=== PATIENT | male | born 1945 | race Caucasian/White ===

== ENCOUNTER 2020-05-30 10:15 | Outpatient (REF) | payer MEDICARE, OTHER, SELFPAY ==
[2020-05-30 11:27] LABS: MANUAL DIFF FLAG NO
[2020-05-30 11:30] LABS: Basophils Percent Auto 0.3 % (0-2); Eosinophils Absolute Auto 0.1 X10*3/uL (0.0-0.4); Eosinophils Percent Auto 1.7 % (0-4); Hematocrit 36.7 % (42-52); Hemoglobin 11.7 g/dl (14.0-18.0); Imm Gran Abs Auto 0.06 X10*3/uL (0.00-0.03); Imm Gran Pct Auto 0.9 % (0.0-0.4); Lymphocytes Absolute Auto 1.1 X10*3/uL (1.2-4.9); Lymphocytes Percent Auto 15.7 % (20-40); Mean Corpuscular HGB Conc 31.9 g/dl (31.0-36.0); Mean Corpuscular Hemoglobin 26.5 pg (27.0-33.0); Monocytes Absolute Auto 0.7 X10*3/uL (0.1-1.2); Monocytes Percent Auto 9.7 % (2-11); Neutrophils Absolute Auto 4.9 X10*3/uL (2.0-8.3); Neutrophils Percent Auto 71.7 % (45-73); Platelet Count 182 X10*3/uL (160-400); Red Blood Count 4.42 X10*6/uL (4.60-5.80); Red Cell Distribution Width 14.8 % (11.0-16.0); White Blood Count 6.9 X10*3/uL (4.8-10.8)
[2020-05-30 11:48] LABS: Anion Gap 13 (12-20); Blood Urea Nitrogen 28 mg/dL (9-16); Carbon Dioxide 26 mmol/L (22-29); Chloride 104 mmol/L (96-108); Estimated Glomerular Filt Rate 46; Potassium 4.1 mmol/l (3.3-5.1); Sodium 139 mmol/L (135-145)
== END 2020-05-30 10:16 | disposition home or self-care (01) ==
LOC: HO.LAB 10:15
PROVIDERS: Visit Provider Internal Medicine Hypertension Specialist
DX: I12.9 Hypertensive chronic kidney disease with stage 1 through stage 4 chronic kidney disease, or unspecified chronic kidney disease (principal); N18.2 Chronic kidney disease, stage 2 (mild)
CPT/HCPCS: 36415; 80051; 82565; 84520; 85025

== ENCOUNTER → 2020-07-05 08:19 | Outpatient (BNVA) | payer MEDICARE, SELFPAY | PROVIDERS: PCP Family Medicine; Referring Provider Family Medicine; Visit Provider Dietitian, Registered | DX: Z76.89 Persons encountering health services in other specified circumstances (principal) ==

== ENCOUNTER → 2020-07-05 08:19 | Outpatient (BNVA) | payer MEDICARE, SELFPAY | PROVIDERS: PCP Family Medicine; Referring Provider Family Medicine; Visit Provider Dietitian, Registered | DX: E66.9 Obesity, unspecified (principal) ==

== ENCOUNTER → 2020-08-23 11:09 | Outpatient (BNVA) | payer MEDICARE, SELFPAY | PROVIDERS: PCP Family Medicine; Visit Provider Dietitian, Registered | DX: Z76.89 Persons encountering health services in other specified circumstances (principal) ==

== ENCOUNTER 2022-04-29 14:42 | Emergency (ER) | payer MEDICARE, OTHER, SELFPAY ==
--- NOTE | ~2022-04-29 | CT_ITS ---
EXAM: CT scan of the head and cervical spine. INDICATION: Reason for Exam injury, pain TECHNIQUE: A noncontrast CT scan was performed from the skull base to the vertex. A noncontrast CT scan of the cervical spine was performed from the base of the skull through T1 at 2.5 mm and 1.25 mm collimation. Coronal and sagittal reformats were obtained at the acquisition workstation. This CT examination was performed using dose optimization techniques as appropriate, variously including the following: *Automated exposure control *Adjustment of mA and/or kV according to patient size (this includes techniques or standardized protocols for targeted exams where dose is matched to indication/reason for exam; i.e. extremities or head) *Use of iterative reconstruction technique DLP: 411 and 747 mGy-cm COMPARISON: None FINDINGS: Head: There is no evidence of acute intracranial hemorrhage or territorial infarction. Grimes-white matter differentiation is preserved. No abnormal mass effect or midline shift. No extra-axial fluid collections. The ventricles and sulcal spaces are proportional without hydrocephalus. Proportional prominence of the ventricles and sulcal spaces. No acute osseous or soft tissue abnormalities. The mastoid air cells and visualized portions of the paranasal sinuses are well aerated. Cervical Spine: The atlantooccipital and atlantoaxial articulations intact. Straightening of the normal cervical lordosis. Otherwise, there is anatomic alignment of the vertebral bodies and posterior elements. No evidence of acute fracture or subluxation. The moderately severe diffuse spondylosis.. There is no prevertebral soft tissue swelling. The thyroid gland and remaining cervical soft tissues are normal in appearance. The lung apices demonstrate no abnormalities. CT/CT cervical spine wo IV con IMPRESSION: No acute intracranial pathology. No acute fracture subluxation cervical spine. Moderate spondylosis.
[2022-04-29 15:43] VITALS: BP 166/78; PULSE 77; RESP 16; TEMP 35.9; O2SAT 95; BMI 27.9
--- NOTE | 2022-04-29 16:21 | ED.GENADULT ---
HPI - General Adult General Chief complaint: General Medical Stated complaint: Golf cart inj on Saturday, Headache, neck pain Time Seen by Provider: 04/29/22 15:50 Source: patient Mode of arrival: ambulatory Limitations: no limitations History of Present Illness HPI narrative: This is a 76-year-old male with a history of hypertension, hyperlipidemia, BPH, [id number]-qberrvqlj diabetes, GERD, diabetic neuropathy, pulmonary hypertension who is on 81 mg of aspirin who presents with headache and neck pain after an injury which occurred on Saturday. Patient tells me he was golfing about to take a swing when his partner knocked him over with the golf car. Patient believes he fell on the right side of his body but his head was looking to the left and he did strike his head. There was no loss of consciousness. He reports neck pain and headache since the injury. Also some abrasions over the right lower leg and right upper back. No chest pain, abdominal pain, back pain, vomiting, vision changes, dizziness, weakness/numbness/tingling of the upper or lower extremity Related Data Previous Rx's Medication Instructions Recorded cyclobenzaprine 10 mg tablet 10 mg PO TID PRN muscle spasm #15 04/29/22 tabs Allergies Allergy/AdvReac Type Severity Reaction Status Date / Time demerol Allergy Unknown itching Uncoded 04/20/20 00:00 From DEMEROL AdvReac Mild ITCHINESS Uncoded 05/05/20 15:39 Review of Systems Review of Systems: Yes all other systems are reviewed and are negative Constitutional: Constitutional: Reports no additional constitutional complaints, Denies body ache(s), Denies chills, Denies fever(s), Reports headache(s) and Denies weakness Eyes: Eyes: Reports no additional eye complaints and Denies change in vision ENT: Reports system reviewed and no additional complaints, except as documented, Denies dizziness, Reports headache(s), Denies nasal congestion, Denies nasal discharge and Reports neck pain Cardiovascular: Cardiovascular: Reports no additional cardiovascular complaints, Denies chest pain, Denies leg edema and Denies dyspnea Respiratory: Respiratory: Reports no additional respiratory complaints, Denies cough and Denies dyspnea Gastrointestinal: Gastrointestinal: Reports no additional gastrointestinal complaints, Denies abdominal pain, Denies diarrhea, Denies nausea and Denies vomiting Genitourinary: Genitourinary: Denies urinary incontinence Musculoskeletal: Musculoskeletal: Reports no additional musculoskeletal complaints, Denies back pain, Denies arthralgias, Denies joint swelling, Reports neck pain, Denies numbness and Denies tingling Integumentary/Breasts: Skin/Breast: Reports system reviewed and no additional complaints, except as docu and Denies rash Neurologic: Reports system reviewed and no additional complaints, except as documented, Denies dizziness, Reports headache(s), Denies numbness, Denies tingling and Denies weakness [facility] Past Medical History Attestation statement: The following information was validated with the patient. Source: old records reviewed and nursing notes reviewed Social History Social History Advance Directives: No Advance Directives Information Provided: Yes Physical Exam ED Vital Signs: Vital Signs - 24 hr 04/29/22 15:43 Temperature 96.7 F L Pulse Rate 77 Respiratory Rate 16 Blood Pressure 166/78 H Pulse Oximetry 95 Oxygen Delivery Method Room Air BMI result Body Mass Index 27.9 Const General: cooperative, healthy appearing and comfortable Orientation/consciousness: patient oriented x3 Limitations: no limitations HENMT Head: Yes normal to inspection, No Bruner's sign and No raccoon eyes Ears: hearing grossly normal bilaterally and TM's normal bilaterally General nose exam: Normal external nose present Face and sinus: Yes normal facial exam Mouth: Normal oral and palatal mucosa present Throat: Yes posterior oropharynx normal, Yes tonsils normal and Yes uvula midline Eyes General: appearance normal, both eyes and all related structures Pupils: Equal, round and reactive pupils present Neck Other: Patient has midline cervical tenderness with no step-offs deformities-range of motion not assessed as cervical collar is in place Neck: Yes normal visual inspection Chest Chest palpation & inspection: normal inspection of the chest Resp Effort & Inspection: normal respiratory effort Auscultation: clear to auscultation bilaterally Cardio Rate: regular rate Rhythm: regular rhythm Peripheral pulses: Peripheral pulses 2+ throughout GI Inspection: Yes normal to inspection Palpation (GI): Soft to palpation and nontender General: Yes no CVA tenderness Back/Spine/Pelvis Back: no CVA tenderness Thoracic/Lumbar Spine: thoracic and lumbar spine normal to inspection Skin General skin exam: no rashes or lesions noted Neuro General: patient oriented x3 and moves all extremities Cranial nerves: Yes CN's II-XII intact bilaterally, Yes Equal, round and reactive pupils present, Yes Bilaterally intact EOM present, Yes Nystagmus not present, Yes Normal facial strength present and Yes Midline tongue present Cognition (Neuro): normal cognition Gait exam (Neuro): Normal gait present Motor exam (neuro): 5/5 motor strength present throughout Sensory Exam: Normal double simultaneous stimulation for sensation Extrem General: Yes normal to inspection, Yes no pedal edema and Yes no calf tenderness Course Course Course Narrative: CT head and cervical spine IMPRESSION: No acute intracranial pathology. No acute fracture subluxation cervical spine. Moderate spondylosis. ? -patient informed of results. Cervical collar was removed. Plan for discharge home with recommendations for low-dose muscle relaxants as well as Tylenol as needed. Reviewed worrisome signs and symptoms of when to return to the emergency room. Comfortable discharge home. Medical Decision Making MDM Narrative Medical decision making narrative: 76-year-old male here with headache and neck pain after a fall which occurred on Saturday afternoon. Patient is on aspirin 81 mg only. He does have midline tenderness over the cervical spine and so a cervical collar was placed. No overt neurological deficits. Does report mild headache. Due to age will check CT head and cervical spine Medical Records Medical records reviewed: Yes I reviewed the patient's medical records. Lab Data Lab results reviewed: Yes I reviewed the patient's lab results. Imaging Data CT scan - head: Attestation: I personally reviewed and interpreted this imaging study as follows: Radiologist's impression: [place] [id number] CT Scan Report Signed Patient: Chris Madrigal MR#: [id number] : 1945 Acct:[id number] Age/Sex: 76 / M ADM Date: 04/29/22 Loc: HO.ED Attending Dr: Ordering Physician: Angela Malik NP Date of Service: 04/29/22 Procedure(s): CT cervical spine wo IV con Accession Number(s): [id number] cc: Angela Malik NP~ EXAM: CT scan of the head and cervical spine. INDICATION: Reason for Exam injury, pain TECHNIQUE: A noncontrast CT scan was performed from the skull base to the vertex. A noncontrast CT scan of the cervical spine was performed from the base of the skull through T1 at 2.5 mm and 1.25 mm collimation. Coronal and sagittal reformats were obtained at the acquisition workstation. This CT examination was performed using dose optimization techniques as appropriate, variously including the following: *Automated exposure control *Adjustment of mA and/or kV according to patient size (this includes techniques or standardized protocols for targeted exams where dose is matched to indication/reason for exam; i.e. extremities or head) *Use of iterative reconstruction technique DLP: 411 and 747 ? mGy-cm COMPARISON: None FINDINGS: Head: There is no evidence of acute intracranial hemorrhage or territorial infarction. Grimes-white matter differentiation is preserved. No abnormal mass effect or midline shift. No extra-axial fluid collections.? The ventricles and sulcal spaces are proportional without hydrocephalus. ?Proportional prominence of the ventricles and sulcal spaces. No acute osseous or soft tissue abnormalities. The mastoid air cells and visualized portions of the paranasal sinuses are well aerated. Cervical Spine: The atlantooccipital and atlantoaxial articulations intact. Straightening of the normal cervical lordosis. Otherwise, there is anatomic alignment of the vertebral bodies and posterior elements. No evidence of acute fracture or subluxation. The moderately severe diffuse spondylosis.. There is no prevertebral soft tissue swelling. The thyroid gland and remaining cervical soft tissues are normal in appearance. The lung apices demonstrate no abnormalities. CT/CT cervical spine wo IV con IMPRESSION: No acute intracranial pathology. No acute fracture subluxation cervical spine. Moderate spondylosis. ? ? ? Discharge Plan Discharge Clinical Impression: Cervical strain Patient Disposition: Home, Self-Care Instructions: Cervical Strain (ED) Additional Instructions: Heat to the area Gentle stretching Continue Tylenol as needed for pain Take the 1st dose of Flexeril tonight before going to bed Prescriptions: New cyclobenzaprine 10 mg tablet 10 mg PO TID PRN (Reason: muscle spasm) Qty: 15 0RF
[2022-04-29] MEDS: Cyclobenzaprine HCl 10 MG TABLET PO (17:30)
== END 2022-04-29 17:33 | disposition home or self-care (01) ==
PROVIDERS: Emergency Provider Emergency Medicine; PCP Family Medicine
DX: S13.4XXA Sprain of ligaments of cervical spine, initial encounter (principal); R51.9 Headache, unspecified; M54.2 Cervicalgia; Y29.XXXA Contact with blunt object, undetermined intent, initial encounter; Y93.53 Activity, golf; Y92.39 Other specified sports and athletic area as the place of occurrence of the external cause; Y99.9 Unspecified external cause status
CPT/HCPCS: 70450; 72125; 99283

== ENCOUNTER 2022-11-27 14:44 | Outpatient (REF) | payer MEDICARE, OTHER, SELFPAY ==
[2022-11-27 16:25] LABS: Leukocytes Stool Qualitative NEGATIVE (NEGATIVE)
[2022-11-28 09:48] LABS: Adenovirus F 40/41 Not Detected (Not Detect.); Astrovirus Not Detected (Not Detect.); Campylobacter Not Detected (Not Detect.); Cryptosporidium Not Detected (Not Detect.); Cyclospora cayetanensis Not Detected (Not Detect.); E. coli EAEC Not Detected (Not Detect.); E. coli EPEC Not Detected (Not Detect.); E. coli ETEC Not Detected (Not Detect.); E. coli STEC Not Detected (Not Detect.); Entamoeba histolytica Not Detected (Not Detect.); Giardia lamblia Not Detected (Not Detect.); Norovirus GI/GII Not Detected (Not Detect.); Plesiomonas shigelloides Not Detected (Not Detect.); Rotavirus A Not Detected (Not Detect.); Salmonella Not Detected (Not Detect.); Sapovirus Not Detected (Not Detect.); Shigella sp./EIEC Not Detected (Not Detect.); Vibrio Not Detected (Not Detect.); Vibrio Cholerae Not Detected (Not Detect.); Yersinia enterocolitica Not Detected (Not Detect.)
== END 2022-11-27 14:45 | disposition home or self-care (01) ==
LOC: HO.LNP 14:44
PROVIDERS: Visit Provider Internal Medicine Gastroenterology
DX: R19.7 Diarrhea, unspecified (principal)
CPT/HCPCS: 87177; 87209; 87507; 89055

== ENCOUNTER → 2023-06-19 10:34 | Outpatient (BNVA) | payer MEDICARE, OTHER, SELFPAY | PROVIDERS: PCP Family Medicine; Visit Provider Internal Medicine Hypertension Specialist | DX: I12.9 Hypertensive chronic kidney disease with stage 1 through stage 4 chronic kidney disease, or unspecified chronic kidney disease (principal); E11.22 Type 2 diabetes mellitus with diabetic chronic kidney disease; N18.30 Chronic kidney disease, stage 3 unspecified; E23.2 Diabetes insipidus; J84.10 Pulmonary fibrosis, unspecified; E66.9 Obesity, unspecified; Z68.28 Body mass index [BMI] 28.0-28.9, adult; R19.7 Diarrhea, unspecified | CPT/HCPCS: 99212 ==

== ENCOUNTER 2023-06-19 10:37 | Outpatient (AMB) | payer MEDICARE, OTHER, SELFPAY ==
--- NOTE | 2023-06-19 10:38 | A.OFFVIS_ITS ---
Intake Vital Signs 06/19/23 10:41 Height 5 ft 8 in Weight 190 lb BMI 28.9 Blood Pressure Location Rt brachial Position Sitting Intake Visit Reasons: CKD, HTN (hypertension) Tape Folding Machine Operator Required: No Senior Agricultural Assistant: Senior Agricultural Assistant Present (spouse) Accompanied by: Spouse Allergies demerol Allergy (Unknown, Uncoded 04/20/20 00:00) itching From DEMEROL Adverse Reaction (Mild, Uncoded 05/05/20 15:39) ITCHINESS HPI Hypertension (Cardio) Most Recent Cardiac Tests: No Data to Display Physical Exam Vital Signs: BMI result Body Mass Index 28.9 Assessment & Plan Assessment & Plan (1) Hypertension: Code(s): I10 - Essential (primary) hypertension Coding Diagnoses Hypertension I10
[2023-06-19 10:41] VITALS: O2SAT 96; BMI 28.9
--- NOTE | 2023-06-19 10:48 | HO.NEPHOV_ITS ---
Intake Vital Signs 06/19/23 10:41 Height 5 ft 8 in Weight 190 lb BMI 28.9 Blood Pressure Location Rt brachial Position Sitting Pulse Oximetry (%) 96 Intake Visit Reasons: CKD Director Of Rotc Required: No Source Water Protection Specialist: Source Water Protection Specialist Present (spouse) Allergies demerol Allergy (Unknown, Uncoded 04/20/20 00:00) itching From DEMEROL Adverse Reaction (Mild, Uncoded 05/05/20 15:39) ITCHINESS Assessment & Plan Assessment & Plan (1) CKD (chronic kidney disease) stage 2, GFR 60-89 ml/min: Code(s): N18.2 - Chronic kidney disease, stage 2 (mild) (2) HTN (hypertension): Code(s): I10 - Essential (primary) hypertension (3) Diabetes insipidus, neurohypophyseal: Code(s): E23.2 - Diabetes insipidus (4) Pulmonary fibrosis: Code(s): J84.10 - Pulmonary fibrosis, unspecified (5) Obesity: Code(s): E66.9 - Obesity, unspecified Plan 1. Hypertension. Blood pressure is well controlled. No changes to antihypertensive regimen He needs to stay on low-sodium diet. 2. Nonischemic cardiomyopathy. Follow-up with [facility]. 3. Chronic kidney disease stage 3. Serum creatinine stable at 1.6. Fluid status is optimal. Next item no indication for a diuretic at this time. Will benefit from SGLT2 inhibitor. Continue to avoid nephrotoxic agents. 4. Mild decrease T SAT. Hemoglobin is 15.2. Total iron and ferritin are normal. No absolute indication for iron replacement at this time. 5. Diabetes mellitus. Currently he has switched from Trulicity to Ozempic and the dose is being titrated. Can use metformin until Ozempic has been titrated. 6. Diarrhea has improved after discontinuing metformin. He is going on a cruise in the next few days. I have encouraged him to watch his diet. No changes are made to his medications today. All his questions were answered. Orders: Orders Calcium 3 Months N18.2 - Chronic kidney disease, stage 2 (mild) Electrolytes 3 Months N18.2 - Chronic kidney disease, stage 2 (mild) Blood Urea Nitrogen 3 Months N18.2 - Chronic kidney disease, stage 2 (mild) Creatinine 3 Months N18.2 - Chronic kidney disease, stage 2 (mild) Coding Level of Care Code Est Pt Level 4 (57576) Diagnoses CKD (chronic kidney disease) stage 2, GFR 60-89 ml/min N18.2 HTN (hypertension) I10 Diabetes insipidus, neurohypophyseal E23.2 Pulmonary fibrosis J84.10 Obesity E66.9 Results Reviewed Results Reviewed: Cr 1.6 as of 06/14 at [facility]
== END 2023-06-19 11:15 | disposition home or self-care (01) ==
PROVIDERS: PCP Family Medicine; Visit Provider Internal Medicine Hypertension Specialist
DX: I12.9 Hypertensive chronic kidney disease with stage 1 through stage 4 chronic kidney disease, or unspecified chronic kidney disease (principal); E23.2 Diabetes insipidus; J84.10 Pulmonary fibrosis, unspecified; E66.9 Obesity, unspecified
CPT/HCPCS: 99214

== ENCOUNTER 2023-10-31 10:37 | Outpatient (AMB) | payer MEDICARE, OTHER, SELFPAY ==
[2023-10-31 10:39] VITALS: BP 98/68; PULSE 74; O2SAT 96; BMI 26.6
--- NOTE | 2023-10-31 10:39 | HO.NEPHOV ---
HPI HPI Comments History of Present Illness Details Mariajose is a 78-year-old man with history of longstanding hypertension and diabetes mellitus complicated by coronary disease and mild CKD. He has pulmonary hypertension as well. He developed diarrhea with metformin which has improved. From a renal standpoint he is doing reasonably well. Continues have shortness of breath on exertion. He is being evaluated by Cardiology and Pulmonary. He is waiting for a 6 minutes stress test. 10/30: Now on Ozempic- self prescribed Also on Jardiance Diarrhea is better A1C is 5.8% [facility] Family History (Updated 10/31/23 @ 10:42 by Kandice Timmons) Father Heart attack Diabetes Mother Heart attack Lung cancer Vital Signs 10/31/23 10:39 Height 5 ft 8 in Weight 175 lb BMI 26.6 BP 98/68 Blood Pressure Location Lt brachial Position Sitting Pulse 74 Pulse Source Pulse Oximeter Pulse Oximetry (%) 96 Oxygen Delivery Method Room Air Physical Exam Vital Signs: Last Vital Signs Pulse 74 10/31/23 10:39 BP 98/68 10/31/23 10:39 Pulse Ox 96 10/31/23 10:39 Oxygen Delivery Method Room Air 10/31/23 10:39 BMI result Body Mass Index 26.6 Blood pressure remains low. Sitting blood pressure was 102/60. Standing blood pressure was 80/50. Asymptomatic. 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 1. Hypertension. Blood pressure is rather low DEcrease AMLODIPINE to 2.5 mg QD 2. Nonischemic cardiomyopathy. Follow-up with [facility]. 3. Chronic kidney disease stage 3. Serum creatinine stable at 1.5 Fluid status is optimal. Next item no indication for a diuretic at this time. Will benefit from SGLT2 inhibitor. Continue to avoid nephrotoxic agents. 4. Mild decrease T SAT. Hemoglobin is 15.2. Total iron and ferritin are normal. No absolute indication for iron replacement at this time. 5. Diabetes mellitus. Currently he has switched from Trulicity to Ozempic and the dose is being titrated. Recent A1C is 5.8%. 6. Diarrhea has improved All his questions were answered. Orders: Orders Comprehensive Met. Panel 4 Months N18.9 - Chronic kidney disease, unspecified Complete Blood Count Auto Diff 4 Months N18.30 - Chronic kidney disease, stage 3 unspecified Coding Level of Care Code Est Pt Level 4 (28254) Diagnoses CKD (chronic kidney disease) stage 2, GFR 60-89 ml/min N18.2 HTN (hypertension) I10 Diabetes insipidus, neurohypophyseal E23.2 Pulmonary fibrosis J84.10 Obesity E66.9 Results Reviewed Results Reviewed: 10/24/23: Cr 1.5 Nephrology Results: Hgb 11.7 g/dl (14.0-18.0) L 05/30/20 WBC 6.9 X10*3/uL (4.8-10.8) 05/30/20 Plt Count 182 X10*3/uL (160-400) 05/30/20 Sodium 139 mmol/L (135-145) 05/30/20 Potassium 4.1 mmol/l (3.3-5.1) 05/30/20 Chloride 104 mmol/L (96-108) 05/30/20 Carbon Dioxide 26 mmol/L (22-29) 05/30/20 BUN 28 mg/dL (9-16) H 05/30/20 Creatinine 1.49 mg/dL (0.5-1.4) H 05/30/20 Calcium 9.0 MG/DL (8.4-10.2) 02/02/20
== END 2023-10-31 11:17 | disposition home or self-care (01) ==
PROVIDERS: PCP Family Medicine; Visit Provider Internal Medicine Hypertension Specialist
DX: I12.9 Hypertensive chronic kidney disease with stage 1 through stage 4 chronic kidney disease, or unspecified chronic kidney disease (principal); N18.2 Chronic kidney disease, stage 2 (mild); E23.2 Diabetes insipidus; J84.10 Pulmonary fibrosis, unspecified; E66.9 Obesity, unspecified
CPT/HCPCS: 99214

== ENCOUNTER → 2023-10-31 10:37 | Outpatient (BNVA) | payer MEDICARE, OTHER, SELFPAY | PROVIDERS: PCP Family Medicine; Visit Provider Internal Medicine Hypertension Specialist | DX: I12.9 Hypertensive chronic kidney disease with stage 1 through stage 4 chronic kidney disease, or unspecified chronic kidney disease (principal); N18.2 Chronic kidney disease, stage 2 (mild); E23.2 Diabetes insipidus | CPT/HCPCS: 99212 ==

== ENCOUNTER 2024-04-07 11:21 | Outpatient (AMB) | payer MEDICARE, OTHER, SELFPAY ==
[2024-04-07 11:22] VITALS: BP 100/64; PULSE 80; O2SAT 94; BMI 28.3
--- NOTE | 2024-04-07 11:22 | HO.NEPHOV ---
Vital Signs 04/07/24 11:22 04/07/24 11:38 Height 5 ft 8 in Weight 186 lb BMI 28.3 BP 100/64 120/60 Blood Pressure Location Lt brachial Rt radial Position Sitting Right Lateral Pulse 80 Pulse Source Pulse Oximeter Pulse Oximetry (%) 94 Oxygen Delivery Method Room Air Intake Visit Reasons: / March FU/ Conf Nut Processing Supervisor Required: No Accompanied by: Spouse Allergies demerol Allergy (Unknown, Uncoded 04/20/20 00:00) itching From DEMEROL Adverse Reaction (Mild, Uncoded 05/05/20 15:39) ITCHINESS Medication List - Last Reconciled 04/07/24 by Jovani Oneill MD amitriptyline 25 mg PO BEDTIME amlodipine (Norvasc) 5 mg PO DAILY aspirin 81 mg PO DAILY atorvastatin 80 mg PO DAILY citalopram 10 mg PO DAILY coenzyme Q10 (H2Q CoQ10) 100 mg PO cyclobenzaprine 10 mg PO TID PRN empagliflozin (Jardiance) 10 mg PO DAILY ferrous sulfate 325 mg PO DAILY finasteride 5 mg PO DAILY furosemide 40 mg PO DAILY isosorbide mononitrate ER 120 mg PO DAILY metoprolol tartrate 100 mg PO BID xsxblqhgyzjg-ujdzynqg-dgqzzb 1 tab PO DAILY nitroglycerin mg sublingual pantoprazole 40 mg PO DAILY pregabalin 75 mg PO TID semaglutide (Ozempic) 1 mg subcut QWEEK HPI Comments Details: Mariajose is a 78-year-old man with history of longstanding hypertension and diabetes mellitus complicated by coronary disease and mild CKD. He has pulmonary hypertension as well. He developed diarrhea with metformin which has improved. From a renal standpoint he is doing reasonably well. Continues have shortness of breath on exertion. He is being evaluated by Cardiology and Pulmonary. He is waiting for a 6 minutes stress test. 10/30: Now on Ozempic- self prescribed Also on Jardiance Diarrhea is better A1C is 5.8% 04/07/24 Off Benicar; HOme BP is OK No further diarrhea No change in resp status c/o leg pain / ache when he walks [facility] Family History Father Heart attack Diabetes Mother Heart attack Lung cancer Physical Exam Vital Signs: Last Vital Signs Pulse 80 04/07/24 11:22 BP 120/60 04/07/24 11:38 Pulse Ox 94 04/07/24 11:22 Oxygen Delivery Method Room Air 04/07/24 11:22 BMI result Body Mass Index 28.3 Results Reviewed Nephrology Results: Hgb 11.7 g/dl (14.0-18.0) L 05/30/20 WBC 6.9 X10*3/uL (4.8-10.8) 05/30/20 Plt Count 182 X10*3/uL (160-400) 05/30/20 Sodium 139 mmol/L (135-145) 05/30/20 Potassium 4.1 mmol/l (3.3-5.1) 05/30/20 Chloride 104 mmol/L (96-108) 05/30/20 Carbon Dioxide 26 mmol/L (22-29) 05/30/20 BUN 28 mg/dL (9-16) H 05/30/20 Creatinine 1.49 mg/dL (0.5-1.4) H 05/30/20 Assessment & Plan Assessment & Plan (1) CKD (chronic kidney disease) stage 2, GFR 60-89 ml/min: Code(s): N18.2 - Chronic kidney disease, stage 2 (mild) Category: Medical (2) HTN (hypertension): Code(s): I10 - Essential (primary) hypertension Category: Medical (3) Diabetes insipidus, neurohypophyseal: Code(s): 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 1. Hypertension. Blood pressure is acceptable 2. Nonischemic cardiomyopathy. Follow-up with [facility]. 3. Chronic kidney disease stage 3. Serum creatinine stable at 1.6 Fluid status is optimal. Next item no indication for a diuretic at this time. Will benefit from SGLT2 inhibitor. Continue to avoid nephrotoxic agents. 4. Polycythemia Hemoglobin is 17.2. Has follow-up appointment with Hematology tomorrow 5. Diabetes mellitus. Currently he has switched from Trulicity to Ozempic and the dose is being titrated. 6. Diarrhea has improved All his questions were answered. Orders: Orders Basic Metabolic Panel 4 Months N18.2 - Chronic kidney disease, stage 2 (mild) Complete Blood Count Auto Diff 4 Months N18.2 - Chronic kidney disease, stage 2 (mild) Coding Level of Care Code Est Pt Level 4 (72832) Diagnoses CKD (chronic kidney disease) stage 2, GFR 60-89 ml/min N18.2 HTN (hypertension) I10 Diabetes insipidus, neurohypophyseal E23.2 Pulmonary fibrosis J84.10 Obesity E66.9
[2024-04-07 11:38] VITALS: BP 120/60
== END 2024-04-07 11:50 | disposition home or self-care (01) ==
PROVIDERS: PCP Family Medicine; Visit Provider Internal Medicine Hypertension Specialist
DX: I12.9 Hypertensive chronic kidney disease with stage 1 through stage 4 chronic kidney disease, or unspecified chronic kidney disease (principal); E11.22 Type 2 diabetes mellitus with diabetic chronic kidney disease; N18.30 Chronic kidney disease, stage 3 unspecified; J84.10 Pulmonary fibrosis, unspecified; E66.9 Obesity, unspecified
CPT/HCPCS: 99214

== ENCOUNTER → 2024-04-07 11:21 | Outpatient (BNVA) | payer MEDICARE, OTHER, SELFPAY | PROVIDERS: PCP Family Medicine; Visit Provider Internal Medicine Hypertension Specialist | DX: I12.9 Hypertensive chronic kidney disease with stage 1 through stage 4 chronic kidney disease, or unspecified chronic kidney disease (principal); N18.2 Chronic kidney disease, stage 2 (mild); E23.2 Diabetes insipidus; J84.10 Pulmonary fibrosis, unspecified; E66.9 Obesity, unspecified; Z68.28 Body mass index [BMI] 28.0-28.9, adult | CPT/HCPCS: 99212 ==

== ENCOUNTER 2024-08-03 10:13 | Outpatient (AMB) | payer MEDICARE, OTHER, SELFPAY ==
--- OUTSIDE RECORDS SUMMARY | 2024-08-03 10:16 | XMS_ITS ---
Author Organization [facility] Address [address] [place] [address] Care Team Providers Care Trimmer Sawyer Name Role Phone Jalil Ryan MD Primary Care Provider Unavailab Alpa Johnson Unavailable [phone] REASON FOR VISIT wounds on left foot way worse Medications Medication SIG (Take, Route, Fr equency, Duration) Notes Start Date End Date Status Cephalexin 500 MG 1 capsule Orally lamonte ry 12 hrs for 7 days Active Encounters Encounter Location Date Provider Diagnosis [facility] [address] [place] [address] 07/31/2024 Alpa Avelar Cellulitis of toe of left foot L03.032 Assessments Encounter Date Diagnosis (ICD Code) Assessment Notes Treatment Notes Treatment Clinical Notes Section Notes 07/31/2024 Cellulitis of toe of left foot (ICD-10 - L03.032) Plan Of Treatment Medication Medication Name Sig Start Date Stop Date Notes Cephalexin 500 MG 1 capsule Orally every 12 hrs for 7 days Next Appt Details Provider Name:Alpa phan, 08/07/2024 10:15:00 AM, [address] [place], [address], Progress Notes * Chris MADRIGAL MDOB:[birth year] (78 yo M)Acc No.[id number]:07/31/2024 Patient:?Chris MADRIGAL :1945???Age:78 Y???Sex:Male Address:[address] [place] [address] Rd, [place] [address] * Refills? Refill Cephalexin Capsule, 500 MG, Orally, 14 Capsule, 1 capsule, every 12 hrs, 7 days, Refills=0 * true * Date:? Generated for Candace prieto/Naveed/Harmeteitting on:?08/03/2024 10:15 AM EST
--- OUTSIDE RECORDS SUMMARY | 2024-08-03 10:16 | XMS_ITS ---
Author Organization [facility] Address [address] [place] [phone] Care Team Providers Care Fancy Needleworker Name Role Phone Connor CARDENAS, Jalil Primary Care Provider Unavailab Zurdo Luz Jr REASON FOR VISIT Patient presents today for diarrhea Encounters Encounter Location Date Provider Diagnosis [facility] [address] [place] [address] [place] [phone] 07/29/2024 Zurdo Frausto Jr PLAN OF TREATMENT Next Appt Details Provider Name:Zurdo milian Jr, 11/23/2024 09:00:00 AM, [address] [place] [address], [address], [place], [address],
--- OUTSIDE RECORDS SUMMARY | 2024-08-03 10:16 | XMS_ITS ---
[facility] Organization [facility] Address [address] [address] Care Team Providers Care Academic Affairs Dean Name Role Phone Connor CARDENAS, Jalil Primary Care Provider UnavailAlpa Carreon Unavailable [phone] Allergies Allergen (clinical drug ingredient) Drug/Non Drug Allergy documented on EMR Reaction Allergy Type Onset Date Status meperidine Demerol itch Drug Allergy Active REASON FOR VISIT Open sore Medications Medication SIG (Take, Route, Frequency, Duration) Notes Start Date End Date Status Prilosec Not-Taking Gabapentin Not-Takin g Simvastatin 40 MG Orally No t-Taking Omeprazole Not-Takin g Voltaren 1 % as directed Transdermal Apply to affected area(s) four times a day for 30 days 01/07/2019 Not-Taking Physical Therapy . . . 2-3x/week for 3-4 weeks 07/17/2022 Not-Taking Glucophage 500 MG 1 tab Orally once a day x2 500 Not-Taking Benicar 20 MG Orally Not-Ta laura hydroCHLOROthiazide 12.5 MG 1 capsule in the morning Orally Once a day for 30 day(s) Not-Taking Ambrisentan 5 MG 1 tablet Orally Once a day for 30 day(s) Not-Taking traMADol HCl 50 MG 1 tablet as needed Orally Every 6 hours as need for pain for 7 days 06/26/2022 Not-Taking Ibuprofen 800 MG 1 tablet Orally Three times a day for 7 days 06/26/2022 Not-Taking Ferrous Gluconate No t-Taking Extra Depth Orthopedic Shoes (1 Pair) with Customized Heat Molded Multidensity Innersoles (3 Pair) as directed Dx: NIDDM/Polyneuropath y (E11.42), Hammertoe Foot Deformity (M20.41,M20.42), Preulcerative Skin Lesion(s) (L85.1 10/27/2019 Not-Taking Lasix 40 MG Orally Not-Taki ng Cephalexin 500 MG 1 capsule Orally every 12 hrs for 7 days Not-Taking Cephalexin 500 MG 1 capsule Orally every 12 hrs for 7 days Not-Taking Santyl 250 UNIT/GM 1 application to affected area Externally to Foot Ulcer Once a day to wound 0.5 cm x 0.5 cm x 0.3 cm left 5th toe for 30 days 11/07/2023 Not-Taking Keflex 500 MG 1 capsule Orally every 12 hrs for 5 days 07/16/2023 Not-Taking Trulicity 3 MG/0.5ML as directed Subcutaneous Not-Taking Questran 2 Scoops a day Not-Taking Amitriptyline HCl 25 MG 1 tablet at bedt dayana Orally Once a day for 30 day(s) Not-Taking Doxycycline Monohydrate 100 MG 1 tablet Orally Twice a day for 7 days 12/02/2023 Not-Taking Extra Depth Orthopedic Shoes (1 Pair) with Customized Heat Molded Multidensity Innersoles (3 Pair) as directed Dx: NIDDM/Polyneuropath y (E11.42), Hammertoe Foot Deformity (M20.41,M20.42), Preulcerative Skin Lesion(s) (L85.1 11/07/2023 Active Pantoprazole Sodium 40 MG 1 tablet Orall y Once a day Active Atorvastatin Calcium 80 MG 1 tablet Orally Once a day for 30 day(s) Active Norvasc 5 MG Orally Once a day Active Metoprolol Succinate 50 MG 1 capsule Orally Once a day for 30 day(s) Active Jardiance 25 MG 1 tablet Orally Once a day for 30 days Active Extra Depth Orthopedic Shoes (1 Pair) with Customized Heat Molded Multidensity Innersoles (3 Pair) as directed Dx: NIDDM/Polyneuropath y (E11.42), Hammertoe Foot Deformity (M20.41,M20.42), Preulcerative Skin Lesion(s) (L85.1 10/12/2022 Active Finasteride 5 MG 1 tablet Orally Once a day Active Citalopram Hydrobromide 10 MG Orally Active Lopressor 100 MG Orally Twice a day Active Isosorbide Mononitrate 120 1 tablet once a day Active Flomax Active PriLOSEC Not-Taking CoQ-10 Active Ozempic Active Lyrica x3 a day Active aspirin baby Active Centrum Silver Activ e Probiotic Active Dicyclomine HCl Acti ve Benefiber Active amLODIPine Besylate 2.5 MG 1 tablet Orally Once a day Active Lipitor Active Ferrous Gluconate Ac tive Social History Tobacco Use: Social History Observation Description Date Details (start date - stop date) Never Smoker NA - NA Tobacco Use/Smoking Question Answer Notes Are you a: nonsmoker Additional Findings: Tobacco Non-User Current no n-smoker Alcohol Screen Question Answer Notes Did you have a drink containing alcohol in the p ast year? No Points 0 Interpretation Negative Tobacco use other than smoking: Question Answer Notes Are you an other tobacco user? 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 pdf (WOUND CARE INSTRUCTIONS. pdf) 07/24/2024 Type 2 diabetes mellitus with diabetic polyneuropathy (ICD-10 - E11.42) Plan Of Treatment Treatment Notes Assessment Notes Neurotrophic ulcer of left f oot limited to breakdown of skin Patient Educated with: WOUND CARE INSTRUCTIONS.pdf (WOUND CARE INSTRUCTIONS.pdf) Next Appt Details Follow Up: as scheduled, Courtney son: Provider Name:Alpa phan, 08/07/2024 10:15:00 AM, [address] [place] [address], [id number], Progress Notes * Chris BRIGHT MDOB:[birth year] (78 yo M)Acc No.[id number]:07/24/2024 Progress Notes Patient:?Chris BRIGHT Provider:?Alpa Avelar DPM :1945???Age:78 Y???Sex:Male Virgil e:07/24/2024 Address:[address] [place] [address], [facility] Pcp:Jalil Ryan MD Subjective: * Chief Complaints: * ???Open sore * HPI: ???Skin problems:?Location:?Top, Forefoot, Left.?Duration:?several days.?Onset/Cause:?unknown.? * ROS:?General/Constitutional:?Nausea?denies.?Vomiting?denies.?Hunger Thirst?denies.?Loss appetite?denies.?Chills?denies.?Fatigue?denies.?Fever?denies.?Night Sweats?denies.?Unexplained weight loss?denies.?Unexplained weight gain?denies.?HEENTM:?Dentures?denies.?Dizziness?denies.?Glasses/contacts?denies.?Retinopathy?den ies.?Blurred/double vision?denies.?TMJ?denies.?Discharge/drainage?denies.?Implants?denies.?Sore throat?denies.?Dental implants?denies.?Hard of hearing ?denies.?Difficulty chewing/swallowing/speaking?denies.?Nose bleeds?denies.?Sore mouth?denies.?Respiratory:?On O xygen?denies.?Pneumonia/pleurisy?denies.?Bronchitis?denies.?Emphysema?denies.?Co ughing?denies.?Cough blood?denies.?Shortness of breath?denies.?Wheezing?denies.?Cardiovascular:?Pacemaker?denies.?MVP?denies.?WPW?denies.?CHF?denies.?Heart attack?denies.?Septal defect?denies.?Rapid beat?denies.?Chest pain ?denies.?Atrial Fib.?denies.?Murmur/Palpitations?denies.?Gastrointestinal:?Hemorrhoids?denies.?Stomach/Abdominal pain?denies.?Dark blood stool?denies.?Irritable bowel ?denies.?Constipation?denies.?Diarrhea?denies.?Hematology:?Swelling?denies.?Clots?denies.?Varicose Veins?denies.?Bruising?admits.?Bleeding problem?admits.?Genitourinary:?Blood urine?denies.?Frequent/Painfu/urination/bladder control?denies.?Kidney stones?denies.?Infection (UTI)?denies.?Nephropathy?denies.?sex trans dis (STD)?denies.?Prostate?denies.?Musculoskeletal:?Hammertoes?admits.?Bunions?denies.?Back Pain?denies.?Muscle Cramps/ Resting?denies.?Muscle cramps / walking?denies.?Generalized aches and pains?denies.?Weakness?denies.?Integ.:?Ferrari?denies.?Scars?denies.?Corns/calluses?admits.?Ingrown nails?denies.?Painful nails?denies.?Open Sores?denies.?Rashes?denies.?Neurologic:?Difficulty sleeping?denies.?Brain disorder?denies.?Numbness?admits.?Balance t rouble?denies.?Confusion?denies.?Fainting/blackouts?denies.?Tingling?denies.?Zachary mors?denies.? * Medical History:? * Surgical History:?Stent gall bladder hernias cardiac catheterization 05/07/2019knee surgery- tore ACL and left Meniscus repair 02/08/20Cataract-Right 05/06/2020Cataract surgery left eye 05/20/20checked the pressure in the right side of heart il hammer toe etina surgery 05/09/2023 * Hospitalization/Major Diagno stic Procedure:?[facility]/ Dehydration 07/19/22[facility]- wound infection 02/27/24 * Family History:?Mother: dece ased, heart attack, diagnosed with Other malignant neoplasm of unspecified site, Unspecified essential hypertension, Unspecified heart disease.?Father: , heart attack, diagnosed with Diabetic - NIDDM, Unspecified essential hypertension, Unspecified heart disease.?Spouse: alive.? * Social History:?Tobacco Use:?Tobacco Use/Smoking?Are you a:?nonsmoker ?Additional Findings: Tobacco Non-User?Current non-smoker ?Tobacco use other than smoking?Are you an other tobacco user??No ???Drugs/Alcohol:?Drugs?Have you used drugs other than those for medical reasons in the past 12 months??No ?Alcohol Screen?Did you have a drink containing alcohol in the past year??No ?Points?0 ?Interpretation?Negative ???Miscellaneous:?Caffeine: yes, 1 cup occassionally. ?Children: yes. ?Exercise: yes, sports, ashley, walking. ?Marital status: . 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 * Medications:?TakingFerrous G luconate Lipitor Probiotic Centrum Silver Benefiber Dicyclomine HCl amLODIPine Besylate 2.5 MG Tablet 1 tablet Orally Once a day Ozempic CoQ-10 Lyrica , Notes to Pharmacist: x3 a dayaspirin , Notes to Pharmacist: babyFlomax Citalopram Hydrobromide 10 MG Tablet Orally Finasteride 5 MG Tablet 1 tablet Orally Once a day Isosorbide Mononitrate 120 MG 1 tablet once a day Lopressor 100 MG Tablet Orally Twice a day Norvasc 5 MG Tablet Orally Once a day Atorvastatin Calcium 80 MG Tablet 1 tablet Orally Once a day Metoprolol Succinate 50 MG Capsule ER 24 Hour Sprinkle 1 capsule Orally Once a day Extra Depth Orthopedic Shoes (1 Pair) with Customized Heat Molded Multidensity Innersoles (3 Pair) as directed Dx: NIDDM/Polyneuropathy (E11.42), Hammertoe Foot Deformity (M20.41,M20.42), Preulcerative Skin Lesion(s) (L85.1 Jardiance 25 MG Tablet 1 tablet Orally Once a day Pantoprazole Sodium 40 MG Tablet Delayed Release 1 tablet Orally Once a day Extra Depth Orthopedic Shoes (1 Pair) with Customized Heat Molded Multidensity Innersoles (3 Pair) as directed Dx: NIDDM/Polyneuropathy (E11.42), Hammertoe Foot Deformity (M20.41,M20.42), Preulcerative Skin Lesion(s) (L85.1 Taking Ferrous Gluconate Taking Lipitor Taking Probiotic Taking Centrum Silver Taking Benefiber Taking Dicyclomine HCl Taking amLODIPine Besylate 2.5 MG Tablet 1 tablet Orally Once a day Taking Ozempic Taking CoQ-10 Taking Lyrica , Notes to Pharmacist: x3 a dayTaking aspirin , Notes to Pharmacist: babyTaking Flomax Taking Citalopram Hydrobromide 10 MG Tablet Orally Taking Finasteride 5 MG Tablet 1 tablet Orally Once a day Taking Isosorbide Mononitrate 120 MG 1 tablet once a day Taking Lopressor 100 MG Tablet Orally Twice a day Taking Norvasc 5 MG Tablet Orally Once a day Taking Atorvastatin Calcium 80 MG Tablet 1 tablet Orally Once a day Taking Metoprolol Succinate 50 MG Capsule ER 24 Hour Sprinkle 1 capsule Orally Once a day Taking Extra Depth Orthopedic Shoes (1 Pair) with Customized Heat Molded Multidensity Innersoles (3 Pair) as directed Dx: NIDDM/Polyneuropathy (E11.42), Hammertoe Foot Deformity (M20.41,M20.42), Preulcerative Skin Lesion(s) (L85.1 Taking Jardiance 25 MG Tablet 1 tablet Orally Once a day Taking Pantoprazole Sodium 40 MG Tablet Delayed Release 1 tablet Orally Once a day Taking Extra Depth Orthopedic Shoes (1 Pair) with Customized Heat Molded Multidensity Innersoles (3 Pair) as directed Dx: NIDDM/Polyneuropathy (E11.42), Hammertoe Foot Deformity (M20.41,M20.42), Preulcerative Skin Lesion(s) (L85.1 Not-Taking/PRNPriLOSEC Amitriptyline HCl 25 MG Tablet 1 tablet at bedtime Orally Once a day Jose Luis , Notes to Pharmacist: 2 Scoops a dayDoxycycline Monohydrate 100 MG Tablet 1 tablet Orally Twice a day Cephalexin 500 MG Capsule 1 capsule Orally every 12 hrs Santyl 250 UNIT/GM Ointment 1 application to affected area Externally to Foot Ulcer Once a day to wound 0.5 cm x 0.5 cm x 0.3 cm left 5th toe Cephalexin 500 MG Capsule 1 capsule Orally every 12 hrs Keflex 500 MG Capsule 1 capsule Orally every 12 hrs Trulicity 3 MG/0.5ML Solution Pen-injector as directed Subcutaneous Ferrous Gluconate Lasix 40 MG Tablet Orally Extra Depth Orthopedic Shoes (1 Pair) with Customized Heat Molded Multidensity Innersoles (3 Pair) as directed Dx: NIDDM/Polyneuropathy (E11.42), Hammertoe Foot Deformity (M20.41,M20.42), Preulcerative Skin Lesion(s) (L85.1 Ibuprofen 800 MG Tablet 1 tablet Orally Three times a day traMADol HCl 50 MG Tablet 1 tablet as needed Orally Every 6 hours as need for pain Glucophage 500 MG Tablet 1 tab Orally once a day , Notes to Pharmacist: x2 500Physical Therapy . . . . 2-3x/week Benicar 20 MG Tablet Orally Ambrisentan 5 MG Tablet 1 tablet Orally Once a day hydroCHLOROthiazide 12.5 MG Capsule 1 capsule in the morning Orally Once a day Simvastatin 40 MG Tablet Orally Gabapentin Voltaren 1 % Gel as directed Transdermal Apply to affected area(s) four times a day Omeprazole Prilosec Medication List reviewed and reconciled with the patientNot-Taking/PRN PriLOSEC Not-Taking/PRN Amitriptyline HCl 25 MG Tablet 1 tablet at bedtime Orally Once a day Not-Taking/PRN Jose Luis , Notes to Pharmacist: 2 Scoops a dayNot-Taking/PRN Doxycycline Monohydrate 100 MG Tablet 1 tablet Orally Twice a day Not-Taking/PRN Cephalexin 500 MG Capsule 1 capsule Orally every 12 hrs Not- Taking/PRN Santyl 250 UNIT/GM Ointment 1 application to affected area Externally to Foot Ulcer Once a day to wound 0.5 cm x 0.5 cm x 0.3 cm left 5th toe Not-Taking/PRN Cephalexin 500 MG Capsule 1 capsule Orally every 12 hrs Not-Taking/PRN Keflex 500 MG Capsule 1 capsule Orally every 12 hrs Not-Taking/PRN Trulicity 3 MG/0.5ML Solution Pen- injector as directed Subcutaneous Not-Taking/PRN Ferrous Gluconate Not-Taking/PRN Lasix 40 MG Tablet Orally Not-Taking/PRN Extra Depth Orthopedic Shoes (1 Pair) with Customized Heat Molded Multidensity Innersoles (3 Pair) as directed Dx: NIDDM/Polyneuropathy (E11.42), Hammertoe Foot Deformity (M20.41,M20.42), Preulcerative Skin Lesion(s) (L85.1 Not-Taking/PRN Ibuprofen 800 MG Tablet 1 tablet Orally Three times a day Not-Taking/PRN traMADol HCl 50 MG Tablet 1 tablet as needed Orally Every 6 hours as need for pain Not-Taking/PRN Glucophage 500 MG Tablet 1 tab Orally once a day , Notes to Pharmacist: x2 500Not-Taking/PRN Physical Therapy . . . . 2-3x/week Not- Taking/PRN Benicar 20 MG Tablet Orally Not-Taking/PRN Ambrisentan 5 MG Tablet 1 tablet Orally Once a day Not-Taking/PRN hydroCHLOROthiazide 12.5 MG Capsule 1 capsule in the morning Orally Once a day Not-Taking/PRN Simvastatin 40 MG Tablet Orally Not-Taking/PRN Gabapentin Not-Taking/PRN Voltaren 1 % Gel as directed Transdermal Apply to affected area(s) four times a day Not-Taking/PRN Omeprazole Not- Taking/PRN Prilosec Medication List reviewed and reconciled with the patient * Allergies:?Demerol: itchyes[ Allergies Verified] Objective: * Vitals:?Ht: 5ft 8in, Wt: 173 , BMI: 26.3, Shoe size: 9.5, BS: 137, Ht-cm: 172.72 cm, Wt-k.47 kg. * ???Past Orders: ???Lab:HEMOGLOBIN A1C (GLYCO HEMOGLOBIN) (Order Date - 04/20/2024) (Collection Date & Time - 04/20/2024 10:35 AM) ? Value Reference Range ?TOTAL HEMOGLOBIN (HGBA1C) 6.0 * Examination: ???Ophthalmology Referral: ?DIABETES EYE EXAM?Dermatologic: ?ULCER:?LOCATION,dorsal 1st MPJ ?LEFT, SIZE, 20 10 X xx mm X 2mm, BASE, granular, RIM, hyperkeratotic, UNDERMINING, absent, TRACKING, Full thickness breakdown of skin, DRAINAGE, serosanguineous, mild, NECROTIC TISSUE, loosely-adherent, yellow slough, MALODOR, absent, CALOR, absent, ERYTHEMA, absent.?Neurological: ?SENSORY:? Neurological exam demonstrates, reduced light touch sensation, reduced sharp/dull pin prick discrimination , B/L, 5.07 monofilament test performed at plantar aspects of 5 varied sites per foot shows sensation, reduced , B/L.?Vascular: ?DP PULSES(B):?3/4, B/L.?PT PULSES(B):?3/4, B/L.?CAPILLARY FILL TIME:?immediate, all digits, B/L.?TROPHIC CONDITION-TEXTURE/ELASTICITY/TURGOR/HAIR GROWTH(B):?normal, B/L.?TEMPERTURE GRADIENT(C):?normal, warm to cool, proximal to distal, B/L, B/L.? 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 Plan: * Treatment: * Procedure Codes:? * Preventive Medicine:? ??Counseling:?Discussion:?-12: Office or other outpatient visit for the evaluation and management of an established patient, which required a medically appropriate history and/or examination and STRAIGHTFORWARD level of MEDICAL DECISION MAKING, 1 SELF-LIMITED OR MINOR PROBLEM, MINIMAL- NO AMOUNT/COMPLEXITY OF DATA TO BE REVIEWED/ANALYZED, AND MINIMAL RISK OF COMPLICATION/MORBIDITY. The visit on the day of the encounter encompassed interpreting the data and educating the patient as to the nature of their condition, treatment options available according to their individual PMH, meds, allergies, and overall health/living conditions, as well as any potential risks or complications that may occur from a failure to adhere to, and participate in, the recommended course of therapy. The discussion included a complete verbal, and/or written explanation of the examination results, any x-rays taken, the proposed diagnosis, and outline of the treatment plan. A schedule for future care needs was also explained. The patient verbalized an understanding of the instructions at this time and agreed to be an active participant in their treatment. If the patient should think of any questions or concerns after the visit, I have encouraged the patient to call the office.?Ulcer:?A detailed plan of care was reviewed with the patient. We emphasized the fact that the patient takes on an active participating role in the treatment process and emphasized to them that they are an included, valued, and important member of the wound healing team in order to reach an expedient successful outcome. The patient agreed to follow their medically recommended diet while increasing their protein intake if safely able to do so, maintain proper bodily hydaration, abide by weight-bearing restrictions at all times, quit all current smoking habits if any, and diligently follow any/all dressing change instructions. It was clearly made known to the patient that if they fail to do their part, they will likely extend their course of treatment as well as possibly increase their risk of adverse events including amputation. The patient was instructed on importance of proper wound care consisting of pressure reduction, and proper maintainance of a moist wound environment. The patient is to cleanse the wound with warm soapy water/peroxide/saline, or betadine BID based on product availability. The patient is to apply ( Neosporin, Polysporin, or Triple, ) Antibiotic to the wound and cover with a DSD as directed. The patient was instructed to change dressings according to orders, or PRN saturation, leaks. The patient was instructed to monitor and report any signs or symptoms of infection or any untoward reactions. Precautions Taken: Offloading/Pressure reduction via rest/ limited activity to essential to daily life only, cane/ crutches/ walker/ knee scooter/ wheel chair, shoe modification, accommodative padding, sharp debridement, and take/apply medication as directed. THE GOALS of wound debridement to remove devitilized tissue, decrease risk for infection, promote wound healing and prevent further complication were discussed/reviewed. Debridement frequency as indicated, The patient is to cont the local wound care as directed till completely healed.? * Follow Up:?as scheduled * Images: * Sign off status: Completed true * Provider:?Alpa Avelar DPM Date:?01/2024 Generated for Candace prieto/Naveed/Topher on:?08/03/2024 10:16 AM EST History and Physical Notes * HPI (History of Present Illness) Category Sub-Category Detail Notes Category Not es Skin problems Location: Top, Forefoot, Left Duration: several days Onset/Cause: unknown Examination Category Sub-Category Detail Notes Category Not es Neurological SENSORY: Neurological exa m demonstrates, reduced light touch sensation, reduced sharp/dull pin prick discrimination , B/L, 5.07 monofilament test performed at plantar aspects of 5 varied sites per foot shows sensation, reduced , B/L Dermatologic ULCER: LOCATION,dorsal 1st MPJ LEFT, SIZE, 20 10 X xx mm X 2mm, BASE, granular, RIM, hyperkeratotic, UNDERMINING, absent, TRACKING, Full thickness breakdown of skin, DRAINAGE, serosanguineous, mild, NECROTIC TISSUE, loosely-adherent, yellow slough, MALODOR, absent, CALOR, absent, ERYTHEMA, absent Ophthalmology Referral DIABETES EYE EXAM Procedu re Performed:: Yes ?Date of Exam Performed: 08/19/2023 Findings of Diabetic Eye Exam:: no retin opathy Vascular DP PULSES(B): 3/4, B/L PT PULSES(B): 3/4, B/L CAPILLARY FILL TIME: immediate, all digi ts, B/L TEMPERTURE GRADIENT(C): normal, warm to cool, proximal to distal, B/L, B/L TROPHIC CONDITION-TEXTURE/ELASTICITY/TURGOR/HAIR GROWTH(B): normal, B/L
--- OUTSIDE RECORDS SUMMARY | 2024-08-03 10:16 | XMS_ITS ---
Author Organization [facility] Address [address] [place] [address] Care Team Providers Care General Accounting Manager Name Role Phone Jalil Ryan MD Primary Care Provider Unavailab Alpa Johnson Unavailable [phone] REASON FOR VISIT Cephalexin (500 MG Capsule) Medications Medication SIG (Take, Route, Fr equency, Duration) Notes Start Date End Date Status Cephalexin 500 MG 1 capsule Orally lamonte ry 12 hrs for 7 days Active Encounters Encounter Location Date Provider Diagnosis [facility] [address] [place] [address] 07/31/2024 Alpa Avelar Cellulitis of toe of [...] Provider Name:Alpa phan, 08/07/2024 10:15:00 AM, [address] [place], [address], Progress Notes * Chris BRIGHT MDOB:[birth year] (78 yo M)Acc No.[id number]:07/31/2024 Patient:?Chris BRIGHT :1945???Age:78 Y???Sex:Male Address:[address] [place] [address], [place] [address] * Refills? Refill Cephalexin Capsule, 500 MG, Orally, 14 Capsule, 1 capsule, every 12 hrs, 7 days, Refills=0 * true * Date:? Generated for Candace prieto/Naveed/Harmeetitting on:?08/03/2024 10:15 AM EST
--- OUTSIDE RECORDS SUMMARY | 2024-08-03 10:16 | XMS_ITS | Patient Health Record ---
[facility] Address [address] [place] [address] Care Team Providers Care Travel Journalist Name Role Phone Jalil Ryan MD Primary Care Provider Unavailab Alpa Johnson Unavailable [phone] Randy Louis Unavailable [phone] Allergies Allergen (clinical drug ingredient) Drug/Non Drug Allergy documented on EMR Reaction Allergy Type Onset Date Status meperidine Demerol itch Drug Allergy Active Results Component Value Reference Range Notes HEMOGLOBIN A1C (GLYCOHEMOGLO BIN) Reviewed date:11/07/2023 01:21:24 PM Interpretation: Performing Lab: Notes/Report: HEMOGLOBIN A1C % (HH) 5.4 HEMOGLOBIN A1C (GLYCOHEMOGLO BIN) Reviewed date:04/03/2024 09:13:10 AM Interpretation: Performing Lab: Notes/Report: HEMOGLOBIN A1C % (HH) 6.2 HEMOGLOBIN A1C (GLYCOHEMOGLO BIN) Reviewed date:06/02/2024 10:36:26 AM Interpretation: Performing Lab: Notes/Report: TOTAL HEMOGLOBIN (HGBA1C) 6.0 Reason For Referral No Information Medications Medication SIG (Take, Route, Frequency, Duration) Notes Start Date End Date Status hydroCHLOROthiazide 12.5 MG 1 capsule in the morning Orally Once a day for 30 day(s) Not-Taking Ambrisentan 5 MG 1 tablet Orally Once a day for 30 day(s) Not-Taking Jardiance 25 MG 1 tablet Orally Once a day for 30 days Active Gabapentin Not-Takin g Extra Depth Orthopedic Shoes (1 Pair) with Customized Heat Molded Multidensity Innersoles (3 Pair) as directed Dx: NIDDM/Polyneuropath y (E11.42), Hammertoe Foot Deformity (M20.41,M20.42), Preulcerative Skin Lesion(s) (L85.1 10/12/2022 Active Simvastatin 40 MG Orally No t-Taking Lipitor Active Extra Depth Orthopedic Shoes (1 Pair) with Customized Heat Molded Multidensity Innersoles (3 Pair) as directed Dx: NIDDM/Polyneuropath y (E11.42), Hammertoe Foot Deformity (M20.41,M20.42), Preulcerative Skin Lesion(s) (L85.1 11/07/2023 Active Omeprazole Not-Takin g Ferrous Gluconate Ac tive Pantoprazole Sodium 40 MG 1 tablet Orall y Once a day Active Voltaren 1 % as directed Transdermal Apply to affected area(s) four times a day for 30 days 01/07/2019 Not-Taking Finasteride 5 MG 1 tablet Orally Once a day Active traMADol HCl 50 MG 1 tablet as needed Orally Every 6 hours as need for pain for 7 days 06/26/2022 Not-Taking Citalopram Hydrobromide 10 MG Orally Active Ibuprofen 800 MG 1 tablet Orally Three times a day for 7 days 06/26/2022 Not-Taking Lopressor 100 MG Orally Twice a day Active Physical Therapy . . . 2-3x/week for 3-4 weeks 07/17/2022 Not-Taking Isosorbide Mononitrate 120 1 tablet once a day Active Glucophage 500 MG 1 tab Orally once a day x2 500 Not-Taking Atorvastatin Calcium 80 MG 1 tablet Orally Once a day for 30 day(s) Active Norvasc 5 MG Orally Once a day Active Benicar 20 MG Orally Not-Ta laura Metoprolol Succinate 50 MG 1 capsule Orally Once a day for 30 day(s) Active Keflex 500 MG 1 capsule Orally every 12 hrs for 5 days 07/16/2023 Not-Taking Lyrica x3 a day Active Ferrous Gluconate No t-Taking Trulicity 3 MG/0.5ML as directed Subcutaneous Not-Taking Flomax Active Extra Depth Orthopedic Shoes (1 Pair) with Customized Heat Molded Multidensity Innersoles (3 Pair) as directed Dx: NIDDM/Polyneuropath y (E11.42), Hammertoe Foot Deformity (M20.41,M20.42), Preulcerative Skin Lesion(s) (L85.1 10/27/2019 Not-Taking aspirin baby Active Lasix 40 MG Orally Not-Taki ng Centrum Silver Activ e Questran 2 Scoops a day Not-Taking Probiotic Active Amitriptyline HCl 25 MG 1 tablet at bedt dayana Orally Once a day for 30 day(s) Not-Taking Prilosec Not-Taking Dicyclomine HCl Acti ve Benefiber Active Doxycycline Monohydrate 100 MG 1 tablet Orally Twice a day for 7 days 12/02/2023 Not-Taking PriLOSEC Not-Taking Cephalexin 500 MG 1 capsule Orally every 12 hrs for 7 days Not-Taking amLODIPine Besylate 2.5 MG 1 tablet Orally Once a day Active Santyl 250 UNIT/GM 1 application to affected area Externally to Foot Ulcer Once a day to wound 0.5 cm x 0.5 cm x 0.3 cm left 5th toe for 30 days 11/07/2023 Not-Taking CoQ-10 Active Ozempic Active Cephalexin 500 MG 1 capsule Orally every 12 hrs for 7 days Active Immunizations Vaccine Route Administration Date Status Comme nts COVID-19 Moderna Vaccine Unknown 05/12/2022 Administere d 10/21/20,11/21/20 06/10/21,11/23/21 Influenza Unknown 05/10/2015 Administered Influenza Unknown 04/28/2018 Administered Influenza Unknown 05/01/2019 Administered Influenza Unknown 03/29/2020 Administered Influenza Unknown 06/06/2023 Administered Pneumococcal Unknown 05/10/2015 Administered Social History Tobacco Use: Social History Observation [...] Are you an other tobacco user? No Problems Problem Type SNOMED Code ICD Code Onset Dates Problem Status W/U Status Risk Notes Problem Acquired hammer toe of right foot (5559230701466168) Other hammer toe(s) (acquired), right foot (M20.41) Active confirmed Problem Acquired hammer toe of left foot (5745457785258343) Other hammer toe(s) (acquired), left foot (M20.42) Active confirmed Problem Polyneuropathy due to type 2 diabetes mellitus (579830222) Type 2 diabetes mellitus with diabetic polyneuropathy (E11.42) Active confirmed Problem Polyneuropathy due to type 2 diabetes mellitus (510138690) Type 2 diabetes mellitus with diabetic polyneuropathy (E11.42) Active confirmed Problem [id number] Hallux valgus (acquired), left foot (M20.12) Active confirmed Problem 452391494759855 Hallux valgus (acquired), right foot (M20.11) Active confirmed Problem Acquired hammer toe of right foot (7440070802626778) Hammer toe of right foot (M20.41) Active confirmed Problem Acquired hammer toe of left foot (8847675899630828) Hammer toe of left foot (M20.42) Active confirmed Problem 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 (L97.521) Active confirmed Response to treatment Problem 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) Active confirmed Response to treatment Problem [id number] Neuropathic fo ot ulcer, left, limited to breakdown of skin (L97.521) Active confirmed Vital Signs Blood pressure diastolic 66 mm Hg 06/02/2024 Height 5ft 8in in 07/24/2024 Blood pressure systolic 117 mm Hg 06/02/2024 Weight 173 lbs 07/24/2024 BMI 26.3 kg/m2 07/24/2024 Encounters Encounter Location Date Provider Diagnosis [facility] [address] [place] [address] 11/07/2023 Alpa Avelar Other hammer toe(s) (acquired), right foot M20.41 ; Cellulitis of toe of left foot L03.032 ; Neuropathic ulcer of left foot with fat layer exposed L97.522 ; Other hammer toe(s) (acquired), left foot M20.42 ; Type 2 diabetes mellitus with diabetic polyneuropathy E11.42 and Tinea unguium B35.1 [facility] [address] [place] [address] 11/20/2023 Alpa Avelar Type 2 diabetes mellitus with diabetic polyneuropathy E11.42 ; Neuritis M79.2 ; Other hammer toe(s) (acquired), left foot M20.42 ; Cellulitis of left toe L03.032 and 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 L97.[address] [address] 11/29/2023 Alpa Perica Neuropathic ulcer of left foot with fat layer exposed L97.522 ; Cellulitis of toe of left foot L03.032 ; Other hammer toe(s) (acquired), left foot M20.42 and Type 2 diabetes mellitus with diabetic polyneuropathy E11.[address] [address] 12/05/2023 Alpa Perica Neuropathic ulcer of left foot with fat layer exposed L97.522 ; Cellulitis of toe of left foot L03.032 ; Other hammer toe(s) (acquired), left foot M20.42 and Type 2 diabetes mellitus with diabetic polyneuropathy E11.[address] [address] 12/11/2023 Alpa Perica Neuropathic ulcer of left foot with fat layer exposed L97.522 ; Cellulitis of toe of left foot L03.032 ; Other hammer toe(s) (acquired), left foot M20.42 and Type 2 diabetes mellitus with diabetic polyneuropathy E11.[address] [address] 12/24/2023 Alpa Perica Neuropathic ulcer of left foot with fat layer exposed L97.522 ; Cellulitis of toe of left foot L03.032 ; Other hammer toe(s) (acquired), left foot M20.42 and Type 2 diabetes mellitus with diabetic polyneuropathy E11.[address] [address] 01/14/2024 Alpa Perica Type 2 diabetes mellitus with diabetic polyneuropathy E11.42 and Tinea unguium B35.[address] [address] 04/03/2024 Alpa Perica Type 2 diabetes mellitus with diabetic polyneuropathy E11.42 ; Other hammer toe(s) (acquired), left foot M20.42 ; Tinea unguium B35.1 ; Other hammer toe(s) (acquired), right foot M20.41 ; 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 L97.521 ; Hallux valgus (acquired), left foot M20.12 and Hallux valgus (acquired), right foot M20.[address] [facility] [address] 06/02/2024 Alpa Avelar Other hammer toe(s) (acquired), left foot M20.42 ; Hallux valgus (acquired), left foot M20.12 ; Type 2 diabetes mellitus with diabetic polyneuropathy E11.42 ; Tinea unguium B35.1 ; Other hammer toe(s) (acquired), right foot M20.41 and Hallux valgus (acquired), right foot M20.[address] [address] 07/24/2024 Alpa Avelar Neurotrophic ulcer o f left foot limited to breakdown of skin L97.521 and Type 2 diabetes mellitus with diabetic polyneuropathy E11.[address] [address] 11/29/2023 Alpa Avelar [facility] [address] 01/15/2024 Alpa Avelar [facility] [address] 04/03/2024 Alpa Avelar [facility] [address] 07/02/2024 Alpa Avelar [facility] [address] 07/31/2024 Alpa Avelar Cellulitis of toe of left foot L03.[address] [address] 07/31/2024 Alpa Avelar Cellulitis of toe of left foot L03.032 Assessments Encounter Date Diagnosis (ICD Code) Assessment Notes Treatment Notes Treatment Clinical Notes Section Notes 11/07/2023 Other hammer toe(s) (acquired), right foot (ICD-10 - M20.41) Patient Educated with: DIABETIC FOOT CARE INSTRUCTIONS. pdf (DIABETIC FOOT CARE INSTRUCTIONS. pdf) 11/07/2023 Cellulitis of toe of left foot (ICD-10 - L03.032) 11/20/2023 Type 2 diabetes mellitus with diabetic polyneuropathy (ICD-10 - E11.42) 11/20/2023 Neuritis (ICD-10 - M79.2) 11/29/2023 Neuropathic ulcer of left foot with fat layer exposed (ICD-10 - L97.522) Patient Educated with: WOUND CARE INSTRUCTIONS. pdf (WOUND CARE INSTRUCTIONS. pdf) 12/11/2023 Cellulitis of toe of left foot (ICD-10 - L03.032) 12/11/2023 Neuropathic ulcer of left foot with fat layer exposed (ICD-10 - L97.522) Patient Educated with: WOUND CARE INSTRUCTIONS. pdf (WOUND CARE INSTRUCTIONS. pdf) 12/24/2023 Cellulitis of toe of left foot (ICD-10 - L03.032) 12/24/2023 Neuropathic ulcer of left foot with fat layer exposed (ICD-10 - L97.522) Patient Educated with: WOUND CARE INSTRUCTIONS. pdf (WOUND CARE INSTRUCTIONS. pdf) 01/14/2024 Type 2 diabetes mellitus with diabetic polyneuropathy (ICD-10 - E11.42) 01/14/2024 Tinea unguium (ICD-10 - B35.1) 04/03/2024 Other hammer toe(s) (acquired), left foot (ICD-10 - M20.42) 04/03/2024 Type 2 diabetes mellitus with diabetic polyneuropathy (ICD-10 - E11.42) 12/05/2023 Neuropathic ulcer of left foot with fat layer exposed (ICD-10 - L97.522) Patient Educated with: WOUND CARE INSTRUCTIONS. pdf (WOUND CARE INSTRUCTIONS. pdf) 06/02/2024 Other hammer toe(s) (acquired), left foot (ICD-10 - M20.42) 06/02/2024 Hallux valgus (acquired), left foot (ICD-10 - M20.12) 07/24/2024 Type 2 diabetes mellitus with diabetic polyneuropathy (ICD-10 - E11.42) 07/24/2024 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 pdf (WOUND CARE INSTRUCTIONS. pdf) 07/31/2024 Cellulitis of toe of left foot (ICD-10 - L03.032) 07/31/2024 Cellulitis of toe of left foot (ICD-10 - L03.032) 06/02/2024 Type 2 diabetes mellitus with diabetic polyneuropathy (ICD-10 - E11.42) 12/11/2023 Other hammer toe(s) (acquired), left foot (ICD-10 - M20.42) 04/03/2024 Tinea unguium (ICD-10 - B35.1) 12/24/2023 Other hammer toe(s) (acquired), left foot (ICD-10 - M20.42) 12/05/2023 Other hammer toe(s) (acquired), left foot (ICD-10 - M20.42) 11/29/2023 Cellulitis of toe of left foot (ICD-10 - L03.032) 12/05/2023 Cellulitis of toe of left foot (ICD-10 - L03.032) 11/29/2023 Other hammer toe(s) (acquired), left foot (ICD-10 - M20.42) 11/07/2023 Neuropathic ulcer of left foot with fat layer exposed (ICD-10 - L97.522) Patient Educated with: WOUND CARE INSTRUCTIONS. pdf (WOUND CARE INSTRUCTIONS. pdf) 11/20/2023 Other hammer toe(s) (acquired), left foot (ICD-10 - M20.42) 11/20/2023 Cellulitis of left toe (ICD-10 - L03.032) 11/07/2023 Other hammer toe(s) (acquired), left foot (ICD-10 - M20.42) 11/29/2023 Type 2 diabetes mellitus with diabetic polyneuropathy (ICD-10 - E11.42) 12/05/2023 Type 2 diabetes mellitus with diabetic polyneuropathy (ICD-10 - E11.42) 12/24/2023 Type 2 diabetes mellitus with diabetic polyneuropathy (ICD-10 - E11.42) 04/03/2024 Other hammer toe(s) (acquired), right foot (ICD-10 - M20.41) Patient Educated with: DIABETIC FOOT CARE INSTRUCTIONS. pdf (DIABETIC FOOT CARE INSTRUCTIONS. pdf) 12/11/2023 Type 2 diabetes mellitus with diabetic polyneuropathy (ICD-10 - E11.42) 06/02/2024 Tinea unguium (ICD-10 - B35.1) 04/03/2024 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 (ICD-10 - L97.521) Response to treatment Patient Educated with: WOUND CARE INSTRUCTIONS. pdf (WOUND CARE INSTRUCTIONS. pdf) 06/02/2024 Other hammer toe(s) (acquired), right foot (ICD-10 - M20.41) 11/20/2023 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 (ICD-10 - L97.521) 11/07/2023 Type 2 diabetes mellitus with diabetic polyneuropathy (ICD-10 - E11.42) 11/07/2023 Tinea unguium (ICD-10 - B35.1) 04/03/2024 Hallux valgus (acquired), left foot (ICD-10 - M20.12) 06/02/2024 Hallux valgus (acquired), right foot (ICD-10 - M20.11) 04/03/2024 Hallux valgus (acquired), right foot (ICD-10 - M20.11) 06/02/2024 Other Plan Of Treatment Pending Test Test Name Order Date X ray : Foot, left 3V 11/29/2023 [id number] NAIL, 6 OR MORE 10/12/2022 67651-PYEHRIL NAIL, 6 OR MORE 06/11/2018 [id number] NAIL, 6 OR MORE 09/17/2018 [id number] NAIL, 6 OR MORE 12/15/2018 [id number] NAIL, 1-5 02/06/2016 91174-Igkf Destruction, 1-14 05/19/2018 76115-Tcfz Destruction, 1-14 06/11/2018 51716-GQIP SKIN LESIONS, OVER 4 10/12/19 23 26706-LJUE SKIN LESIONS, 2 TO 4 12/16/19 19 66767-PKEG SKIN LESIONS, 2 TO 4 06/11/20 18 02373-VQAN SKIN LESIONS, 2 TO 4 02/06/20 16 98997-SZML SKIN LESIONS, 2 TO 4 09/17/19 19 [id number]-UJQCXGRR DYSTROPHIC NAILS ANY # 72356-EBCNONOD OF HEMATOMA/FLUID 023 62376,D0128-EBH TENDON SHEATH/LIGAMENT 0 09/17/2018 83084,N3269-XQQ TENDON SHEATH/LIGAMENT 0 12/15/2018 Next Appt Details Provider Name:Alpa phan, 08/07/2024 10:15:00 AM, [address] [place], [address], Insurance Providers Payer Name Payer Address Payer Phone Subscriber Number Group Number Insured Name Patient Relationship to Insured Coverage Start Date Coverage End Date Medicare National Govt [employer] [address] [place] [address] [phone] [id number] Chris Dawson Self - patient is the insured [employer] [address] [place] [id number] [phone] [id number] Chris Dawson Self - patient is the insured Medical (General) History Medical History History ICD Code Arthritis Back,Hip,and Knee pain Cancer - bladder DIABETIC Heart disease High blood pressure Neuropathy Measles Mumps Chicken pox Cholesterol Reflux Surgical History Surgery Date(Month/Year) Stent gall bladder hernias cardiac catheterization 05/07/2019 knee surgery- tore ACL and left Meniscus repair 02/08/20 Cataract-Right 05/06/2020 Cataract surgery left eye 05/20/20 checked the pressure in the right side o f heart 11/2020 Rhys hammer toe 07/2022 Retina surgery 05/09/2023 Hospitalization History Reason Date(Month/Year) [facility]- wound infection 0 02/27/24 [facility]/ Dehydration 07/19/22
--- OUTSIDE RECORDS SUMMARY | 2024-08-03 10:17 | XMS_ITS ---
Author Organization [facility] Address [address] [facility] [address] [place] [address] Care Team Providers Care Engineering Assistant Name Role Phone Connor CARDENAS, Jalil Primary Care Provider Unavailab see Frausto Jr, Zurdo Martinez [phone] REASON FOR VISIT diarrhea Encounters Encounter Location Date Provider Diagnosis [facility] [address] [place] [address] [place] [address] 08/07/2023 Zurdo Frausto Jr PLAN OF TREATMENT Next Appt Details Provider Name:Zurdo milian Jr, 11/23/2024 09:00:00 AM, [address] [place] [address], [address], [place], [address],
--- OUTSIDE RECORDS SUMMARY | 2024-08-03 10:17 | XMS_ITS | Patient Health Record ---
Author Organization [facility] Address [address] [place] [address] Care Team Providers Care Weight Yardage Checker Name Role Phone Connor CARDENAS, Jalil Primary Care Provider Zurdo Damon Jr Unavailable ALLERGIES Allergen (clinical drug ingredient) Drug/Non Drug Allergy documented on EMR Reaction Allergy Type Onset Date Status meperidine Demerol Unknown Drug Allergy Active REASON FOR REFERRAL No Information MEDICATIONS Medication SIG (Take, Route, Frequency, Duration) Notes Start Date End Date Status CoQ-10 100 MG as directed Orally Active Probiotic - as directed Orally Active Centrum Silver 50+Men - as directed Orally Active Finasteride 5 MG 1 tablet Orally Once a day for 30 day(s) Active Ferrous Gluconate 324 (38 Fe) MG 1 tablet with water or juice between meals Orally Once a day for 30 day(s) Active Lyrica 75 MG 1 capsule Orally Twi ce a day Active Isosorbide Mononitrate ER 120 MG 1 tablet in the morning Orally Once a day for 30 day(s) Active Benefiber Drink Mix - as directed Orally Active Lipitor 80 MG 1 tablet Orally Once a day for 30 day(s) Active Ozempic (1 MG/DOSE) 4 MG/3ML as directed Subcutaneous Act noel Citalopram Hydrobromide 10 MG/5ML 5 mL Orally Once a day for 30 day(s) Active Norvasc 5 MG 1 tablet Orally Once a day for 30 day(s) Active Jardiance 10 MG 1 tablet Orally Once a day for 30 day(s) Active Questran 4 GM 1 packet mixed with water or non-carbonated drink Orally Once a day for 30 day(s) Active Benicar 20 MG 1 tablet Orally Once a day for 30 day(s) Active Lopressor 100 MG 1 tablet with food O rally Twice a day for 30 day(s) Active Aspirin 81 81 MG 1 tablet Orally Once a day for 30 day(s) Active IMMUNIZATIONS Vaccine Route Administration Date Status Comme nts Influenza Unknown 07/19/2022 Administered Influenza Unknown 05/07/2023 Administered SOCIAL HISTORY Tobacco Use: Social History Observation Description Date Details (start date - stop date) Never Smoker NA - NA Sex Assigned At : Social History Observation Description Sex Assigned At Unknown Tobacco Use/Smoking Question Answer Notes Patient is a nonsmoker Alcohol Screen Question Answer Notes Did you have a drink containing alcohol in the p ast year? No Points 0 Interpretation Negative PROBLEMS Problem Type ICD Code Onset Dates Problem Status W/U Status Risk SNOMED Code Notes Problem Diarrhea, unspecified type (R19.7) Active confirmed 15354306 Problem Incontinence of feces, unspecified fecal incontinence type (R15.9) Active confirmed Incontinence of feces (37893168) Problem Gastroesophageal reflux disease without esophagitis (K21.9) Active confirmed 500254818 VITAL SIGNS Temperature 97.1 degrees Fahrenheit 10/30/2023 Blood pressure diastolic 00 mm Hg 10/30/2023 Height 68 in 10/30/2023 Blood pressure systolic 000 mm Hg 10/30/2023 Weight 175 lbs 10/30/2023 BMI 26.61 kg/m2 10/30/2023 Encounters Encounter Location Date Provider Diagnosis [facility] [address] [place] [address] 08/07/2023 Zurdo Frausto Jr [facility] [address] [place] [address] 10/30/2023 Zurdo Frausto Jr Gastroesophageal reflux disease without esophagitis K21.9 ; Incontinence of feces, unspecified fecal incontinence type R15.9 and Diarrhea, unspecified type R19.7 [facility] [address] [place] [address] 07/29/2024 Zurdo Frausto Jr ASSESSMENTS Encounter Date Diagnosis Assessment Notes Treatment Notes Treatment Clinical Notes 10/30/2023 Gastroesophageal ref lux disease without esophagitis (ICD-10 - K21.9) COVID-19 vaccines - what to expect material was printed 10/30/2023 Incontinence of fece s, unspecified fecal incontinence type (ICD-10 - R15.9) 10/30/2023 Diarrhea, unspecifie d type (ICD-10 - R19.7) PLAN OF TREATMENT Pending Test Test Name Order Date STOOL WBC 11/20/2022 OVA & PARASITES (O&P) 11/20/2022 Next Appt Details Provider Name:Zurdo Sonali milian Jr, 11/23/2024 09:00:00 AM, [address] [facility], [address], [place], [address], Insurance Providers Payer Name Payer Address Payer Phone Subscriber Number Group Number Insured Name Patient Relationship to Insured Coverage Start Date Coverage End Date MEDICARE OF [place] [address] [place], [place] [id number] [phone] [id number] MARIA LUZ CONNOR Self - patient is the insured [employer] [address] [place] [id number] MARIA LZU CONNOR Self - patient is the insured MEDICAL (GENERAL) HISTORY Medical History History ICD Code Diabetes mellitus type 2 Chronic kidney disease stage II pulmonary hypertension Systemic hypertension bladder cancer Coronary artery disease with stent place ment JACQUELIN/CPAP MGUS Hyperlipidemia EGD/colonoscopy 11/06, gastri c nodules, normal duodenal biopsies, gastric biopsy showed fundic gland polyp colonoscopy 2 tubular adenomas and normal random biopsies Surgical History Surgery Date(Month/Year) prostatectomy 10 years ago Multiple hernia repairs cholecystectomy Cataract repairs
--- OUTSIDE RECORDS SUMMARY | 2024-08-03 10:17 | XMS_ITS ---
Author Organization [facility] Address [address] [place] [id number] Care Team Providers Care Pattern Fitter Name Role Phone Connor CARDENAS, Jalil Primary Care Provider UnavailZurdo Deras Jr Unavailable ALLERGIES Allergen (clinical drug ingredient) Drug/Non Drug Allergy documented on EMR Reaction Allergy Type Onset Date Status meperidine Demerol Unknown Drug Allergy Active REASON FOR VISIT Patient presents today for DIARRHEA MEDICATIONS Medication SIG (Take, Route, Frequency, Duration) Notes Start Date End Date Status Aspirin 81 81 MG 1 tablet Orally [...] Twice a day for 30 day(s) Active Finasteride 5 MG 1 tablet Orally Once a day for 30 day(s) Active Lyrica 75 MG 1 capsule Orally Twi ce a day Active Isosorbide Mononitrate ER 120 MG 1 tablet in the morning Orally Once a day for 30 day(s) Active Lipitor 80 MG 1 tablet Orally Once a day for 30 day(s) Active Citalopram Hydrobromide 10 MG/5ML 5 mL Orally Once a day for 30 day(s) Active CoQ-10 100 MG as directed Orally Active Probiotic - as directed Orally Active Centrum Silver 50+Men - as directed Orally Active Ferrous Gluconate 324 (38 Fe) MG 1 tablet with water or juice between meals Orally Once a day for 30 day(s) Active Benefiber Drink Mix - as directed Orally Active Ozempic (1 MG/DOSE) 4 MG/3ML as directed Subcutaneous Act noel Jardiance 10 MG 1 tablet Orally Once a day for 30 day(s) Active SOCIAL HISTORY Tobacco Use: Social History Observation Description Date Details (start date - stop date) Never Smoker NA - NA Sex Assigned At : Social History Observation Description Sex Assigned At Unknown Tobacco Use/Smoking Question Answer Notes Patient is a nonsmoker Alcohol Screen Question Answer Notes Did you have a drink containing alcohol in the p ast year? No Points 0 Interpretation Negative VITAL SIGNS BMI 26.61 kg/m2 10/30/2023 Blood pressure systolic 000 mm Hg 10/30/19 24 Blood pressure diastolic 00 mm Hg 024 Height 68 in 10/30/2023 Temperature 97.1 degrees Fahrenheit 10/30/19 24 Weight 175 lbs 10/30/2023 Encounters Encounter Location Date Provider Diagnosis [facility] [address] [place] [address] 10/30/2023 Zurdo Frausto Jr Gastroesophageal reflux disease without esophagitis K21.9 ; Incontinence of feces, unspecified fecal incontinence type R15.9 and Diarrhea, unspecified type R19.7 ASSESSMENTS Encounter Date Diagnosis Assessment Notes Treatment Notes Treatment Clinical Notes 10/30/2023 Gastroesophageal ref lux disease without esophagitis (ICD-10 - K21.9) COVID-19 vaccines - what to expect material was printed 10/30/2023 Incontinence of fece s, unspecified fecal incontinence type (ICD-10 - R15.9) 10/30/2023 Diarrhea, unspecifie d type (ICD-10 - R19.7) PLAN OF TREATMENT Treatment Notes Assessment Notes Gastroesophageal reflux dise ase without esophagitis COVID-19 vaccines - what to expect material was printed Next Appt Details Follow Up: 1 Year, Reason: Provider Name:Zurdo milian Jr, 11/23/2024 09:00:00 AM, [address] [place] [address] Drive, [address], [place], [address],
--- NOTE | 2024-08-03 10:25 | HO.NEPHOV ---
Vital Signs 08/03/24 10:26 Height 5 ft 8 in Weight 180 lb BMI 27.4 BP 118/54 L Blood Pressure Location Lt brachial Position Sitting Pulse 80 Pulse Source Pulse Oximeter Pulse Oximetry (%) 96 Oxygen Delivery Method Room Air Intake Visit Reasons: CKD/ Conf [employer] Advisor Required: No Accompanied by: Spouse Allergies demerol Allergy (Unknown, Uncoded 04/20/20 00:00) itching From DEMEROL Adverse Reaction (Mild, Uncoded 05/05/20 15:39) ITCHINESS Medication List - Last Reconciled 08/03/24 by Jovani Oneill MD amitriptyline 25 mg PO BEDTIME amlodipine (Norvasc) 5 mg PO DAILY aspirin 81 mg PO DAILY atorvastatin 80 mg PO DAILY citalopram 10 mg PO DAILY coenzyme Q10 (H2Q CoQ10) 100 mg PO cyclobenzaprine 10 mg PO TID PRN dicyclomine 10 mg PO DAILY empagliflozin (Jardiance) 10 mg PO DAILY ferrous sulfate 325 mg PO DAILY finasteride 5 mg PO DAILY furosemide 40 mg PO DAILY isosorbide mononitrate ER 120 mg PO DAILY metoprolol tartrate 100 mg PO BID lxkqyxkudegx-wowzlwpr-shecwc 1 tab PO DAILY nitroglycerin mg sublingual pantoprazole 40 mg PO DAILY pregabalin 75 mg PO TID semaglutide (Ozempic) 2 mg subcut QWEEK tamsulosin (Flomax) 0.4 mg PO DAILY HPI Comments Details: Mariajose is a 78-year-old man with history of longstanding hypertension and diabetes mellitus complicated by coronary disease and mild CKD. He has pulmonary hypertension as well. He developed diarrhea with metformin which has improved. From a renal standpoint he is doing reasonably well. Continues have shortness of breath on exertion. He is being evaluated by Cardiology and Pulmonary. He is waiting for a 6 minutes stress test. 10/30: Now on Ozempic- self prescribed Also on Jardiance ;Diarrhea is better ;A1C is 5.8% 04/07/24; Off Benicar; Home BP is OK ; No further diarrhea ;No change in resp status ;c/o leg pain / ache when he walks 08/03/24 On ozempic ; No weight loss yet PFSH Family History Father Heart attack Diabetes Mother Heart attack Lung cancer Physical Exam Vital Signs: Last Vital Signs Pulse 80 08/03/24 10:26 BP 118/54 L 08/03/24 10:26 Pulse Ox 96 08/03/24 10:26 Oxygen Delivery Method Room Air 08/03/24 10:26 BMI result Body Mass Index 27.4 Comfortable Neck supple no JVD. Lungs entry equal no rales. Heart S1-S2 heard no gallop or rub. Abdomen soft nontender. Neuro alert awake oriented. No asterixis. Extremities no edema. Results Reviewed Nephrology Results: No Data to Display Assessment & Plan Assessment & Plan (1) CKD (chronic kidney disease) stage 2, GFR 60-89 ml/min: Code(s): N18.2 - Chronic kidney disease, stage 2 (mild) Category: Medical (2) HTN (hypertension): Code(s): I10 - Essential (primary) hypertension Category: Medical (3) Diabetes insipidus, neurohypophyseal: Code(s): 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 1. Hypertension. Blood pressure is acceptable 2. Nonischemic cardiomyopathy. Follow-up with [facility]. 3. Chronic kidney disease stage 3. Serum creatinine stable at 1.54 Fluid status is optimal. Next item no indication for a diuretic at this time. Will benefit from SGLT2 inhibitor. Continue to avoid nephrotoxic agents. 4. Polycythemia Hemoglobin is 17.2. ; Has follow-up appointment with Hematology 5. Diabetes mellitus. Recent A1C 6.7% ;Ozempic and the dose is being titrated. 6. Diarrhea has improved All his questions were answered. Coding Level of Care Code Est Pt Level 4 (80917) Diagnoses CKD (chronic kidney disease) stage 2, GFR 60-89 ml/min N18.2 HTN (hypertension) I10 Diabetes insipidus, neurohypophyseal E23.2 Pulmonary fibrosis J84.10 Obesity E66.9
[2024-08-03 10:26] VITALS: BP 118/54; PULSE 80; O2SAT 96; BMI 27.4
== END 2024-08-03 10:46 | disposition home or self-care (01) ==
PROVIDERS: PCP Family Medicine; Visit Provider Internal Medicine Hypertension Specialist
DX: I12.9 Hypertensive chronic kidney disease with stage 1 through stage 4 chronic kidney disease, or unspecified chronic kidney disease (principal); N18.2 Chronic kidney disease, stage 2 (mild); E23.2 Diabetes insipidus; J84.10 Pulmonary fibrosis, unspecified; E66.9 Obesity, unspecified
CPT/HCPCS: 99214

== ENCOUNTER → 2024-08-03 10:13 | Outpatient (BNVA) | payer MEDICARE, OTHER, SELFPAY | PROVIDERS: PCP Family Medicine; Visit Provider Internal Medicine Hypertension Specialist | DX: I12.9 Hypertensive chronic kidney disease with stage 1 through stage 4 chronic kidney disease, or unspecified chronic kidney disease (principal); E11.22 Type 2 diabetes mellitus with diabetic chronic kidney disease; N18.30 Chronic kidney disease, stage 3 unspecified; E23.2 Diabetes insipidus; E66.9 Obesity, unspecified; J84.10 Pulmonary fibrosis, unspecified | CPT/HCPCS: 99212 ==

== ENCOUNTER 2024-08-11 13:34 | Outpatient (REF) | payer MEDICARE, OTHER, SELFPAY ==
--- NOTE | ~2024-08-11 | US_ITS ---
EXAMINATION: US EXTRACRANIAL CAROTID DUPLEX, BILATERAL CLINICAL INFORMATION: Dizziness COMPARISON: None available. TECHNIQUE: Real-time ultrasound and Doppler techniques (integrating B-mode 2-D vascular images, Doppler spectral analysis and color-flow Doppler imaging) were utilized to interrogate the extracranial carotid arteries, the vertebral arteries and proximal subclavian arteries bilaterally. The degree of stenosis is determined by criteria similar to NASCET. FINDINGS: Right Side: 1. There is no significant atherosclerotic plaque seen in the bifurcation/proximal ICA region. 2. The common carotid artery PSV proximally is 93 cm/s and distally 69 cm/s. 3. The proximal internal carotid artery velocities are 49.0 cm/s systolic and 13.7 cm/s diastolic. 4. The proximal external carotid artery PSV is 93 cm/s. 5. The vertebral artery shows antegrade flow. 6. The subclavian artery waveforms are normal. Left Side: 1. There is no significant atherosclerotic plaque seen in the bifurcation/proximal ICA region. 2. The common carotid artery PSV proximally is 92 cm/s and distally 88 cm/s. 3. The proximal internal carotid artery velocities are 77.4 cm/s systolic and 17.6 cm/s diastolic. 4. The proximal external carotid artery PSV is 95 cm/s. 5. The vertebral artery shows antegrade flow. 6. The subclavian artery waveforms are normal. US/US carotid duplex BI IMPRESSION: 1. RIGHT: Normal right internal carotid artery without atherosclerotic plaque or hemodynamically significant stenosis. 2. LEFT: Normal left internal carotid artery without atherosclerotic plaque or hemodynamically significant stenosis. Electronically signed by: Doc Radford MD 08/11/2024 02:45 PM [facility]
--- OUTSIDE RECORDS SUMMARY | 2024-08-11 13:38 | XMS_ITS ---
Author Organization [facility] Address [address] [place] [address] Care Team Providers Care Dipper Operator Name Role Phone Connor CARDENAS, Jalil Primary Care Provider UnavailAlpa Carreon Unavailable [phone] Allergies Allergen (clinical drug ingredient) Drug/Non Drug Allergy documented on EMR Reaction Allergy Type Onset Date Status meperidine Demerol itch Drug Allergy Active REASON FOR VISIT Open sore, At Risk Footcare Medications Medication SIG (Take, Route, Frequency, Duration) Notes Start Date End Date Status Omeprazole Not-Takin g Prilosec Not-Taking Simvastatin 40 MG Orally No t-Taking Gabapentin Not-Takin g Voltaren 1 % as directed Transdermal Apply to affected area(s) four times a day for 30 days 01/07/2019 Not-Taking Glucophage 500 MG 1 tab Orally once a day x2 500 Not-Taking hydroCHLOROthiazide 12.5 MG 1 capsule in the morning Orally Once a day for 30 day(s) Not-Taking Physical Therapy . . . 2-3x/week for 3-4 weeks 07/17/2022 Not-Taking Benicar 20 MG Orally Not-Ta laura Ambrisentan 5 MG 1 tablet Orally Once a day for 30 day(s) Not-Taking Extra Depth Orthopedic Shoes (1 Pair) with Customized Heat Molded Multidensity Innersoles (3 Pair) as directed Dx: NIDDM/Polyneuropath y (E11.42), Hammertoe Foot Deformity (M20.41,M20.42), Preulcerative Skin Lesion(s) (L85.1 10/27/2019 Not-Taking Ibuprofen 800 MG 1 tablet Orally Three times a day for 7 days 06/26/2022 Not-Taking traMADol HCl 50 MG 1 tablet as needed Orally Every 6 hours as need for pain for 7 days 06/26/2022 Not-Taking Ferrous Gluconate No t-Taking Lasix 40 MG Orally Not-Taki ng Keflex 500 MG 1 capsule Orally every 12 hrs for 5 days 07/16/2023 Not-Taking Trulicity 3 MG/0.5ML as directed Subcutaneous Not-Taking Santyl 250 UNIT/GM 1 application to affected area Externally to Foot Ulcer Once a day to wound 0.5 cm x 0.5 cm x 0.3 cm left 5th toe for 30 days 11/07/2023 Not-Taking Cephalexin 500 MG 1 capsule Orally every 12 hrs for 7 days Not-Taking Doxycycline Monohydrate 100 MG 1 tablet Orally Twice a day for 7 days 12/02/2023 Not-Taking Cephalexin 500 MG 1 capsule Orally every 12 hrs for 7 days Active PriLOSEC Not-Taking Amitriptyline HCl 25 MG 1 tablet at bedt dayana Orally Once a day for 30 day(s) Not-Taking Questran 2 Scoops a day Not-Taking Extra Depth Orthopedic Shoes (1 Pair) with Customized Heat Molded Multidensity Innersoles (3 Pair) as directed Dx: NIDDM/Polyneuropath y (E11.42), Hammertoe Foot Deformity (M20.41,M20.42), Preulcerative Skin Lesion(s) (L85.1 11/07/2023 Active Extra Depth Orthopedic Shoes (1 Pair) with Customized Heat Molded Multidensity Innersoles (3 Pair) as directed Dx: NIDDM/Polyneuropath y (E11.42), Hammertoe Foot Deformity (M20.41,M20.42), Preulcerative Skin Lesion(s) (L85.1 10/12/2022 Active Jardiance 25 MG 1 tablet Orally Once a day for 30 days Active Pantoprazole Sodium 40 MG 1 tablet Orall y Once a day Active Metoprolol Succinate 50 MG 1 capsule Orally Once a day for 30 day(s) Active Atorvastatin Calcium 80 MG 1 tablet Orally Once a day for 30 day(s) Active Citalopram Hydrobromide 10 MG Orally Active Finasteride 5 MG 1 tablet Orally Once a day Active Isosorbide Mononitrate 120 1 tablet once a day Active Lopressor 100 MG Orally Twice a day Active Norvasc 5 MG Orally Once a day Active CoQ-10 Active Lyrica x3 a day Active aspirin baby Active Flomax Active Ozempic Active Probiotic Active Centrum Silver Activ e Benefiber Active Dicyclomine HCl Acti ve amLODIPine Besylate 2.5 MG 1 tablet Orally Once a day Active Lipitor Active Ferrous Gluconate Ac tive Social History Tobacco Use: Social History Observation Description Date Details (start date - stop date) Never Smoker NA - NA Tobacco Use/Smoking Question Answer Notes Are you a: nonsmoker Additional Findings: Tobacco Non-User Current no n-smoker Tobacco use other than smoking: Question Answer Notes Are you an other tobacco user? No Problems Problem Type SNOMED Code ICD Code Onset Dates Problem Status W/U Status Risk Notes Problem Essential hypertension (16422174) Essential hypertension (I10) Active confirmed Vital Signs Height 5ft 8in in 08/07/2024 Weight 175 lbs 08/07/2024 BMI 26.61 kg/m2 08/07/2024 Blood pressure systolic 117 mm Hg 08/07/20 24 Blood pressure diastolic 57 mm Hg 024 Encounters Encounter Location Date Provider Diagnosis [facility] [address] [address] 08/07/2024 Alpa Rosio Neurotrophic ulcer o f left foot limited to breakdown of skin L97.521 ; Type 2 diabetes mellitus with diabetic polyneuropathy E11.42 ; Tinea unguium B35.1 ; Other hammer toe(s) (acquired), left foot M20.42 and Hammer toe of right foot M20.41 Assessments Encounter Date Diagnosis (ICD Code) Assessment Notes Treatment Notes Treatment Clinical Notes Section Notes 08/07/2024 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 pdf (WOUND CARE INSTRUCTIONS. pdf) 08/07/2024 Type 2 diabetes mellitus with diabetic polyneuropathy (ICD-10 - E11.42) 08/07/2024 Tinea unguium (ICD-10 - B35.1) 08/07/2024 Other hammer toe(s) (acquired), left foot (ICD-10 - M20.42) 08/07/2024 Hammer toe of right foot (ICD-10 - M20.41) Plan Of Treatment Treatment Notes Assessment Notes Neurotrophic ulcer of left f oot limited to breakdown of skin Patient Educated with: WOUND CARE INSTRUCTIONS.pdf (WOUND CARE INSTRUCTIONS.pdf) Next Appt Details Follow Up: 3 Months, Reason: Provider Name:Alpa phan, 11/03/2024 11:15:00 AM, [address] [place] [address], [phone], Procedure Notes * Category Sub-Category Detail Notes Debride Nail 6-10 Nail debridement Due to the cl inical pathology outlined in the exam findings, performance of this nail treatment is medically necessary as its management by an unskilled/untrained nonprofessional would put this patients foot and overall health at risk. Therefore, debridement to affected nail(s), as described in exam ( TA, T1, T2, T3, T4, T5, T6, T7, T8, T9, ), was performed exclusively by the physician of record to reduce/remove overall nail length, girth, thickness, subungual debris, and necrotic tissue, by manual and/or electrical means through the use of a nail nipper and/or dremel-type meat grinder, to a more viable healthy nail plate or bed tissue 6-10 nails in total. Silver nitrate was used for any petechial bleeding as necessary. Definitive antifungal treatment options, both pharmaceutical and surgical, have been reviewed and discussed with the patient. The patient solely prefers the use of intermittent/as needed professional debridement services for their nail condition and understands the need for additional periodic treatments to maintain effectiveness in symptomatic relief - 34896 Keratoma Treatment Parring or Cutting o f Benign Hyperkeratotic Lesion(s) (-57) More than 4 Lesions - Due to the at risk nature of the patients medical condition as documented in the exam findings, performance of this keratoderma treatment is medically necessary as its management by an unskilled/untrained nonprofessional would put this patients foot and overall health at risk. Therefore, the benign hyperkeratotic lesions, ( 8) in total, locations as stated and described in the exam ( TA , T1 , T4 , T5 , SUB MTH (s) , 1 , B/L, Plantar Heel(s), B/L), were pared, and/or cut utilizing a sterile 15 blade, tissue nippers, and/or power dremel instrumentation by the physician of record - 09855 Progress Notes * Chris MADRIGAL MDOB:[birth year] (78 yo M)Acc No.[id number]:08/07/2024 Progress Note Patient:?Chris MADRIGAL Provider:?Alpa Avelar DPM :1945???Age:78 Y???Sex:Male Virgil e:08/07/2024 Address:[address] [place] [address], [facility] Pcp:Jalil Ryan MD Subjective: * Chief Complaints: * ???Open soreAt Risk Footcare * HPI: ???Skin problems:?Location:?Top, Forefoot, Left.?Duration:?a few weeks.?Onset/Cause:?unknown.?Treatments:?Keflex, abx oint.?At Risk footcare:?Pt States Last PCP Visit:?Date?08/04/2024 * ROS:?General/Constitutional:?Nausea?denies.?Vomiting?denies.?Hunger Thirst?denies.?Loss appetite?denies.?Chills?denies.?Fatigue?denies.?Fever?denies.?Night Sweats?denies.?Unexplained weight loss?denies.?Unexplained [...] 05/09/2023 * Hospitalization/Major Diagno stic Procedure:?[facility]/ Dehydration 07/19/22[facility]- wound infection 02/27/24 * Family History:?Mother: dece ased, heart attack, diagnosed with Other malignant neoplasm of unspecified site, Unspecified essential hypertension, Unspecified heart disease.?Father: , heart attack, diagnosed with Diabetic - NIDDM, Unspecified essential hypertension, Unspecified heart disease.?Spouse: alive.? * Social History:?Tobacco Use:?Tobacco Use/Smoking?Are you a:?nonsmoker ?Additional Findings: Tobacco Non-User?Current non-smoker ?Tobacco use other than smoking?Are you an other tobacco user??No * Medications:?TakingFerrous G luconate Lipitor Probiotic Centrum Silver Benefiber Dicyclomine HCl amLODIPine Besylate 2.5 MG Tablet 1 tablet Orally Once a day Ozempic CoQ-10 Lyrica , Notes to Pharmacist: x3 a j carlos , Notes to Pharmacist: babyFlomax Citalopram Hydrobromide [...] Foot Deformity (M20.41,M20.42), Preulcerative Skin Lesion(s) (L85.1 Cephalexin 500 MG Capsule 1 capsule Orally every 12 hrs Taking Ferrous Gluconate Taking Lipitor Taking Probiotic [...] Deformity (M20.41,M20.42), Preulcerative Skin Lesion(s) (L85.1 Taking Cephalexin 500 MG Capsule 1 capsule Orally every 12 hrs Not-Taking/PRNPriLOSEC Amitriptyline HCl 25 MG Tablet 1 tablet at bedtime Orally Once a day Jose Luis , Notes to Pharmacist: 2 Scoops a dayDoxycycline Monohydrate 100 MG Tablet 1 tablet Orally Twice a day Santyl 250 UNIT/GM Ointment 1 application to [...] 1 tablet Orally Twice a day Not-Taking/PRN Santyl 250 UNIT/GM Ointment 1 application to affected area Externally to Foot Ulcer Once a day to wound 0.5 cm x 0.5 cm x 0.3 cm left 5th toe Not-Taking/PRN Cephalexin 500 MG Capsule 1 capsule Orally every 12 hrs Not- Taking/PRN Keflex 500 MG Capsule 1 capsule Orally every 12 hrs Not-Taking/PRN Trulicity 3 MG/0.5ML Solution Pen-injector as directed Subcutaneous Not-Taking/PRN Ferrous Gluconate Not-Taking/PRN [...] Physical Therapy . . . . 2-3x/week Not-Taking/PRN Benicar 20 MG Tablet Orally Not-Taking/PRN Ambrisentan 5 MG Tablet 1 tablet Orally Once a day Not-Taking/PRN hydroCHLOROthiazide 12.5 MG Capsule 1 capsule in the morning Orally Once a day Not-Taking/PRN Simvastatin 40 MG Tablet Orally Not-Taking/PRN Gabapentin Not-Taking/PRN Voltaren 1 % Gel as directed Transdermal Apply to affected area(s) four times a day Not-Taking/PRN Omeprazole Not-Taking/PRN Prilosec Medication List reviewed and reconciled with the patient * Allergies:?Demerol: itchyes[ Allergies Verified] Objective: * Vitals:?Ht: 5ft 8in, Wt: 175 , BMI: 26.61, Shoe size: 9.5, BP: 117/57 mm Hg, BS: 120, Ht-cm: 172.72 cm, Wt-k.38 kg. * ???Past Orders: ???Lab:HEMOGLOBIN A1C (GLYCO HEMOGLOBIN) (Order Date - 08/04/2024) (Collection Date & Time - 08/04/2024 10:20 AM) ? Value Reference Range ?TOTAL HEMOGLOBIN (HGBA1C) 6.7 * Examination: ???Ophthalmology Referral: ?DIABETES EYE EXAM?Dermatologic: ?SKIN FINDINGS:?Skin exam reveals Keratotic lesion(s) located at , TA , T1 , T4 , T5 , SUB MTH (s) , 1 , B/L, Plantar Heel(s), B/L.?ULCER:?LOCATION,dorsal 1st MPJ ?LEFT, SIZE, 10 mm X 4mm X 2mm, BASE, granular, RIM, hyperkeratotic, UNDERMINING, absent, TRACKING, eschar, DRAINAGE, none, NECROTIC TISSUE, -adherent,? slough, MALODOR, absent, CALOR, absent, ERYTHEMA, absent.?Neurological: ?SENSORY:? Neurological exam demonstrates, reduced light touch sensation, reduced sharp/dull pin prick discrimination , B/L, 5.07 monofilament test performed at plantar aspects of 5 varied sites per foot shows sensation, reduced , B/L.?Vascular: ?DP PULSES (B):?3/4, B/L.?PT PULSES (B):?3/4, B/L.?CAPILLARY FILL TIME:?immediate, all digits, B/L.?TROPHIC CONDITION-TEXTURE/ELASTICITY/TURGOR/HAIR GROWTH (B):?normal, B/L.?TEMPERTURE GRADIENT (C):?normal, warm to cool, proximal to distal, B/L, B/L.?Nails: ?NAILS are:?Elongated, overgrown, dystrophic, lytic, greater than 3mm thick, discolored and friable with crumbly malodorous subungual debris , with dull to no pain on palpation due to neuropathy, TA, T1, T2, T3, T4, T5, T6, T7, T8, T9.? 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 Plan: * Treatment: * Procedures:?Debride Nail 6-10:?Nail debridement?Due to the clinical pathology outlined in the exam findings, performance of this nail treatment is medically necessary as its management by an unskilled/untrained nonprofessional would put this patients foot and overall health at risk. Therefore, debridement to affected nail(s), as described in exam ( TA, T1, T2, T3, T4, T5, T6, T7, T8, T9, ), was performed exclusively by the physician of record to reduce/remove overall nail length, girth, thickness, subungual debris, and necrotic tissue, by manual and/or electrical means through the use of a nail nipper and/or dremel-type meat grinder, to a more viable healthy nail plate or bed tissue 6- 10 nails in total. Silver nitrate was used for any petechial bleeding as necessary. Definitive antifungal treatment options, both pharmaceutical and surgical, have been reviewed and discussed with the patient. The patient solely prefers the use of intermittent/as needed professional debridement services for their nail condition and understands the need for additional periodic treatments to maintain effectiveness in symptomatic relief - 64865.?Keratoma Treatment:?Parring or Cutting of Benign Hyperkeratotic Lesion(s)?(-57) More than 4 Lesions - Due to the at risk nature of the patients medical condition as documented in the exam findings, performance of this keratoderma treatment is medically necessary as its management by an unskilled/untrained nonprofessional would put this patients foot and overall health at risk. Therefore, the benign hyperkeratotic lesions, ( 8) in total, locations as stated and described in the exam (?TA?,?T1?,?T4?,?T5?,?SUB MTH (s)?,?1?,?B/L,?Plantar Heel(s),?B/L), were pared, and/or cut utilizing a sterile 15 blade, tissue nippers, and/or power dremel instrumentation by the physician of record - 40900.? * Procedure Codes:?03293 TRIM SKIN LESIONS, OVER 4, Modifiers: XS 99903 DEBRIDE NAIL, 6 OR MORE, Modifiers: XS * Preventive Medicine:? ??Counseling:?Discussion:?-13: Office or other outpatient visit for the evaluation and management of an established patient, which required a medically appropriate history and/or examination and LOW level of DECISION MAKING for: 1 STABLE ACUTE UNCOMPLICATED PROBLEM, 2 OR MORE MINOR PROBLEMS, OR 1 STABLE CHRONIC PROBLEM, THAT POSE(S) A LOW RISK FOR MORBIDITY/MORTALITY. The visit on the day of the [...] have encouraged the patient to call the office.?Digital Treatment:?HT- I explained to the patient the possible etiologies of Hammertoes, including genetics/foot type/shoegear/activity level/exercise routine and the risks/benefits of all the different treatment options for their pain including: No treatment at all, Rest, Ice, New/supportive/wider/deeper Shoe gear, Digital Padding/Strapping/Taping/Bracing/Gel protective sleeves, Foot/Ankle AFO Bracing, Stretching exercises, Deep Tissue Massage, Arch support/shoe inserts with splay metatarsal padding, and Custom orthoses. I insisted that any digital devices be removed daily and not worn overnight for safety. The patient is to carefully examine the toes daily for any skin irritation while using any splinting or padding device. The advantages and disadvantages of each option were discussed and the patients questions re: shoe gear, padding, custom vs prefabricated inserts, activity level, and consistency in home treatment regimens for optimal success were answered to their verbally confirmed satisfaction.?Ulcer:?A detailed plan of care was reviewed with [...] availability. The patient is to apply ( mupiricin ) Antibiotic to the wound and cover [...] wound care as directed till completely healed.? ??Screening/Special Tests:?Fall Risk?Assessment:?Performed ?Screening:?One fall with injury in the past year ?FALLS: Screening for Future Fall Risk?Have you had two or more falls in the past year??No * Follow Up:?3 Months * Images: * Sign off status: Completed true * Provider:?Alpa Avelar, DPM Date:? Generated for Candace prieto/Naveed/eTransmitting on:?2024 01:37 PM EST History and Physical Notes * HPI (History of Present Illness) Category Sub-Category Detail Notes Category Not es Skin problems Location: Top, Forefoot, Left Duration: a few weeks Onset/Cause: unknown Treatments: Keflex, abx oint At Risk footcare Pt States Last PCP Visit: Date: Examination Category Sub-Category Detail Notes Category Not es Neurological SENSORY: Neurological exa m demonstrates, reduced light touch sensation, reduced sharp/dull pin prick discrimination , B/L, 5.07 monofilament test performed at plantar aspects of 5 varied sites per foot shows sensation, reduced , B/L Dermatologic SKIN FINDINGS: Skin exam reveal s Keratotic lesion(s) located at , TA , T1 , T4 , T5 , SUB MTH (s) , 1 , B/L, Plantar Heel(s), B/L ULCER: LOCATION,dorsal 1st MPJ LEFT, SIZE, 10 mm X 4mm X 2mm, BASE, granular, RIM, hyperkeratotic, UNDERMINING, absent, TRACKING, eschar, DRAINAGE, none, NECROTIC TISSUE, -adherent, slough, MALODOR, absent, CALOR, absent, ERYTHEMA, absent Ophthalmology Referral DIABETES EYE EXAM Procedure Perform ed:: Yes ?Date of Exam Performed: 02/17/2024 Findings of Diabetic Eye Exam:: no retin opathy Vascular DP PULSES (B): 3/4, B/L PT PULSES (B): 3/4, B/L CAPILLARY FILL TIME: immediate, all digi ts, B/L TEMPERTURE GRADIENT (C): normal, warm to cool, proximal to distal, B/L, B/L TROPHIC CONDITION-TEXTURE/ELASTICITY/TURGOR/HAIR GROWTH (B): normal, B/L Nails NAILS are: Elongated, overg rown, dystrophic, lytic, greater than 3mm thick, discolored and friable with crumbly malodorous subungual debris , with dull to no pain on palpation due to neuropathy, TA, T1, T2, T3, T4, T5, T6, T7, T8, T9
--- OUTSIDE RECORDS SUMMARY | 2024-08-11 13:38 | XMS_ITS ---
Author Organization [facility] Address [address] [facility] [address] [place] [phone] Care Team Providers Care Boxing Instructor Name Role Phone Connor CARDENAS, Jalil Primary Care Provider Unavailab see Frausto Jr, Zurdo Martinez [phone] REASON FOR VISIT diarrhea Encounters Encounter Location Date Provider Diagnosis [facility] [address] [place] [address] [place] [phone] 08/07/2023 Zurdo Frausto Jr PLAN OF TREATMENT Next Appt Details Provider Name:Zurdo milian Jr, 11/23/2024 09:00:00 AM, [address] [place] [address], [address], [place], [address],
--- OUTSIDE RECORDS SUMMARY | 2024-08-11 13:38 | XMS_ITS ---
Author Organization [facility] Address [address] [place] [phone] Care Team Providers Care Vending Machine Technician Name Role Phone Connor CARDENAS, Jalil Primary [...] 10/30/2023 Encounters Encounter Location Date Provider Diagnosis [facility] [address] [place] [address] 10/30/2023 Zurdo Frausto Jr Gastroesophageal reflux disease [...] Provider Name:Zurdo milian Jr, 11/23/2024 09:00:00 AM, [address] [place] [address] Drive, [address], [place], [phone],
--- OUTSIDE RECORDS SUMMARY | 2024-08-11 13:38 | XMS_ITS | Patient Health Record ---
[facility] Address [address] [place] [address] Care Team Providers Care Director Report Name Role Phone Jalil Ryan MD Primary Care Provider Unavailab Alpa Johnson Unavailable [phone] Randy Louis Unavailable [phone] Allergies Allergen (clinical drug ingredient) Drug/Non Drug [...] (HH) 6.2 HEMOGLOBIN A1C (GLYCOHEMOGLO BIN) Reviewed date:08/07/2024 10:21:31 AM Interpretation: Performing Lab: Notes/Report: TOTAL HEMOGLOBIN (HGBA1C) 6.7 HEMOGLOBIN A1C (GLYCOHEMOGLO BIN) Reviewed date:06/02/2024 10:36:26 AM Interpretation: Performing Lab: Notes/Report: TOTAL HEMOGLOBIN (HGBA1C) 6.0 Reason For Referral No Information Medications Medication SIG (Take, Route, Frequency, Duration) Notes Start Date End Date Status Santyl 250 UNIT/GM 1 application to affected area Externally to Foot Ulcer Once a day to wound 0.5 cm x 0.5 cm x 0.3 cm left 5th toe for 30 days 11/07/2023 Not-Taking Cephalexin 500 MG 1 capsule Orally every 12 hrs for 7 days Not-Taking Citalopram Hydrobromide 10 MG Orally Active Extra Depth Orthopedic Shoes (1 Pair) with Customized Heat Molded Multidensity Innersoles (3 Pair) as directed Dx: NIDDM/Polyneuropath y (E11.42), Hammertoe Foot Deformity (M20.41,M20.42), Preulcerative Skin Lesion(s) (L85.1 10/27/2019 Not-Taking Finasteride 5 MG 1 tablet Orally Once a day Active Ibuprofen 800 MG 1 tablet Orally Three times a day for 7 days 06/26/2022 Not-Taking Isosorbide Mononitrate 120 1 tablet once a day Active traMADol HCl 50 MG 1 tablet as needed Orally Every 6 hours as need for pain for 7 days 06/26/2022 Not-Taking Lopressor 100 MG Orally Twice a day Active Glucophage 500 MG 1 tab Orally once a day x2 500 Not-Taking CoQ-10 Active Keflex 500 MG 1 capsule Orally every 12 hrs for 5 days 07/16/2023 Not-Taking Lyrica x3 a day Active Trulicity 3 MG/0.5ML as directed Subcutaneous Not-Taking aspirin baby Active Ferrous Gluconate No t-Taking Flomax Active Lasix 40 MG Orally Not-Taki ng Norvasc 5 MG Orally Once a day Active Atorvastatin Calcium 80 MG 1 tablet Orally Once a day for 30 day(s) Active Physical Therapy . . . 2-3x/week for 3-4 weeks 07/17/2022 Not-Taking Benicar 20 MG Orally Not-Ta laura Metoprolol Succinate 50 MG 1 capsule Orally Once a day for 30 day(s) Active Ambrisentan 5 MG 1 tablet Orally Once a day for 30 day(s) Not-Taking Lipitor Active Cephalexin 500 MG 1 capsule Orally every 12 hrs for 7 days Active Omeprazole Not-Takin g Probiotic Active PriLOSEC Not-Taking Prilosec Not-Taking Centrum Silver Activ e Amitriptyline HCl 25 MG 1 tablet at bedt dayana Orally Once a day for 30 day(s) Not-Taking Benefiber Active Questran 2 Scoops a day Not-Taking Extra Depth Orthopedic Shoes (1 Pair) with Customized Heat Molded Multidensity Innersoles (3 Pair) as directed Dx: NIDDM/Polyneuropath y (E11.42), Hammertoe Foot Deformity (M20.41,M20.42), Preulcerative Skin Lesion(s) (L85.1 10/12/2022 Active hydroCHLOROthiazide 12.5 MG 1 capsule in the morning Orally Once a day for 30 day(s) Not-Taking Jardiance 25 MG 1 tablet Orally Once a day for 30 days Active Simvastatin 40 MG Orally No t-Taking Pantoprazole Sodium 40 MG 1 tablet Orall y Once a day Active Gabapentin Not-Takin g Ferrous Gluconate Ac tive Extra Depth Orthopedic Shoes (1 Pair) with Customized Heat Molded Multidensity Innersoles (3 Pair) as directed Dx: NIDDM/Polyneuropath y (E11.42), Hammertoe Foot Deformity (M20.41,M20.42), Preulcerative Skin Lesion(s) (L85.1 11/07/2023 Active Voltaren 1 % as directed Transdermal Apply to affected area(s) four times a day for 30 days 01/07/2019 Not-Taking Dicyclomine HCl Acti ve Doxycycline Monohydrate 100 MG 1 tablet Orally Twice a day for 7 days 12/02/2023 Not-Taking amLODIPine Besylate 2.5 MG 1 tablet Orally Once a day Active Ozempic Active Immunizations Vaccine Route Administration Date Status [...] Problem Acquired hammer toe of right foot (2091359614104558) Other hammer toe(s) (acquired), right foot (M20.41) Active confirmed Problem Acquired hammer toe of left foot (1757776939026794) Other hammer toe(s) (acquired), left foot (M20.42) Active confirmed Problem Polyneuropathy due to type 2 diabetes mellitus (383831589) Type 2 diabetes mellitus with diabetic polyneuropathy (E11.42) Active confirmed Problem Polyneuropathy due to type 2 diabetes mellitus (841565175) Type 2 diabetes mellitus with diabetic polyneuropathy (E11.42) Active confirmed Problem 376201636324395 Hallux valgus (acquired), left foot (M20.12) Active confirmed Problem 316648191008596 Hallux valgus (acquired), right foot (M20.11) Active confirmed Problem Acquired hammer toe of right foot (2360523044508412) Hammer toe of right foot (M20.41) Active confirmed Problem Acquired hammer toe of left foot (5846496019677374) Hammer toe of left foot (M20.42) Active confirmed Problem 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 (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) Active confirmed Response to treatment Problem 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) Active confirmed Response to treatment Problem 94132530512937789 Neuropathic fo ot ulcer, left, limited to breakdown of skin (L97.521) Active confirmed Problem Essential hypertension (59476162) Essential hypertension (I10) Active confirmed Vital Signs Blood pressure diastolic 57 mm Hg 08/07/2024 Height 5ft 8in in 08/07/2024 Blood pressure systolic 117 mm Hg 08/07/2024 Weight 175 lbs 08/07/2024 BMI 26.61 kg/m2 08/07/2024 Encounters Encounter Location Date Provider Diagnosis [facility] [address] [place] [address] 11/07/2023 Alpa Avelar Other hammer toe(s) (acquired), right foot M20.41 ; Cellulitis of toe of left foot L03.032 ; Neuropathic ulcer of left foot with fat layer exposed L97.522 ; Other hammer toe(s) (acquired), left foot M20.42 ; Type 2 diabetes mellitus with diabetic polyneuropathy E11.42 and Tinea unguium B35.[address] [address] 11/20/2023 Alpa Perica Type 2 diabetes mellitus with diabetic polyneuropathy E11.42 ; Neuritis M79.2 ; Other hammer toe(s) (acquired), left foot M20.42 ; Cellulitis of left toe L03.032 and 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 L97.[address] [address] 11/29/2023 Alpa Perica Neuropathic ulcer of left foot with fat layer exposed L97.522 ; Cellulitis of toe of left foot L03.032 ; Other hammer toe(s) (acquired), left foot M20.42 and Type 2 diabetes mellitus with diabetic polyneuropathy E11.[address] [address] 12/05/2023 Alpa Perica Neuropathic ulcer of left foot with fat layer exposed L97.522 ; Cellulitis of toe of left foot L03.032 ; Other hammer toe(s) (acquired), left foot M20.42 and Type 2 diabetes mellitus with diabetic polyneuropathy E11.[address] [address] 12/11/2023 Alpa Perica Neuropathic ulcer of left foot with fat layer exposed L97.522 ; Cellulitis of toe of left foot L03.032 ; Other hammer toe(s) (acquired), left foot M20.42 and Type 2 diabetes mellitus with diabetic polyneuropathy E11.[address] [address] 12/24/2023 Alpa Perica Neuropathic ulcer of left foot with fat layer exposed L97.522 ; Cellulitis of toe of left foot L03.032 ; Other hammer toe(s) (acquired), left foot M20.42 and Type 2 diabetes mellitus with diabetic polyneuropathy E11.[address] [address] 01/14/2024 Alpa Perica Type 2 diabetes mellitus with diabetic polyneuropathy E11.42 and Tinea unguium B35.[address] [address] 04/03/2024 Alpa Avelar Type 2 diabetes mellitus with diabetic polyneuropathy E11.42 ; Other hammer toe(s) (acquired), left foot M20.42 ; Tinea unguium B35.1 ; Other hammer toe(s) (acquired), right foot M20.41 ; 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 L97.521 ; Hallux valgus (acquired), left foot M20.12 and Hallux valgus (acquired), right foot M20.[address] [address] 06/02/2024 Alpa Avelar Other hammer toe(s) (acquired), left foot M20.42 ; Hallux valgus (acquired), left foot M20.12 ; Type 2 diabetes mellitus with diabetic polyneuropathy E11.42 ; Tinea unguium B35.1 ; Other hammer toe(s) (acquired), right foot M20.41 and Hallux valgus (acquired), right foot M20.[address] [address] 07/24/2024 Alpa Avelar Neurotrophic ulcer o f left foot limited to breakdown of skin L97.521 and Type 2 diabetes mellitus with diabetic polyneuropathy E11.[address] [address] 08/07/2024 Alpa Avelar Neurotrophic ulcer o f left foot limited to breakdown of skin L97.521 ; Type 2 diabetes mellitus with diabetic polyneuropathy E11.42 ; Tinea unguium B35.1 ; Other hammer toe(s) (acquired), left foot M20.42 and Hammer toe of right foot M20.[address] [address] 11/29/2023 Alpa Avelar [address] [address] 01/15/[address] [place] [address] 04/03/2024 Alpa Perica [facility] [address] [address] 07/02/2024 Alpa Perica [facility] [address] [address] 07/31/2024 Alpa Perica Cellulitis of toe of left foot L03.[address] [facility] [address] 07/31/2024 Alpa Perica Cellulitis of toe of left foot L03.032 [...] toe of left foot (ICD-10 - L03.032) 08/07/2024 Type 2 diabetes mellitus with diabetic polyneuropathy (ICD-10 - E11.42) 08/07/2024 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 pdf (WOUND CARE INSTRUCTIONS. pdf) 08/07/2024 Tinea unguium (ICD-10 - B35.1) 06/02/2024 Type 2 diabetes mellitus with diabetic [...] E11.42) 06/02/2024 Tinea unguium (ICD-10 - B35.1) 08/07/2024 Other hammer toe(s) (acquired), left foot (ICD-10 - M20.42) 04/03/2024 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 (ICD-10 - L97.521) Response to treatment Patient Educated with: WOUND CARE INSTRUCTIONS. pdf (WOUND CARE INSTRUCTIONS. pdf) 06/02/2024 Other hammer toe(s) (acquired), right foot (ICD-10 - M20.41) 08/07/2024 Hammer toe of right foot (ICD-10 - M20.41) 11/20/2023 Neurotrophic [...] X ray : Foot, left 3V 11/29/2023 96770-VHIMHSR NAIL, 6 OR MORE 10/12/2022 87050-WFNZXZI NAIL, 6 OR MORE 06/11/2018 35883-UCVCRHP NAIL, 6 OR MORE 09/17/2018 94766-CWWWZGH NAIL, 6 OR MORE 12/15/2018 86879-MCKMAOI NAIL, 1-5 02/06/2016 77050-Spbq Destruction, 1-14 05/19/2018 47187-Gwtm Destruction, 1-14 06/11/2018 64492-DYBD SKIN LESIONS, OVER 4 10/12/19 23 98608-CMYL SKIN LESIONS, 2 TO 4 12/16/19 19 56190-QIKF SKIN LESIONS, 2 TO 4 06/11/20 18 44996-NCLR SKIN LESIONS, 2 TO 4 02/06/20 16 29077-DKUG SKIN LESIONS, 2 TO 4 09/17/19 19 J5247-OUJNXQGG DYSTROPHIC NAILS ANY # 89880-XAVUDWUF OF HEMATOMA/FLUID 023 79289,D0278-SID TENDON SHEATH/LIGAMENT 0 09/17/2018 08189,D1929-XDC TENDON SHEATH/LIGAMENT 0 12/15/2018 Next Appt Details Provider Name:Alpa phan, 11/03/2024 11:15:00 AM, [address] [facility], [place], [address], Insurance Providers Payer Name Payer Address Payer Phone Subscriber Number Group Number Insured Name Patient Relationship to Insured Coverage Start Date Coverage End Date Medicare National [employer] [address] [place] [address] [id number] Chris Dawson Self - patient is the insured 2 [employer] [facility] [address] [place] [address] [phone] [id number] Chris Dawson Self - patient is the [...] Retina surgery 05/09/2023 Hospitalization History Reason Date(Month/Year) [facility]- wound infection 0 02/27/24 [facility]/ Dehydration 07/19/22
--- OUTSIDE RECORDS SUMMARY | 2024-08-11 13:38 | XMS_ITS ---
Author Organization [facility] Address [address] [place] [address] Care Team Providers Care Dry Pan Operator Name Role Phone Jalil Ryan MD Primary Care Provider Unavailab Alpa Johnson Unavailable [phone] REASON FOR VISIT Cephalexin (500 MG Capsule) Medications Medication SIG (Take, Route, Fr equency, Duration) Notes Start Date End Date Status Cephalexin 500 MG 1 capsule Orally lamonte ry 12 hrs for 7 days Active Encounters Encounter Location Date Provider Diagnosis [facility] [address] [place] [address] 07/31/2024 Alpa Avelar Cellulitis of toe of [...] days Next Appt Details Provider Name:Alpa phan, 11/03/2024 11:15:00 AM, [address] [place], [address], Progress Notes * Chris MADRIGAL MDOB:[birth year] (78 yo M)Acc No.[id number]:07/31/2024 Patient:?Chris MADRIGAL :1945???Age:78 Y???Sex:Male Address:[address] [place] [address], [place] [address] * Refills? Refill Cephalexin Capsule, 500 MG, Orally, 14 Capsule, 1 capsule, every 12 hrs, 7 days, Refills=0 * true * Date:? Generated for Candace prieto/Naveed/Harmeetitting on:?2024 01:38 PM EST
--- OUTSIDE RECORDS SUMMARY | 2024-08-11 13:38 | XMS_ITS ---
Author Organization [facility] Address [address] [place] [address] Care Team Providers Care Patron Attendant Name Role Phone Connor CARDENAS, Jalil Primary Care Provider Unavailab Zurdo Luz Jr REASON FOR VISIT Patient presents today for diarrhea Encounters Encounter Location Date Provider Diagnosis [facility] [address] [place] [address] [place] [address] 07/29/2024 Zurdo Frausto Jr PLAN OF TREATMENT Next Appt Details Provider Name:Zurdo milian Jr, 11/23/2024 09:00:00 AM, [address] [place] [address], [address], [place], [address],
--- OUTSIDE RECORDS SUMMARY | 2024-08-11 13:38 | XMS_ITS ---
Author Organization [facility] Address [address] [place] [address] Care Team Providers Care Information Coder Name Role Phone Jalil Ryan MD Primary Care Provider Unavailab Alpa Johnson Unavailable [phone] REASON FOR VISIT wounds on left foot way worse Medications Medication SIG (Take, Route, Fr equency, Duration) Notes Start Date End Date Status Cephalexin 500 MG 1 capsule Orally lamonte ry 12 hrs for 7 days Active Encounters Encounter Location Date Provider Diagnosis [facility] [address] [place] [address] 07/31/2024 Alpa Avelar Cellulitis of toe of [...] Provider Name:Alpa phan, 11/03/2024 11:15:00 AM, [address] [place], [address], Progress Notes * Chris MADRIGAL MDOB:[birth year] (78 yo M)Acc No.[id number]:07/31/2024 Patient:?Chris MADRIGAL :1945???Age:78 Y???Sex:Male Address:[address] [place] [address] Rd, [place] [address] * Refills? Refill Cephalexin Capsule, 500 MG, Orally, 14 Capsule, 1 capsule, every 12 hrs, 7 days, Refills=0 * true * Date:? Generated for Candace prieto/Naveed/Harmeetitting on:?2024 01:38 PM EST
--- OUTSIDE RECORDS SUMMARY | 2024-08-11 13:39 | XMS_ITS | Patient Health Record ---
Author Organization [facility] Address [address] [place] [address] Care Team Providers Care Automotive Artist Name Role Phone Connor CARDENAS, Jalil Primary [...] Problem Diarrhea, unspecified type (R19.7) Active confirmed 52392443 Problem Incontinence of feces, unspecified fecal incontinence type (R15.9) Active confirmed Incontinence of feces (90234267) Problem Gastroesophageal reflux disease without esophagitis (K21.9) Active confirmed 664244567 VITAL SIGNS Temperature 97.1 degrees Fahrenheit 10/30/2023 Blood pressure diastolic 00 mm Hg 10/30/2023 Height 68 in 10/30/2023 Blood pressure systolic 000 mm Hg 10/30/2023 Weight 175 lbs 10/30/2023 BMI 26.61 kg/m2 10/30/2023 Encounters Encounter Location Date Provider Diagnosis [facility] [address] [place] [address] 10/30/2023 Zurdo Frausto Jr Gastroesophageal reflux disease without esophagitis K21.9 ; Incontinence of feces, unspecified fecal incontinence type R15.9 and Diarrhea, unspecified type R19.7 [facility] [address] [place] [address] 07/29/2024 Zurdo Frausto Jr ASSESSMENTS Encounter Date [...] (O&P) 11/20/2022 Next Appt Details Provider Name:Zurdo fernandesdrea Subramanian, 11/23/2024 09:00:00 AM, [address] [facility], [address], [place], [address], Insurance Providers Payer Name Payer Address Payer Phone Subscriber Number Group Number Insured Name Patient Relationship to Insured Coverage Start Date Coverage End Date MEDICARE OF [facility] [address] [place] [address] [id number] MARIA LUZ CONNOR Self - patient is the insured [employer] [address] [place] [address] [id number] MARIA LUZ CONNOR Self - patient is [...]
== END 2024-08-11 13:35 | disposition home or self-care (01) ==
LOC: HO.US 13:34
PROVIDERS: PCP Family Medicine; Visit Provider Family Medicine
DX: R42 Dizziness and giddiness (principal); E11.42 Type 2 diabetes mellitus with diabetic polyneuropathy; I25.10 Atherosclerotic heart disease of native coronary artery without angina pectoris
CPT/HCPCS: 93880

== ENCOUNTER 2024-11-06 09:29 | Outpatient (REF) | payer MEDICARE, OTHER, SELFPAY ==
[2024-11-06 09:47] LABS: MANUAL DIFF FLAG NO
[2024-11-06 10:30] LABS: Basophils Absolute Auto 0.1 X10*3/uL (0.0-0.2); Basophils Percent Auto 0.6 % (0-2); Eosinophils Absolute Auto 0.2 X10*3/uL (0.0-0.4); Eosinophils Percent Auto 2.4 % (0-4); Hematocrit 52.8 % (42.0-52.0); Hemoglobin 17.9 g/dl (14.0-18.0); Imm Gran Pct Auto 1.2 % (0.0-0.4); Lymphocytes Absolute Auto 1.1 X10*3/uL (1.2-4.9); Lymphocytes Percent Auto 13.3 % (20-40); Mean Corpuscular HGB Conc 33.9 g/dl (31.0-36.0); Mean Corpuscular Hemoglobin 29.8 pg (27.0-33.0); Mean Platelet Volume 10.8 fL (9.4-12.4); Monocytes Absolute Auto 0.8 X10*3/uL (0.1-1.2); Monocytes Percent Auto 9.5 % (2-11); Neutrophils Absolute Auto 6.1 x10*3/uL (2.0-8.3); Platelet Count 128 X10*3/uL (160-400); Red Cell Distribution Width 14.4 % (11.0-16.0); White Blood Count 8.4 X10*3/uL (4.8-10.8)
[2024-11-06 11:23] LABS: Alanine Aminotransferase 92 U/L (0-40); Albumin Level 3.7 g/dL (3.5-5.0); Alkaline Phosphatase 144 U/L (39-117); Anion Gap 10 (12-20); Aspartate Amino Transferase 45 U/L (5-37); Bilirubin Total 1.6 mg/dL (0.0-1.0); Blood Urea Nitrogen 19 mg/dL (9-16); Calcium 8.6 mg/dL (8.4-10.2); Carbon Dioxide 28 mmol/L (22-29); Chloride 105 mmol/L (96-108); Estimated Glomerular Filt Rate 44; Glucose Random 164 mg/dL (60-115); Potassium 4.1 mmol/L (3.3-5.1); Sodium 139 mmol/L (135-145); Total Protein 6.2 g/dL (6.5-8.0)
== END 2024-11-06 09:30 | disposition home or self-care (01) ==
LOC: HO.LAB 09:29
PROVIDERS: PCP Family Medicine; Visit Provider Internal Medicine Hypertension Specialist
DX: N18.30 Chronic kidney disease, stage 3 unspecified (principal)
CPT/HCPCS: 36415; 80053; 85025

== ENCOUNTER 2024-11-10 11:12 | Outpatient (AMB) | payer MEDICARE, OTHER, SELFPAY ==
[2024-11-10 11:18] VITALS: BP 116/64; PULSE 77; O2SAT 96; BMI 27.7
--- NOTE | 2024-11-10 11:18 | HO.NEPHOV_ITS ---
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: No Accompanied by: Spouse Allergies demerol Allergy (Unknown, Uncoded 04/20/20 00:00) itching From DEMEROL Adverse Reaction (Mild, Uncoded 05/05/20 15:39) ITCHINESS Medication List - Last Reconciled 11/10/24 by Jovani Oneill MD amitriptyline 25 mg PO BEDTIME amlodipine 5 mg PO DAILY aspirin 81 mg PO DAILY atorvastatin 80 mg PO DAILY citalopram 10 mg PO DAILY coenzyme Q10 (H2Q CoQ10) 100 mg PO cyclobenzaprine 10 mg PO TID PRN dicyclomine 10 mg PO DAILY empagliflozin (Jardiance) 25 mg PO DAILY ferrous sulfate 325 mg PO DAILY finasteride 5 mg PO DAILY furosemide 40 mg PO DAILY isosorbide mononitrate ER 120 mg PO DAILY metoprolol tartrate 100 mg PO BID mmwcmauknvda-auwklbce-gcrqcw 1 tab PO DAILY nitroglycerin mg sublingual pantoprazole 40 mg PO DAILY pregabalin 75 mg PO TID semaglutide (Ozempic) 2 mg subcut QWEEK tamsulosin (Flomax) 0.4 mg PO DAILY HPI Comments Details: Mariajose is a 78-year-old man with history of longstanding hypertension and diabetes mellitus complicated by coronary disease and mild CKD. He has pulmonary hypertension as well. He developed diarrhea with metformin which has improved. From a renal standpoint he is doing reasonably well. Continues have shortness of breath on exertion. He is being evaluated by Cardiology and Pulmonary. He is waiting for a 6 minutes stress test. 10/30: Now on Ozempic- self prescribed Also on Jardiance ;Diarrhea is better ;A1C is 5.8% 04/07/24; Off Benicar; Home BP is OK ; No further diarrhea ;No change in resp status ;c/o leg pain / ache when he walks 08/03/24;On ozempic ; No weight loss yet 11/10/24: Foot problems- seen by vice president diversity Still on Ozempic and no further weight loss. No more diarrhea [facility] Family History Father Heart attack Diabetes Mother Heart attack Lung cancer Physical Exam Vital Signs: Last Vital Signs Pulse 77 11/10/24 11:18 BP 116/64 11/10/24 11:18 Pulse Ox 96 11/10/24 11:18 Oxygen Delivery Method Room Air 11/10/24 11:18 BMI result Body Mass Index 27.7 Results Reviewed Results Reviewed: Jul 2024 US/US carotid duplex BI IMPRESSION: 1. RIGHT: Normal right internal carotid artery without atherosclerotic plaque or hemodynamically significant stenosis. 2. LEFT: Normal left internal carotid artery without atherosclerotic plaque or hemodynamically significant stenosis. Nephrology Results: Hgb 17.9 g/dl (14.0-18.0) 11/06/24 WBC 8.4 X10*3/uL (4.8-10.8) 11/06/24 Plt Count 128 X10*3/uL (160-400) L 11/06/24 Sodium 139 mmol/L (135-145) 11/06/24 Potassium 4.1 mmol/L (3.3-5.1) 11/06/24 Chloride 105 mmol/L (96-108) 11/06/24 Carbon Dioxide 28 mmol/L (22-29) 11/06/24 BUN 19 mg/dL (9-16) H 11/06/24 Creatinine 1.55 mg/dL (0.5-1.4) H 11/06/24 Calcium 8.6 mg/dL (8.4-10.2) 11/06/24 Assessment & Plan Assessment & Plan (1) CKD (chronic kidney disease) stage 2, GFR 60-89 ml/min: Code(s): N18.2 - Chronic kidney disease, stage 2 (mild) Category: Medical (2) HTN (hypertension): Code(s): I10 - Essential (primary) hypertension Category: Medical (3) Diabetes insipidus, neurohypophyseal: Code(s): 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 1. Hypertension. Blood pressure is acceptable 2. Nonischemic cardiomyopathy. Follow-up with [facility]. 3. Chronic kidney disease stage 3. Serum creatinine stable at 1.54 in jul 2024 Now at 1.55 Fluid status is optimal. Next item no indication for a diuretic at this time. Will benefit from SGLT2 inhibitor. Continue to avoid nephrotoxic agents. 4. Polycythemia Hemoglobin is 17.2. ; Has follow-up appointment with Hematology 5. Diabetes mellitus. Recent A1C 6.7% ;Ozempic and the dose is being titrated. 6. Diarrhea has improved 7. Elevated LFTs- NEeds follow up with GI All his questions were answered. Orders: Orders Comprehensive Met. Panel 3 Months N18.2 - Chronic kidney disease, stage 2 (mild) Complete Blood Count no Diff 3 Months N18.2 - Chronic kidney disease, stage 2 (mild) Coding Level of Care Code Est Pt Level 4 (57547) Diagnoses CKD (chronic kidney disease) stage 2, GFR 60-89 ml/min N18.2 HTN (hypertension) I10 Diabetes insipidus, neurohypophyseal E23.2 Pulmonary fibrosis J84.10 Obesity E66.9
== END 2024-11-10 11:39 | disposition home or self-care (01) ==
LOC: HO.HKA 11:13
PROVIDERS: PCP Family Medicine; Visit Provider Internal Medicine Hypertension Specialist
DX: I12.9 Hypertensive chronic kidney disease with stage 1 through stage 4 chronic kidney disease, or unspecified chronic kidney disease (principal); N18.2 Chronic kidney disease, stage 2 (mild); E23.2 Diabetes insipidus; J84.10 Pulmonary fibrosis, unspecified; E66.9 Obesity, unspecified
CPT/HCPCS: 99214

== ENCOUNTER → 2024-11-10 11:12 | Outpatient (BNVA) | payer MEDICARE, OTHER, SELFPAY | PROVIDERS: PCP Family Medicine; Visit Provider Internal Medicine Hypertension Specialist | DX: I12.9 Hypertensive chronic kidney disease with stage 1 through stage 4 chronic kidney disease, or unspecified chronic kidney disease (principal); N18.2 Chronic kidney disease, stage 2 (mild); E23.2 Diabetes insipidus; E66.9 Obesity, unspecified; J84.10 Pulmonary fibrosis, unspecified; Z68.27 Body mass index [BMI] 27.0-27.9, adult | CPT/HCPCS: 99212 ==

== ENCOUNTER 2024-12-30 08:23 | Outpatient (REF) | payer MEDICARE, OTHER, SELFPAY ==
--- NOTE | ~2024-12-30 | US_ITS ---
EXAMINATION: US ABDOMEN HISTORY: ABNORMAL LFTS TECHNIQUE: Real-time grayscale ultrasound imaging of the abdomen was performed and images were reviewed. COMPARISON: Comparison is made with the prior examination dated 09/29/2018. FINDINGS: Liver: The right lobe of the liver measures 15.4 cm in size. The left lobe of the liver measures 10.9 cm in size. The liver demonstrates increased echotexture, consistent with steatosis. No focal mass or intrahepatic biliary ductal dilatation is identified. There is normal hepatopedal flow in the portal vein. Gallbladder and biliary tree: The gallbladder is surgically absent. The common bile duct is not identified. Kidneys: The right kidney measures 12.2 cm in length and demonstrates mild cortical thinning, but is otherwise unremarkable. The left kidney measures 12.8 cm in length and also demonstrates mild cortical thinning. There is a 2.9 x 2.0 x 2.1 cm septated cyst in the interpolar region laterally and a 1.5 x 1.1 x 1.6 cm septated cyst in the interpolar region medially. The left kidney is otherwise unremarkable. Pancreas: The pancreas is obscured by bowel gas. Spleen: The spleen is normal in size and contour, measuring 12.1 cm in length. Abdominal aorta and inferior vena cava: The visualized portions of the abdominal aorta and inferior vena cava are normal in caliber. There is no free fluid in the abdomen. US/US abdomen complete IMPRESSION: 1. Hepatomegaly and hepatic steatosis. 2. Mildly complicated left renal cysts as described. Follow-up is recommended. Electronically signed by: South Melgoza MD 12/30/2024 09:08 AM EDT
--- OUTSIDE RECORDS SUMMARY | 2024-12-30 08:35 | XMS_ITS ---
Author Organization [facility] Address [address] [place] [id number] Care Team Providers Care [employer] Name Role Phone Connor CARDENAS, Jalil Primary Care Provider UnavailZurdo Deras Jr Unavailable [phone] Allergies Allergen (clinical drug ingredient) Drug/Non Drug Allergy documented on EMR Reaction Allergy Type Onset Date Status meperidine Demerol Unknown Drug Allergy Active REASON FOR VISIT Patient presents today for diarrhea Medications Medication SIG (Take, Route, Frequency, Duration) Notes Start Date End Date Status Benicar 20 MG 1 tablet Orally Once [...] Once a day for 30 day(s) Active Isosorbide Mononitrate ER 120 MG 1 tablet in the morning Orally Once a day for 30 day(s) Active Finasteride 5 MG 1 tablet Orally Once a day for 30 day(s) Active Citalopram Hydrobromide 10 MG/5ML 5 mL Orally Once a day for 30 day(s) Active Lyrica 75 MG 1 capsule Orally Twi ce a day Active Lipitor 80 MG 1 tablet Orally Once a day for 30 day(s) Active Centrum Silver 50+Men - as directed Orally Active CoQ-10 100 MG as directed Orally Active Ferrous Gluconate 324 (38 Fe) MG 1 tablet with water or juice between meals Orally Once a day for 30 day(s) Active Probiotic - as directed Orally Active Jardiance 25 MG 1 tablet Orally Once a day for 30 days Active Dicyclomine HCl 10 MG 2 capsules Orally Three times a day Active Alpha Lipoic Acid 200 MG 1 capsule Orall y Once a day Active Amitriptyline HCl 25 MG 1 tablet at bedt dayana Orally Once a day Active Ozempic (1 MG/DOSE) 4 MG/3ML as directed Subcutaneous Act noel Benefiber Drink Mix - as directed Orally Active Lasix 40 MG 1 tablet Orally Once a day Active Pantoprazole Sodium 40 MG 1 tablet 1/2 t o 1 hour before morning meal Orally Once a day Active Flomax 0.4 MG 1 capsule Orally Onc e a day Active Social History Tobacco Use: Social History Observation Description Date Details (start date - stop date) Never Smoker NA - NA Tobacco Use/Smoking Question Answer Notes Patient is a nonsmoker Alcohol Screen Question Answer Notes Did you have a drink containing alcohol in the p ast year? No Points 0 Interpretation Negative Vital Signs Temperature 96.9 degrees Fahrenheit 11/24/19 25 Blood pressure systolic 001 mm Hg 11/24/19 25 Blood pressure diastolic 01 mm Hg 025 Height 68 in 11/23/2024 Weight 188.4 lbs 11/23/2024 BMI 28.64 kg/m2 11/23/2024 Encounters Encounter Location Date Provider Diagnosis [facility] [address] [place] [address] 11/23/2024 Zurdo Frausto Jr Abnormal LFTs R79.89 Assessments Encounter Date Diagnosis (ICD Code) Assessment Notes Treatment Notes Treatment Clinical Notes Section Notes 11/23/2024 Abnormal LFTs (ICD-10 - R79.89) Plan Of Treatment Pending Test Test Name Order Date US ABD 11/23/2024 Next Appt Details Provider Name:Zurdo milian Jr, 11/24/2025 09:00:00 AM, [address], [address], [place], [address], Progress Notes * MARIA LUZ BRIGHT MDOB:[birth year] (79 yo M)Acc No.[id number]:11/23/2024 Progress Notes Patient:?MARIA LUZ BRIGHT Provider:?Zurdo Frausto MD :[id number]???Age:79 Y???Sex:Male Virgil e:11/23/2024 Address:[address] [place], [place] [id number] Pcp:Jalil Ryan MD Subjective: * Chief Complaints: * ???1. Patient presents today for diarrhea. * Medical History:?Diabetes me llitus type 2, Chronic kidney disease stage II, Pulmonary hypertension, Systemic hypertension, Bladder cancer, Coronary artery disease with stent placement, JACQUELIN/CPAP, MGUS, Hyperlipidemia, EGD/colonoscopy 11/06, gastric nodules, normal duodenal biopsies, gastric biopsy showed fundic gland polyp colonoscopy 2 tubular adenomas and normal random biopsies. * Surgical History:?prostatect faustino 10 years ago, Multiple hernia repairs , cholecystectomy , Cataract repairs . * Family History:?Father: dece ased, diagnosed with HTN (hypertension), Diabetes.?Mother: , diagnosed with HTN (hypertension).? No family history of colon cancer or liver cancer. * Social History:?Tobacco Use:?Tobacco Use/Smoking?Patient is a?nonsmoker.?Drugs/Alcohol:?Alcohol Screen?Did you have a drink containing alcohol in the past year??No,?Points?0,?Interpretation?Negative.?Miscellaneous:?Marital status: . Occupation: retired. * Medications:?Taking Pantopra zole Sodium 40 MG Tablet Delayed Release 1 tablet 1/2 to 1 hour before morning meal Orally Once a day , Taking Lasix 40 MG Tablet 1 tablet Orally Once a day , Taking Flomax 0.4 MG Capsule 1 capsule Orally Once a day , Taking Dicyclomine HCl 10 MG Capsule 2 capsules Orally Three times a day , Taking Amitriptyline HCl 25 MG Tablet 1 tablet at bedtime Orally Once a day , Taking Alpha Lipoic Acid 200 MG Capsule 1 capsule Orally Once a day , Taking Ozempic (1 MG/DOSE) 4 MG/3ML Solution Pen-injector as directed Subcutaneous , Taking Benefiber Drink Mix - Packet as directed Orally , Taking Jardiance 25 MG Tablet 1 tablet Orally Once a day , Taking CoQ-10 100 MG Capsule as directed Orally , Taking Centrum Silver 50+Men - Tablet as directed Orally , Taking Probiotic - Tablet Chewable as directed Orally , Taking Ferrous Gluconate 324 (38 Fe) MG Tablet 1 tablet with water or juice between meals Orally Once a day , Taking Finasteride 5 MG Tablet 1 tablet Orally Once a day , Taking Isosorbide Mononitrate ER 120 MG Tablet Extended Release 24 Hour 1 tablet in the morning Orally Once a day , Taking Lyrica 75 MG Capsule 1 capsule Orally Twice a day , Taking Citalopram Hydrobromide 10 MG/5ML Solution 5 mL Orally Once a day , Taking Lipitor 80 MG Tablet 1 tablet Orally Once a day , Taking Questran 4 GM Packet 1 packet mixed with water or non-carbonated drink Orally Once a day , Taking Norvasc 5 MG Tablet 1 tablet Orally Once a day , Taking Lopressor 100 MG Tablet 1 tablet with food Orally Twice a day , Taking Benicar 20 MG Tablet 1 tablet Orally Once a day , Taking Aspirin 81 81 MG Tablet Chewable 1 tablet Orally Once a day , Medication List reviewed and reconciled with the patient * Allergies:?Demerol. Objective: * Vitals:?Wt:188.4lbs, Ht: 68 in, BMI:28.64Index, BP:001/01mm Hg, Temp:96.9, Wt- k.46. Assessment: * Assessment: 1.?Abnormal LFTs - R79.89 (P rimary)??? Plan: * Treatment: * * Preventive Medicine:? ??Counseling:?Care goal follow-up plan:?Above Normal BMI Follow-up?Dietary management education, guidance, and counseling,?BMI management provided?Yes.? ??Screenings:?Fall Risk Screening?Fall Risk Assessment:?One fall with injury in the past year,?Screening:?One fall with injury in the past year,?Assessment:?Not performed, no reason specified,?Plan of Care:?Documented,?Type of fall plan of care:?Balance, strength and gait training or instruction provided.? * * The named appointment provid er may or may not be the originator of this progress note, and it is not deemed complete until electronically signed by the appointment provider. Sign off status: Pending * Provider:?Zurdo Frausto MD Date:?0 11/23/2024 Generated for Candace prieto/Naveed/Topher on:?12/30/2024 08:35 AM EDT
--- OUTSIDE RECORDS SUMMARY | 2024-12-30 08:35 | XMS_ITS ---
Author Organization [facility] Address [address] [place] [address] Care Team Providers Care Audio Visual Technician Name Role Phone Connor CARDENAS, Jalil Primary Care Provider UnavailAlpa Carreon Unavailable [phone] Allergies Allergen (clinical drug ingredient) Drug/Non Drug Allergy documented on EMR Reaction Allergy Type Onset Date Status meperidine Demerol itch Drug Allergy Active REASON FOR VISIT Open sore Medications Medication SIG (Take, Route, Frequency, Duration) Notes Start Date End Date Status Omeprazole Not-Takin g Voltaren 1 % as directed Transdermal Apply to affected area(s) four times a day for 30 days 01/07/2019 Not-Taking Prilosec Not-Taking Gabapentin Not-Takin g Simvastatin 40 MG Orally No t-Taking Physical Therapy . . . 2-3x/week for 3-4 weeks 07/17/2022 Not-Taking Glucophage 500 MG 1 tab Orally once a day x2 500 Not-Taking Ambrisentan 5 MG 1 tablet Orally Once a day for 30 day(s) Not-Taking Benicar 20 MG Orally Not-Rober sanchez hydroCHLOROthiazide 12.5 MG 1 capsule in the morning Orally Once a day for 30 day(s) Not-Taking Extra Depth Orthopedic Shoes (1 Pair) with Customized Heat Molded Multidensity Innersoles (3 Pair) as directed Dx: NIDDM/Polyneuropath y (E11.42), Hammertoe Foot Deformity (M20.41,M20.42), Preulcerative Skin Lesion(s) (L85.1 10/27/2019 Not-Taking Ferrous Gluconate No t-Taking traMADol HCl 50 MG 1 tablet as needed Orally Every 6 hours as need for pain for 7 days 06/26/2022 Not-Taking Ibuprofen 800 MG 1 tablet Orally Three times a day for 7 days 06/26/2022 Not-Taking Trulicity 3 MG/0.5ML as directed Subcutaneous Not-Taking Cephalexin 500 MG 1 capsule Orally every 12 hrs for 7 days Not-Taking Questran 2 Scoops a day Not-Taking Santyl 250 UNIT/GM 1 application to affected area Externally to Foot Ulcer Once a day to wound 0.5 cm x 0.5 cm x 0.3 cm left 5th toe for 30 days 11/07/2023 Not-Taking Doxycycline Monohydrate 100 MG 1 tablet Orally Twice a day for 7 days 12/02/2023 Not-Taking Keflex 500 MG 1 capsule Orally every 12 hrs for 5 days 07/16/2023 Not-Taking Amitriptyline HCl 25 MG 1 tablet at bedt dayana Orally Once a day for 30 day(s) Not-Taking Extra Depth Orthopedic Shoes (1 Pair) with Customized Heat Molded Multidensity Innersoles (3 Pair) as directed Dx: NIDDM/Polyneuropath y (E11.42), Hammertoe Foot Deformity (M20.41,M20.42), Preulcerative Skin Lesion(s) (L85.1 10/12/2022 Not-Taking Amoxicillin last one taken today 10/23/24 Not-Taking PriLOSEC Not-Taking Cephalexin 500 MG 1 capsule Orally every 12 hrs for 7 days 1 more Not-Taking Extra Depth Orthopedic Shoes (1 Pair) with Customized Heat Molded Multidensity Innersoles (3 Pair) as directed Dx: NIDDM/Polyneuropath y (E11.42), Hammertoe Foot Deformity (M20.41,M20.42), Preulcerative Skin Lesion(s) (L85.1 11/07/2023 Active Pantoprazole Sodium 40 MG 1 tablet Orall y Once a day Active Jardiance 25 MG 1 tablet Orally Once a day for 30 days Active Metoprolol Succinate 50 MG 1 capsule Orally Once a day for 30 day(s) Active Lasix 40 MG Orally Active Atorvastatin Calcium 80 MG 1 tablet Orally Once a day for 30 day(s) Active Norvasc 5 MG Orally Once a day Active Finasteride 5 MG 1 tablet Orally Once a day Active Lopressor 100 MG Orally Twice a day Active Isosorbide Mononitrate 120 1 tablet once a day Active aspirin baby Active Lyrica 75 MG 1 capsule Orally Once a day x3 a day Active Flomax Active CoQ-10 Active Citalopram Hydrobromide 10 MG Orally Active amLODIPine Besylate 2.5 MG 1 tablet Orally Once a day Active Dicyclomine HCl 10 MG 1 Orally once a day Active Ozempic Active Benefiber Active Centrum Silver Activ e Probiotic Active Lipitor 80 MG 1 tablet Orally Once a day Active Ferrous Gluconate 324 (37.5 Fe) MG 1 tablet Orally Active Social History Tobacco Use: Social History Observation Description Date Details (start date - stop date) Never Smoker NA - NA Tobacco use other than smoking: Question Answer Notes Are you an other tobacco user? No Tobacco Control (Standard) Question Answer Notes Tobacco use: Nonsmoker Additional Findings: Tobacco non-user Current no nsmoker Vital Signs Height 5ft 8in in 11/13/2024 Weight 183 lbs 11/13/2024 BMI 27.82 kg/m2 11/13/2024 Blood pressure systolic 120 mm Hg 11/14/19 25 Blood pressure diastolic 72 mm Hg 025 Encounters Encounter Location Date Provider Diagnosis [facility] [address] [address] 11/13/2024 Alpa Avelar Neuropathic ulcer of right foot, limited to breakdown of skin L97.511 ; Hammer toe of right foot M20.41 ; Type 2 diabetes mellitus with diabetic polyneuropathy E11.42 and Other hammer toe(s) (acquired), left foot M20.42 Assessments Encounter Date Diagnosis (ICD Code) Assessment Notes Treatment Notes Treatment Clinical Notes Section Notes 11/13/2024 Neuropathic ulcer of right foot, limited to breakdown of skin (ICD-10 - L97.511) 11/13/2024 Hammer toe of right foot (ICD-10 - M20.41) 11/13/2024 Type 2 diabetes mellitus with diabetic polyneuropathy (ICD-10 - E11.42) 11/13/2024 Other hammer toe(s) (acquired), left foot (ICD-10 - M20.42) 11/13/2024 Other Plan Of Treatment Next Appt Details Follow Up: 4 Weeks, Reason: Provider Name:Alpa phan, 01/13/2025 11:30:00 AM, [address] [place], [address], Progress Notes * Chris MADRIGAL MDOB:[birth year] (79 yo M)Acc No.[id number]:11/13/2024 Progress Notes Patient:?Chris MADRIGAL Bobby Provider:?Alpa Avelar DPM :1945???Age:79 Y???Sex:Male Virgil e:11/13/2024 Address:[address] [place], [place] [id number] Pcp:Jalil Ryan MD Subjective: * Chief Complaints: * ???Open sore * HPI: ???Skin problems:?Location:?2nd, Toe(s), Right.?Duration:?a few weeks.?Course:?improved.?Treatments:?Keflex, mupiricin ,medihoney?Local care consisting of daily? wound cleanse, topical antibiotic as recommended, application of sterile dressing, offloading/pressure reduction via rest.? * ROS:?General/Constitutional:?Nausea?denies.?Vomiting?denies.?Hunger Thirst?denies.?Loss appetite?denies.?Chills?denies.?Fatigue?denies.?Fever?denies.?Night Sweats?denies.?Unexplained weight loss?denies.?Unexplained weight gain?denies.?HEENTM:?Dentures?denies.?Dizziness?denies.?Glasses/contacts?denies.?Retinopathy?den ies.?Blurred/double vision?denies.?TMJ?denies.?Discharge/drainage?denies.?Implants?denies.?Sore throat?denies.?Dental implants?denies.?Hard of hearing ?denies.?Difficulty chewing/swallowing/speaking?denies.?Nose bleeds?denies.?Sore mouth?denies.?Respiratory:?On O xygen?denies.?Pneumonia/pleurisy?denies.?Bronchitis?denies.?Emphysema?denies.?Co ughing?denies.?Cough blood?denies.?Shortness of breath?denies.?Wheezing?denies.?Cardiovascular:?Pacemaker?denies.?MVP?denies.?WPW?denies.?CHF?denies.?Heart attack?denies.?Septal defect?denies.?Rapid beat?denies.?Chest pain ?denies.?Atrial Fib.?denies.?Murmur/Palpitations?denies.?Gastrointestinal:?Hemorrhoids?denies.?Stomach/Abdominal pain?denies.?Dark blood stool?denies.?Irritable bowel ?denies.?Constipation?denies.?Diarrhea?denies.?Hematology:?Swelling?denies.?Clots?denies.?Varicose Veins?denies.?Bruising?admits.?Bleeding problem?admits.?Genitourinary:?Blood urine?denies.?Frequent/Painfu/urination/bladder control?denies.?Kidney stones?denies.?Infection (UTI)?denies.?Nephropathy?denies.?sex trans dis (STD)?denies.?Prostate?denies.?Musculoskeletal:?Hammertoes?admits.?Bunions?denies.?Back Pain?denies.?Muscle Cramps/ Resting?denies.?Muscle cramps / walking?denies.?Generalized aches and pains?denies.?Weakness?denies.?Integ.:?Ferrari?denies.?Scars?denies.?Corns/calluses?admits.?Ingrown nails?denies.?Painful nails?denies.?Open Sores?denies.?Rashes?denies.?Neurologic:?Difficulty sleeping?denies.?Brain disorder?denies.?Numbness?admits.?Balance t rouble?denies.?Confusion?denies.?Fainting/blackouts?denies.?Tingling?admits.?Zachary mors?denies.? * Medical History:? * Surgical History:?Stent gall bladder hernias cardiac catheterization 05/07/2019knee surgery- tore ACL and left Meniscus repair 02/08/20Cataract-Right 05/06/2020Cataract surgery left eye 05/20/20checked the pressure in the right side of heart il hammer toe etina surgery 05/09/2023 * Hospitalization/Major Diagno stic Procedure:?[facility]/ Dehydration 07/19/22[facility]- wound infection 02/27/24urgent care- toe 10/13/24 * Family History:?Mother: dece ased, heart attack, diagnosed with Other malignant neoplasm of unspecified site, Unspecified essential hypertension, Unspecified heart disease.?Father: , heart attack, diagnosed with Diabetic - NIDDM, Unspecified essential hypertension, Unspecified heart disease.?Spouse: alive.? * Social History:?Tobacco Use:?Tobacco use other than smoking?Are you an other tobacco user??No ?Tobacco Control (Standard)?Tobacco use:?Nonsmoker ?Additional Findings: Tobacco non-user?Current nonsmoker ???Miscellaneous:?Caffeine: yes, 1 cup occassionally. ?Children: yes. ?Exercise: yes, sports, ashley, walking. ?Marital status: . 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 * Medications:?TakingFerrous G luconate 324 (37.5 Fe) MG Tablet 1 tablet Orally Lipitor 80 MG Tablet 1 tablet Orally Once a day Probiotic Centrum Silver Benefiber Dicyclomine HCl 10 MG Capsule 1 Orally once a day amLODIPine Besylate 2.5 MG Tablet 1 tablet Orally Once a day Ozempic CoQ-10 Lyrica 75 MG Capsule 1 capsule Orally Once a day , Notes to Pharmacist: x3 a dayaspirin [...] Sprinkle 1 capsule Orally Once a day Jardiance 25 MG Tablet 1 tablet Orally Once a day Pantoprazole Sodium 40 MG Tablet Delayed Release 1 tablet Orally Once a day Extra Depth Orthopedic Shoes (1 Pair) with Customized Heat Molded Multidensity Innersoles (3 Pair) as directed Dx: NIDDM/Polyneuropathy (E11.42), Hammertoe Foot Deformity (M20.41,M20.42), Preulcerative Skin Lesion(s) (L85.1 Lasix 40 MG Tablet Orally Taking Ferrous Gluconate 324 (37.5 Fe) MG Tablet 1 tablet Orally Taking Lipitor 80 MG Tablet 1 tablet Orally Once a day Taking Probiotic Taking Centrum Silver Taking Benefiber Taking Dicyclomine HCl 10 MG Capsule 1 Orally once a day Taking amLODIPine Besylate 2.5 MG Tablet 1 tablet Orally Once a day Taking Ozempic Taking CoQ-10 Taking Lyrica 75 MG Capsule 1 capsule Orally Once a day , Notes to Pharmacist: x3 a dayTaking [...] 1 capsule Orally Once a day Taking Jardiance 25 MG Tablet 1 tablet Orally Once a day Taking Pantoprazole Sodium 40 MG Tablet Delayed Release 1 tablet Orally Once a day Taking Extra Depth Orthopedic Shoes (1 Pair) with Customized Heat Molded Multidensity Innersoles (3 Pair) as directed Dx: NIDDM/Polyneuropathy (E11.42), Hammertoe Foot Deformity (M20.41,M20.42), Preulcerative Skin Lesion(s) (L85.1 Taking Lasix 40 MG Tablet Orally Not-Taking/PRNAmoxicillin , Notes to Pharmacist: last one taken today 10/23/24Extra Depth Orthopedic Shoes (1 Pair) with Customized Heat Molded Multidensity Innersoles (3 Pair) as directed Dx: NIDDM/Polyneuropathy (E11.42), Hammertoe Foot Deformity (M20.41,M20.42), Preulcerative Skin Lesion(s) (L85.1 Cephalexin 500 MG Capsule 1 capsule Orally every 12 hrs , Notes to Pharmacist: 1 morePriLOSEC Amitriptyline HCl 25 MG Tablet 1 tablet [...] Solution Pen-injector as directed Subcutaneous Ferrous Gluconate Extra Depth Orthopedic Shoes (1 Pair) with [...] List reviewed and reconciled with the patientNot-Taking/PRN Amoxicillin , Notes to Pharmacist: last one taken today 10/23/24Not-Taking/PRN Extra Depth Orthopedic Shoes (1 Pair) with Customized Heat Molded Multidensity Innersoles (3 Pair) as directed Dx: NIDDM/Polyneuropathy (E11.42), Hammertoe Foot Deformity (M20.41,M20.42), Preulcerative Skin Lesion(s) (L85.1 Not-Taking/PRN Cephalexin 500 MG Capsule 1 capsule Orally every 12 hrs , Notes to Pharmacist: 1 moreNot-Taking/PRN PriLOSEC Not-Taking/PRN Amitriptyline HCl 25 MG Tablet 1 tablet at bedtime Orally Once a day Not-Taking/PRN Questran , Notes to Pharmacist: 2 Scoops a [...] capsule Orally every 12 hrs Not- Taking/PRN Trulicity 3 MG/0.5ML Solution Pen-injector as directed Subcutaneous Not- Taking/PRN Ferrous Gluconate Not-Taking/PRN Extra Depth Orthopedic Shoes (1 Pair) [...] Verified] Objective: * Vitals:?Ht: 5ft 8in, Wt: 183 , BMI: 27.82, Shoe size: 9.5, BP: 120/72 mm Hg, BS: 148, Ht-cm: 172.72 cm, Wt-k.01 kg. * ???Past Orders: ???Lab:HEMOGLOBIN A1C (GLYCO HEMOGLOBIN) (Order Date - 07/19/2024) (Collection Date & Time - 07/19/2024 09:10 AM) ? Value Reference Range ?HEMOGLOBIN A1C % (HH) 6.7 * Examination: ???Ophthalmology Referral: ?DIABETES EYE EXAM?Procedure Performed:?Yes ?Date of Exam Performed?04/19/2024 ?Findings of Diabetic Eye Exam:?no retinopathy?Dermatologic: ?SKIN FINDINGS:?Skin exam reveals Keratotic lesion(s) located at , Medial plantar, TA , T5 , SUB MTH (s) , 1 , B/L, Plantar Heel(s), B/L, , Dorsal, PIPJ, T4; small blister dorsal PIPJ T3 without infection.?ULCER:?LOCATION, medial PIPJ T6 -resolved.?Neurological: ?SENSORY:? Neurological exam demonstrates, reduced light touch sensation, reduced sharp/dull pin prick discrimination , B/L, 5.07 monofilament test performed at plantar aspects of 5 varied sites per foot shows sensation, reduced , B/L.?Vascular: ?DP PULSES (B):?3/4, B/L.?PT PULSES (B):?3/4, B/L.?CAPILLARY FILL TIME:?immediate, all digits, B/L.?TROPHIC CONDITION-TEXTURE/ELASTICITY/TURGOR/HAIR GROWTH (B):?normal, B/L.?TEMPERTURE GRADIENT (C):?normal, warm to cool, proximal to distal, B/L, B/L.?General Examination: ?GENERAL APPEARANCE:?Reveals a pleasant, alert, well nourished, well- developed, well hydrated individual, who demonstrates proper attention to hygiene/body habitus, and is in no acute distress, Pt serves as own historian for office visit today.?ORIENTED:?person, place, and time.?FOOT EXAM:?Lower Extremity Neurological Exam performed:?Yes ?Visual exam of foot performed:?Yes ?Date?11/13/2024 ?Footwear Evaluation?Footwear Evaluation performed:?Yes?Orthopedic: ?MUSCLE STRENGTH:?5/5 all groups in a symmetrical fashion, B/L.?BUNION:?Medially prominent 1st MPJ , B/L , Lateral tracking 1st MPJ nonreducible.?DIGITAL DEFORMITIES:?Digital contracture, PIPJ, 2-5 B/L, incompl-reducible to push-up test, no over, nor underlapping, with evidence of shoe producing skin irritation.? Assessment: * Assessment: 1.?Hammer toe of right foot - M20.41 (Primary)???2.?Neuropathic ulcer of right foot, limited to breakdown of skin - L97.511???3.?Type 2 diabetes mellitus with diabetic polyneuropathy - E11.42???4.?Other hammer toe(s) (acquired), left foot - M20.42??? Plan: * Treatment: * Procedure Codes:? * Preventive Medicine:? ??Counseling:?Discussion:?-13: Office or other [...] success were answered to their verbally confirmed satisfaction.?Shoe Gear Counseling:?The patient and I reviewed the types of shoes they should be wearing. My recommendation included obtaining a well-fitted shoe with a good supportive, non-foldable nor twistable sole, plenty of toe/room for the forefoot, and proper arch support. Based on todays examination, I recommended the patient look for new shoes, by having their feet professionally measured. We discussed that generally the best time of the day for a shoe fitting is the afternoon. Different shoes types and brands to best match the patients occupation and vocation were discussed. Specific brand selection will be up to the patient, their individual foot condition/deformities, and fit. The patient and I reviewed the standard new shoe break in period by wearing them for a few hours a day while checking for redness or sores as wear time is increased. The patient verbally confirmed to understanding the information discussed.? ??Screening/Special Tests:?Fall Risk?Assessment:?Performed ?Plan of Care:?Documented ?Type of fall plan of care:?Balance, strength and gait training or instruction provided ?Screening:?One fall with injury in the past year ?FALLS: Screening for Future Fall Risk?Have you had two or more falls in the past year??No ?Have you had any falls with injury in the past year??Yes * Follow Up:?4 Weeks * Images: * Sign off status: Completed true * Provider:?Alpa Avelar DPM Date:? Generated for Candace prieto/Naveed/Topher on:?12/30/2024 08:34 AM EDT History and Physical Notes * HPI (History of Present Illness) Category Sub-Category Detail Notes Category Not es Skin problems Location: 2nd, Toe(s), Right Duration: a few weeks Course: improved Treatments: Keflex, mupiricin ,m edihoney Local care consisting of daily wound cleanse, topical antibiotic as recommended, application of sterile dressing, offloading/pressure reduction via rest Examination Category Sub-Category Detail Notes Category Not es Neurological SENSORY: Neurological exa m demonstrates, reduced light touch sensation, reduced sharp/dull pin prick discrimination , B/L, 5.07 monofilament test performed at plantar aspects of 5 varied sites per foot shows sensation, reduced , B/L Dermatologic SKIN FINDINGS: Skin exam reveal s Keratotic lesion(s) located at , Medial plantar, TA , T5 , SUB MTH (s) , 1 , B/L, Plantar Heel(s), B/L, , Dorsal, PIPJ, T4; small blister dorsal PIPJ T3 without infection ULCER: LOCATION, medial PIP J T6 -resolved Orthopedic BUNION: Medially promine nt 1st MPJ , B/L , Lateral tracking 1st MPJ nonreducible DIGITAL DEFORMITIES: Digital contracture , PIPJ, 2-5 B/L, incompl-reducible to push-up test, no over, nor underlapping, with evidence of shoe producing skin irritation MUSCLE STRENGTH: 5/5 all groups in a symmetrical fashion, B/L General Examination GENERAL APPEARANCE: Reveals a pleasant, alert, well nourished, well-developed, well hydrated individual, who demonstrates proper attention to hygiene/body habitus, and is in no acute distress, Pt serves as own historian for office visit today FOOT EXAM: Lower Extremity Neurological Exa m performed:: Yes Visual exam of foot performed:: Yes Date: 11/13/2024 ORIENTED: person, place, and t dayana Footwear Evaluation Footwear Evaluation performe d:: Yes Ophthalmology Referral DIABETES EYE EXAM Procedure Perform ed:: Yes ?Date of Exam Performed: 04/19/2024 Findings of Diabetic Eye Exam:: no retin opathy Vascular DP PULSES (B): 3/4, B/L PT PULSES (B): 3/4, B/L CAPILLARY FILL TIME: immediate, all digi ts, B/L TEMPERTURE GRADIENT (C): normal, warm to cool, proximal to distal, B/L, B/L TROPHIC CONDITION-TEXTURE/ELASTICITY/TURGOR/HAIR GROWTH (B): normal, B/L
--- OUTSIDE RECORDS SUMMARY | 2024-12-30 08:35 | XMS_ITS | Encounter Summary ---
Author Organization [facility] Address [address] [facility] [address] [place] [address] Phone Care Team Providers Care Cable Rigger Name Role Phone Jalil Ryan MD Primary Care Provider [phone] Encounter Details Date Type Department Care Team (Late st Contact Info) Description 02/17/2021 Orders Only [facility] [address] [place] [address] Jovani Oneill MD Hypertensive chronic kidney disease, unspecified, with chronic kidney disease stage I through stage IV, or unspecified Social History Tobacco Use Types Packs/Day Years Used Date Smoking Tobacco: Never Alcohol Use Standard Drinks/Week Comments No 0 (1 standard drink = 0.6 oz pur e alcohol) Sex and Gender Information Value Date Recorded Sex Assigned at Not on file Legal Sex Male 5:02 PM EST Gender Identity Not on file Sexual Orientation Not on file documented as of this encounter Plan of Treatment Not on file documented as of this encounter Visit Diagnoses Diagnosis Hypertensive chronic kidney disease, unspecified, with chronic kidney disease stage I through stage IV, or unspecified documented in this encounter Care Teams Cable Rigger Relationship Specialty Start Date End Date Jalil Ryan MD [address] [place] [address] [address] [place] PCP - General Internal Medicine 01/25/21 documented as of this encounter
--- OUTSIDE RECORDS SUMMARY | 2024-12-30 08:35 | XMS_ITS ---
Author Organization [facility] Address [address] [place] [address] Care Team Providers Care Assembler Bicycle Name Role Phone Connor CARDENAS, Jalil Primary Care Provider UnavailAlpa Carreon Unavailable [phone] Allergies Allergen (clinical drug ingredient) Drug/Non Drug Allergy documented on EMR Reaction Allergy Type Onset Date Status meperidine Demerol itch Drug Allergy Active REASON FOR VISIT Open sore, At Risk Footcare Medications Medication SIG (Take, Route, Frequency, Duration) Notes Start Date End Date Status Simvastatin 40 MG Orally No t-Taking Gabapentin Not-Takin g Voltaren 1 % as directed Transdermal Apply to affected area(s) four times a day for 30 days 01/07/2019 Not-Taking Omeprazole Not-Takin g Prilosec Not-Taking Ambrisentan 5 MG 1 tablet Orally Once a day for 30 day(s) Not-Taking hydroCHLOROthiazide 12.5 MG 1 capsule in the morning Orally Once a day for 30 day(s) Not-Taking Glucophage 500 MG 1 tab Orally once a day x2 500 Not-Taking Physical Therapy . . . 2-3x/week for 3-4 weeks 07/17/2022 Not-Taking Benicar 20 MG Orally Not-Ta laura Trulicity 3 MG/0.5ML as directed Subcutaneous Not-Taking Ferrous Gluconate No t-Taking Extra Depth [...] for pain for 7 days 06/26/2022 Not-Taking Santyl 250 UNIT/GM 1 application to affected area Externally to Foot Ulcer Once a day to wound 0.5 cm x 0.5 cm x 0.3 cm left 5th toe for 30 days 11/07/2023 Not-Taking Cephalexin 500 MG 1 capsule Orally every 12 hrs for 7 days Not-Taking Keflex 500 MG 1 capsule Orally every 12 hrs for 5 days 07/16/2023 Not-Taking Questran 2 Scoops a day Not-Taking Doxycycline Monohydrate 100 MG 1 tablet Orally Twice a day for 7 days 12/02/2023 Not-Taking Extra Depth Orthopedic Shoes (1 Pair) with Customized Heat Molded Multidensity Innersoles (3 Pair) as directed Dx: NIDDM/Polyneuropath y (E11.42), Hammertoe Foot Deformity (M20.41,M20.42), Preulcerative Skin Lesion(s) (L85.1 11/07/2023 Active Lasix 40 MG Orally Active Cephalexin 500 MG 1 capsule Orally every 12 hrs for 7 days 1 more Not-Taking PriLOSEC Not-Taking Amitriptyline HCl 25 MG 1 tablet at bedt dayana Orally Once a day for 30 day(s) Not-Taking Extra Depth Orthopedic Shoes (1 Pair) with Customized Heat Molded Multidensity Innersoles (3 Pair) as directed Dx: NIDDM/Polyneuropath y (E11.42), Hammertoe Foot Deformity (M20.41,M20.42), Preulcerative Skin Lesion(s) (L85.1 10/12/2022 Not-Taking Jardiance 25 MG 1 tablet Orally Once a day for 30 days Active Pantoprazole Sodium 40 MG 1 tablet Orall y Once a day Active Atorvastatin Calcium 80 MG 1 tablet Orally Once a day for 30 day(s) Active Metoprolol Succinate 50 MG 1 capsule Orally Once a day for 30 day(s) Active Citalopram Hydrobromide 10 MG Orally Active Finasteride 5 MG 1 tablet Orally Once a day Active Isosorbide Mononitrate 120 1 tablet once a day Active Lopressor 100 MG Orally Twice a day Active Norvasc 5 MG Orally Once a day Active Lyrica 75 MG 1 capsule Orally Once a day x3 a day Active aspirin baby Active Flomax Active Ozempic Active CoQ-10 Active Probiotic Active Centrum Silver Activ e Benefiber Active Dicyclomine HCl 10 MG 1 Orally once a day Active amLODIPine Besylate 2.5 MG 1 tablet Orally Once a day Active Amoxicillin last one taken today 10/23/24 Not-Taking Ferrous Gluconate 324 (37.5 Fe) MG 1 tablet Orally Active Lipitor 80 MG 1 tablet Orally Once a day Active Social History Tobacco Use: Social History Observation Description Date Details (start date - stop date) Never Smoker NA - NA Tobacco use other than smoking: Question Answer Notes Are you an other tobacco user? No Tobacco Control (Standard) Question Answer Notes Tobacco use: Nonsmoker Additional Findings: Tobacco non-user Current no nsmoker Vital Signs Height 5ft 8in in 11/03/2024 Weight 183 lbs 11/03/2024 BMI 27.82 kg/m2 11/03/2024 Encounters Encounter Location Date Provider Diagnosis [facility] [address] [place] [address] 11/03/2024 Alpa Avelar Type 2 diabetes mellitus with diabetic polyneuropathy E11.42 ; Neuropathic ulcer of right foot, limited to breakdown of skin L97.511 ; Tinea unguium B35.1 and Hammer toe of right foot M20.41 Assessments Encounter Date Diagnosis (ICD Code) Assessment Notes Treatment Notes Treatment Clinical Notes Section Notes 11/03/2024 Type 2 diabetes mellitus with diabetic polyneuropathy (ICD-10 - E11.42) 11/03/2024 Neuropathic ulcer of right foot, limited to breakdown of skin (ICD-10 - L97.511) 11/03/2024 Tinea unguium (ICD-10 - B35.1) 11/03/2024 Hammer toe of right foot (ICD-10 - M20.41) 11/03/2024 Other Patient Educated with: WOUND CARE INSTRUCTIONS. pdf (WOUND CARE INSTRUCTIONS. pdf) Plan Of Treatment Treatment Notes Assessment Notes Other Patient Educated wit h: WOUND CARE INSTRUCTIONS.pdf (WOUND CARE INSTRUCTIONS.pdf) Next Appt Details Follow Up: 2 Weeks, Reason: Provider Name:Alpa Valdez Em emilie, 01/13/2025 11:30:00 AM, [address] [place] [address], [id number], Procedure Notes * Category Sub-Category Detail Notes [...] use of a nail nipper and/or dremel-type tool grinder operator external, to a more viable healthy nail plate [...] to maintain effectiveness in symptomatic relief - 40789 Debride skin< 25 sq cm Open wound NEUROPATH Y: Physician of record performed open wound selective debridement of first 25 sq cm or less, of devitilized necrotic/nonviable soft tissue, fibrin, and exudate extending from the epidermis through the dermis, utilizing sharp dissection with sterile 15 blade, and/or tissue nippers. Hemostasis was controlled through direct pressure. Sterile antibiotic dressing applied, ANESTHESIA was not required due to presence of NEUROPATHY. Post debridement measurements: 3 mm x 2 mm x 2 mm. Character of the wound post debridement is stable (03311), The patient was instructed on importance of proper wound care consisting of pressure reduction, maintainance of moist wound environment, and regular debridement of devitilized tissue, The patient is to cleanse the wound with warm soapy water/peroxide/saline or betadine BID based on product availability, The patient is to apply Medihoney to the wound and cover with a DSD, The patient was instructed to change dressings according to orders or PRN saturation, leaks, The patient was instructed to monitor and report any signs or symptoms of infection or any untoward reactions, The patient is to cont the local wound care as directed Keratoma Treatment Parring or Cutting o f [...] instrumentation by the physician of record - 77354 Progress Notes * Chris MADRIGAL MDOB:[birth year] (79 yo M)Acc No.[id number]:11/03/2024 Progress Note Patient:?KAITLINChris RUDD Provider:?Alpa Avelar DPM :1945???Age:79 Y???Sex:Male Virgil e:11/03/2024 Address:[address] [place], [place] [id number] Pcp:Jalil Ryan MD Subjective: * Chief Complaints: * ???Open soreAt Risk Footcare * HPI: ???Skin problems:?Location:?2nd, Toe(s), Right.?Duration:?a few weeks.?Course:?improved.?Treatments:?Keflex, mupiricin , Local care consisting of daily? wound cleanse, topical antibiotic as recommended, application of sterile dressing, offloading/pressure reduction via rest.?At Risk footcare:?Pt States Last PCP Visit:?Date?08/04/2024 * [...] right side of heart il hammer toe 2Retina surgery 05/09/2023 * Hospitalization/Major Diagno stic Procedure:?[facility]/ Dehydration [facility] 02/27/24urgent care- toe 10/13/24 * [...] (Standard)?Tobacco use:?Nonsmoker ?Additional Findings: Tobacco non-user?Current nonsmoker ???Drugs/Alcohol:?Drugs?Have you used drugs other than those for medical reasons in the past 12 months??No ???Miscellaneous:?Caffeine: yes, 1 cup occassionally. ?Children: yes. [...] day , Notes to Pharmacist: x3 a j [...] 183 , BMI: 27.82, Shoe size: 9.5, BS: 120, Ht-cm: 172.72 cm, Wt-k.01 kg. * ???Past Orders: ???Lab:HEMOGLOBIN A1C (GLYCO HEMOGLOBIN) (Order Date - 07/20/2024) (Collection Date & Time - 10/23/2024 11:13 AM) ? Value Reference Range ?HEMOGLOBIN A1C % (HH) 5.6 * Examination: ???Ophthalmology Referral: ?DIABETES EYE EXAM?Procedure Performed:?Yes ?Date of Exam Performed?04/30/2024 ?Diabetic Retinopathy Screening:?Yes ?Findings of Diabetic Eye Exam:?no retinopathy?Dermatologic: ?SKIN FINDINGS:?Skin exam reveals Keratotic lesion(s) located at , TA , T1 , T4 , T5 , SUB MTH (s) , 1 , B/L, Plantar Heel(s), B/L.?ULCER:?LOCATION, medial PIPJ T6?, SIZE, 3 mm X 2mm X 2mm, BASE, granular, RIM, hyperkeratotic, UNDERMINING, [...] T2, T3, T4, T5, T6, T7, T8, T9.?General Examination: ?GENERAL APPEARANCE:?Reveals a pleasant, alert, well nourished, well- developed, well hydrated individual, who demonstrates proper attention to hygiene/body habitus, and is in no acute distress, Pt serves as own historian for office visit today.?ORIENTED:?person, place, and time.?FOOT EXAM:?Lower Extremity Neurological Exam performed:?Yes ?Visual exam of foot performed:?Yes ?Date?11/03/2024 ?Footwear Evaluation?Footwear Evaluation performed:?Yes??? Assessment: * Assessment: 1.?Type 2 diabetes mellitus with diabetic polyneuropathy - E11.42???2.?Neuropathic ulcer of right foot, limited to breakdown of skin - L97.511 (Primary)???3.?Tinea unguium - B35.1???4.?Hammer toe of right foot - M20.41??? Plan: [...] use of a nail nipper and/or dremel-type tool grinder operator external, to a more viable healthy nail plate [...] to maintain effectiveness in symptomatic relief - 16633.?Debride skin< 25 sq cm:?Open wound?NEUROPATHY: Physician of record performed open wound selective debridement of first 25 sq cm or less, of devitilized necrotic/nonviable soft tissue, fibrin, and exudate extending from the epidermis through the dermis, utilizing sharp dissection with sterile 15 blade, and/or tissue nippers. Hemostasis was controlled through direct pressure. Sterile antibiotic dressing applied, ANESTHESIA was not required due to presence of NEUROPATHY. Post debridement measurements: 3 mm x 2 mm x 2 mm. Character of the wound post debridement is stable (61406), The patient was instructed on importance of proper wound care consisting of pressure reduction, maintainance of moist wound environment, and regular debridement of devitilized tissue, The patient is to cleanse the wound with warm soapy water/peroxide/saline or betadine BID based on product availability, The patient is to apply Medihoney to the wound and cover with a DSD, The patient was instructed to change dressings according to orders or PRN saturation, leaks, The patient was instructed to monitor and report any signs or symptoms of infection or any untoward reactions, The patient is to cont the local wound care as directed.?Keratoma Treatment:?Parring or Cutting of Benign Hyperkeratotic Lesion(s)?(-57) [...] sterile 15 blade, tissue nippers, and/or power Guides.comel instrumentation by the physician of record - 46911.? * Procedure Codes:?32119 TRIM SKIN LESIONS, OVER 4, Modifiers: XS 54216 DEBRIDE NAIL, 6 OR MORE, Modifiers: XS 78809 ACTIVE WOUND CARE/20 CM OR <, Modifiers: XS * Preventive Medicine:? ??Counseling:?Ulcer:?A detailed plan of care was reviewed with [...] availability. The patient is to apply ( Medihoney ) Antibiotic to the wound and cover [...] directed till completely healed.? ??Screening/Special Tests:?Fall Risk?Assessment:?Performed ?Plan of Care:?Documented ?Type of fall plan of care:?Balance, strength and gait training or instruction provided ?Screening:?One fall with injury in the past year ?FALLS: Screening for Future Fall Risk?Have you had two or more falls in the past year??No ?Have you had any falls with injury in the past year??Yes * Follow Up:?2 Weeks * Images: * Sign off status: Completed true * Provider:?Alpa Avelar DPM Date:? Generated for Candace prieto/Naveed/Topher on:?12/30/2024 08:35 AM EDT History and Physical Notes * HPI (History of Present Illness) Category Sub-Category Detail Notes Category Not es Skin problems Location: 2nd, Toe(s), Right Duration: a few weeks Course: improved Treatments: Keflex, mupiricin , Local care consisting of daily wound cleanse, topical antibiotic as recommended, application of sterile dressing, offloading/pressure reduction via rest At Risk footcare Pt States Last PCP Visit: Date: 4 Examination Category Sub-Category Detail Notes Category Not [...] 1 , B/L, Plantar Heel(s), B/L ULCER: LOCATION, medial PIP J T6 , SIZE, 3 mm X 2mm X 2mm, BASE, granular, RIM, hyperkeratotic, UNDERMINING, absent, TRACKING, eschar, DRAINAGE, none, NECROTIC TISSUE, -adherent, slough, MALODOR, absent, CALOR, absent, ERYTHEMA, absent General Examination GENERAL APPEARANCE: Reveals a pleasant, alert, well nourished, well-developed, well hydrated individual, who demonstrates proper attention to hygiene/body habitus, and is in no acute distress, Pt serves as own historian for office visit today FOOT EXAM: Lower Extremity Neurological Exa m performed:: Yes Visual exam of foot performed:: Yes Date: 11/03/2024 ORIENTED: person, place, and t dayana Footwear Evaluation Footwear Evaluation performe d:: Yes Ophthalmology Referral DIABETES EYE EXAM Procedure Perform ed:: Yes ?Date of Exam Performed: 04/30/2024 Diabetic Retinopathy Screening:: Yes Findings of Diabetic Eye Exam:: no retin [...]
--- OUTSIDE RECORDS SUMMARY | 2024-12-30 08:35 | XMS_ITS ---
Author Organization [facility] Address [address] [place] [address] Care Team Providers Care Tunnel Miner Name Role Phone Connor CARDENAS, Jalil Primary Care Provider Feliceab see Frausto Jr, Zurdo Martinez REASON FOR VISIT Patient presents today for diarrhea Encounters Encounter Location Date Provider Diagnosis [facility] [address] [address] 07/29/2024 Zurdo Frausto Jr Plan Of Treatment Next Appt Details Provider Name:Zurdo milian Jr, 11/24/2025 09:00:00 AM, [address] [place] [address], [place] [address], [place], [address], Progress Notes * MARIA LUZ BRIGHT MDOB:[birth year] (79 yo M)Acc No.[id number]:07/29/2024 Progress Notes Patient:?MARIA LUZ BRIGHT Provider:?Zurdo Frausto MD :1945???Age:78 Y???Sex:Male Virgil e:07/29/2024 Address:[address] [place], [place] [id number] Pcp:Jalil Ryan MD Subjective: * Chief Complaints: * ???1. Patient presents today for diarrhea. * Medical History:? Objective: * Vitals:? Assessment: Plan: * Treatment: * * The named appointment provid er may or may not be the originator of this progress note, and it is not deemed complete until electronically signed by the appointment provider. Sign off status: Pending * Provider:?Zurdo Frausto MD Date:?1 09/29/2023 Generated for Candace prieto/Naveed/Topher on:?12/30/2024 08:34 AM EDT
--- OUTSIDE RECORDS SUMMARY | 2024-12-30 08:36 | XMS_ITS | Clinical Summary ---
Author Organization [facility] Address [address] [place] [address] Phone Care Team Providers Care Aerospace Project Engineer Name Role Phone Jalil Ryan MD Primary Care Provider [phone] Allergies Active Allergy Reactions Criticality Noted Date Comments Meperidine Itching 05/13/2015 Meperidine Hcl Other (see comments) 10/31/2021 Medications aspirin (ST ROSIBEL) 81 MG EC tablet Take 1 tablet by mouth 1 (one) time each day Active cholestyramine (QUESTRAN) 4 g packet Active citalopram (CeleXA) 10 MG tablet Take 1 tablet by mouth 1 (one) time each day Active finasteride (PROSCAR) 5 MG tablet Take 1 tablet by mouth 1 (one) time each day Active furosemide (LASIX) 40 MG tablet Take 0.5 tablets by mouth 1 (one) time each day Active metFORMIN (GLUCOPHAGE) 500 MG tablet Take 500 mg by mouth 1 (one) time each day with breakfast Active metoprolol tartrate (LOPRESSOR) 100 MG tablet Take 1 tablet by mouth 2 (two) times a day Active pregabalin (LYRICA) 75 MG capsule Take 1 capsule by mouth in the morning and 1 capsule in the evening and 1 capsule before bedtime. Active isosorbide mononitrate (IMDUR) 120 MG 24 hr tablet 1 Active pantoprazole (PROTONIX) 40 MG EC tablet Take 40 mg by mouth 1 (one) time each day 1 Active Multiple Vitamin (MULTI-VITAMIN DAILY PO) Take by mouth Active co-enzyme Q-10 30 MG capsule Take 100 mg by mouth 1 (one) time each day Active Dulaglutide 3 MG/0.5ML solution pen-injector Inject 3 mL as directed 1 (one) time each day 2 Active atorvastatin (LIPITOR) 80 MG tablet TAKE 1 TABLET DAILY 90 tablet 3 2 Active amLODIPine (NORVASC) 5 MG tablet TAKE 1 TABLET DAILY 90 tablet 3 3 Active Active Problems Problem Noted Date Diagnosed Date Hypertensive renal disease 10/13/2020 Proteinuria 10/13/2020 Renal disorder due to type 2 diabetes mellitus 0 10/13/2020 Resolved Problems Problem Noted Date Diagnosed Date Resolved Date Chronic kidney disease stage 2 10/13/2020 05/08/2021 Immunizations Immunization Administration Dates Next Due Influenza Split High Dose Preservative Free IM 04/22/2019,05/05/2018,04/24/2017,2015 Family History Medical History Relation Comments Diabetes Father Heart disease Father Hypertension Father Heart disease Mother Hypertension Mother Relation Status Comments Father Mother Social History Tobacco Use Types Packs/Day Years Used Date Smoking Tobacco: Never Smokeless Tobacco: Never Tobacco Cessation:Counseling Given: Not Answered Alcohol Use Standard Drinks/Week Comments No 0 (1 standard drink = 0.6 oz pur e alcohol) Sex and Gender Information Value Date Recorded Sex Assigned at Not on file Legal Sex Male 5:02 PM EST Gender Identity Not on file Sexual Orientation Not on file Last Filed Vital Signs Vital Sign Reading Time Taken Comments Blood Pressure 122/68 02/11/2023 12:54 PM EDT Pulse 76 02/11/2023 12:54 PM EDT Temperature - - Respiratory Rate - - Oxygen Saturation 92% 02/11/2023 12:54 PM EDT Inhaled Oxygen Concentration - - Weight 82.8 kg (182 lb 9.6 oz) 02/11/2023 12:54 PM EDT Height 177.8 cm (5' 10 ) 02/11/2023 12:54 PM EDT Body Mass Index 26.2 02/11/2023 12:54 PM EDT Plan of Treatment Health Maintenance Due Date Last Done Comments Pneumococcal Vaccine: 50+ Years (1 of 2 - PCV) 1964 Diabetes: Hemoglobin A1C 09/19/2020 02/02/2020, 12/2 01/2019 Diabetes: Ophthalmology Exam 09/19/2020 Diabetes: Pedal Pulse Checked 09/19/2020 Diabetes: Sensory Foot Exam 09/19/2020 Diabetes: Visual Foot Exam 09/19/2020 Influenza Vaccine (Season Ended) 2025 05/23/2021, 03/29/2020, 05/01/2019, Additional history exists Hepatitis B Vaccine Aged Out No longe r eligible based on patient's age to complete this topic Procedures Procedure Name Priority Date/Time Associated Diagnosis Comments HEMOGLOBIN A1C Routine 02/02/2020 10:00 AM EDT from Last 3 Months or Most Recently Relevant to Health Maintenance Results * Hemoglobin A1c (02/02/2020 10:00 AM EDT) Hemoglobin A1C 6.4 % EVE Comment: ?Hemoglobin A1C Reference Range ? Adults: ??4.8 - 6.0 % ? Non diabetic: ??< 6.0 % ? Goal: ??< 7.0 % Additional Action Suggested: ??> 8.0 % Note: ??Hemoglobin A1c results are invalid for patients ? with abnormal amounts of HbF. ??Blood transfusions ? may impact the HbA1c concentration in the patient ? sample. Estimated Average Glucose 137 MG/DL EVE Comment: eAG = Estimated average glucose which is %A1C expressed as average glucose, using the formula of the W8M-Sifolmf Average Glucose study (ADAG), Diabetes Care, Vol.31,#8, Mar. 2007 02/02/2020 10:0 0 AM EDT us Hugo Reilly MD LAB BLOOD ORDERABLES Final Res ult EVE from Last 3 Months or Most Recently Relevant to Health Maintenance Insurance Medicare Medicare Care Teams Aerospace Project Engineer Relationship Specialty Start Date End Date Jalil Ryan MD [address] [place] [address] DR [address] LORI PRADO PCP - General Internal Medicine 01/25/21
--- OUTSIDE RECORDS SUMMARY | 2024-12-30 08:36 | XMS_ITS | Encounter Summary ---
Author Organization [facility] Address [address] [place] [address] Care Team Providers Care Client Services Director Name Role Phone Unavailable Primary Care Provider Unavailabl e Encounter Details Date Type Department Care Team (Late st Contact Info) Description 08/27/2024 Lab Requisition [facility] [address] [place] [address] Cash Cerna MD [address] [facility] [address] [place] [address] Malignant neoplasm of posterior wall of bladder (CMS/HCC V24, CMS/HCC V28); Personal history of malignant neoplasm of bladder Social History Tobacco Use Types Packs/Day Years Used Date Smoking Tobacco: Never Assessed Sex and Gender Information Value Date Recorded Sex Assigned at Not on file Legal Sex Male 4:05 PM EST Gender Identity Not on file Sexual Orientation Not on file documented as of this encounter Plan of Treatment Not on file documented as of this encounter Procedures Procedure Name Priority Date/Time Associated Diagnosis Comments AP OUTSIDE CONSULT Routine 08/18/2024 12 :00 AM EST Malignant neoplasm of posterior wall of bladder (CMS/HCC) Personal history of malignant neoplasm of bladder documented in this encounter Results * Anatomic pathology outside consult (08/18/2024 12:00 AM EST) Final Diagnosis A. Urine, Voided, ([id number]): Negative for high grade urothelial carcinoma. Scant urothelial cells. Results of [employer] fluorescence in situ hybridization (FISH) testing: CEP3: Normal CEP7: Normal CEP17: Normal LSI 9p21: Normal Interpretation: Normal profile Controls stained appropriately. Note: The results are intended as a screening device and should be interpreted in association with other clinical and pathological findings. 09/08/2024 9:02 AM EST [facility] Clinical Information History of bladder neoplasm (malignant) Z85.51 Malignant neoplasm of posterior C67.4 Cytology/FISH 09/08/2024 9:[address] [facility] Gross Description A. Urine, Voided, ([id number]): Received 1 TP (CYTO) 1 TP (FISH) 09/08/2024 9:[address] [facility] Disclaimer Unless otherwise specified, all tissue is 10% NB formalin fixed and paraffin embedded. Technical pathology services provided by [facility] at [address] [place] [address] [address], [place] [address] (CLIA #[id number]/Sari Looney MD, Clinical Asst) 09/08/2024 9:[address] [facility] Tissue Urine specimen from urethra / Unknown 08/18/2024 08/27/2024 4:10 PM EST us Cash Cerna MD LAB PATHOLOGY ORDERABLES Final Result [facility] [address] [place] [address], documented in this encounter Visit Diagnoses Diagnosis Malignant neoplasm of posterior wall of bladder (CMS/HCC V24, CMS/HCC V28) Malignant neoplasm of posterior wall of urinary bladder Personal history of malignant neoplasm of bladder documented in this encounter
--- OUTSIDE RECORDS SUMMARY | 2024-12-30 08:36 | XMS_ITS | Patient Health Record ---
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 Name Role Phone Connor CARDENAS, Jalil Primary Care Provider Alpa Murray Unavailable [phone] Allergies Allergen (clinical drug ingredient) Drug/Non Drug Allergy documented on EMR Reaction Allergy Type Onset Date Status meperidine Demerol itch Drug Allergy Active Results Component Value Reference Range Notes HEMOGLOBIN A1C (GLYCOHEMOGLO BIN) Reviewed date:04/03/2024 09:13:10 AM Interpretation: Performing Lab: Notes/Report: HEMOGLOBIN A1C % (HH) 6.2 HEMOGLOBIN A1C (GLYCOHEMOGLO BIN) Reviewed date:06/02/2024 10:36:26 AM Interpretation: Performing Lab: Notes/Report: TOTAL HEMOGLOBIN (HGBA1C) 6.0 HEMOGLOBIN A1C (GLYCOHEMOGLO BIN) Reviewed date:11/13/2024 09:11:16 AM Interpretation: Performing Lab: Notes/Report: HEMOGLOBIN A1C % (HH) 6.7 HEMOGLOBIN A1C (GLYCOHEMOGLO BIN) Reviewed date:10/23/2024 11:14:01 AM Interpretation: Performing Lab: Notes/Report: HEMOGLOBIN A1C % (HH) 5.6 HEMOGLOBIN A1C (GLYCOHEMOGLO BIN) Reviewed date:08/07/2024 10:21:31 AM Interpretation: Performing Lab: Notes/Report: TOTAL HEMOGLOBIN (HGBA1C) 6.7 HEMOGLOBIN A1C (GLYCOHEMOGLO BIN) Reviewed date:11/03/2024 10:59:20 AM Interpretation: Performing Lab: Notes/Report: HEMOGLOBIN A1C % (HH) 5.6 Reason For Referral No Information Medications Medication SIG (Take, Route, Frequency, Duration) Notes Start Date End Date Status aspirin baby Active Lyrica 75 MG 1 capsule Orally Once a day x3 a day Active Cephalexin 500 MG 1 capsule Orally every 12 hrs for 7 days Not-Taking Flomax Active amLODIPine Besylate 2.5 MG 1 tablet Orally Once a day Active Questran 2 Scoops a day Not-Taking Dicyclomine HCl 10 MG 1 Orally once a day Active Amitriptyline HCl 25 MG 1 tablet at bedt dayana Orally Once a day for 30 day(s) Not-Taking CoQ-10 Active Santyl 250 UNIT/GM 1 application to affected area Externally to Foot Ulcer Once a day to wound 0.5 cm x 0.5 cm x 0.3 cm left 5th toe for 30 days 11/07/2023 Not-Taking Ozempic Active Doxycycline Monohydrate 100 MG 1 tablet Orally Twice a day for 7 days 12/02/2023 Not-Taking Probiotic Active Extra Depth Orthopedic Shoes (1 Pair) with Customized Heat Molded Multidensity Innersoles (3 Pair) as directed Dx: NIDDM/Polyneuropath y (E11.42), Hammertoe Foot Deformity (M20.41,M20.42), Preulcerative Skin Lesion(s) (L85.1 10/12/2022 Not-Taking Omeprazole Not-Takin g Amoxicillin last one taken today 10/23/24 Not-Taking Voltaren 1 % as directed Transdermal Apply to affected area(s) four times a day for 30 days 01/07/2019 Not-Taking Benefiber Active PriLOSEC Not-Taking Centrum Silver Activ e Cephalexin 500 MG 1 capsule Orally every 12 hrs for 7 days 1 more Not-Taking Prilosec Not-Taking hydroCHLOROthiazide 12.5 MG 1 capsule in the morning Orally Once a day for 30 day(s) Not-Taking Lasix 40 MG Orally Active Gabapentin Not-Takin g Simvastatin 40 MG Orally No t-Taking Extra Depth Orthopedic Shoes (1 [...] . 2-3x/week for 3-4 weeks 07/17/2022 Not-Taking Norvasc 5 MG Orally Once a day Active Glucophage 500 MG 1 tab Orally once a day x2 500 Not-Taking Jardiance 25 MG 1 tablet Orally Once a day for 30 days Active Ambrisentan 5 MG 1 tablet Orally Once a day for 30 day(s) Not-Taking Metoprolol Succinate 50 MG 1 capsule Orally Once a day for 30 day(s) Active Benicar 20 MG Orally Not-Ta laura Finasteride 5 MG 1 tablet Orally Once a day Active Extra Depth Orthopedic Shoes (1 Pair) with Customized Heat Molded Multidensity Innersoles (3 Pair) as directed Dx: NIDDM/Polyneuropath y (E11.42), Hammertoe Foot Deformity (M20.41,M20.42), Preulcerative Skin Lesion(s) (L85.1 10/27/2019 Not-Taking Lipitor 80 MG 1 tablet Orally Once a day Active Citalopram Hydrobromide 10 MG Orally Active Ferrous Gluconate No t-Taking Lopressor 100 MG Orally Twice a day Active traMADol HCl 50 MG 1 tablet as needed Orally Every 6 hours as need for pain for 7 days 06/26/2022 Not-Taking Isosorbide Mononitrate 120 1 tablet once a day Active Ibuprofen 800 MG 1 tablet Orally Three times a day for 7 days 06/26/2022 Not-Taking Ferrous Gluconate 324 (37.5 Fe) MG 1 tablet Orally Active Trulicity 3 MG/0.5ML as directed Subcutaneous Not-Taking Keflex 500 MG 1 capsule Orally every 12 hrs for 5 days 07/16/2023 Not-Taking Immunizations Vaccine Route Administration Date Status Comme [...] Additional Findings: Tobacco non-user Current no nsmoker AUDIT-C (Standard) Question Answer Notes Did you have a drink containing alcohol in the p ast year? No Points 0 Interpretation Negative Problems Problem Type SNOMED Code ICD Code Onset Dates Problem Status W/U Status Risk Notes Problem Acquired hammer toe of right foot (0999683075334647) Other hammer toe(s) (acquired), right foot (M20.41) Active confirmed Problem Acquired hammer toe of left foot (0895743450521377) Other hammer toe(s) (acquired), left foot (M20.42) Active confirmed Problem Polyneuropathy due to type 2 diabetes mellitus (550547953) Type 2 diabetes mellitus with diabetic polyneuropathy (E11.42) Active confirmed Problem Polyneuropathy due to type 2 diabetes mellitus (949991092) Type 2 diabetes mellitus with diabetic polyneuropathy (E11.42) Active confirmed Problem [id number] Hallux valgus (acquired), left foot (M20.12) Active confirmed Problem 392759926702417 Hallux valgus (acquired), right foot (M20.11) Active confirmed Problem Acquired hammer toe of right foot (1374836363031597) Hammer toe of right foot (M20.41) Active confirmed Problem Acquired hammer toe of left foot (1570054763319119) Hammer toe of left foot (M20.42) Active confirmed Problem 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 (L97.521) Active confirmed Response to treatment Problem 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) Active confirmed Response to treatment Problem Neuropathic ulcer of right foot (disorder) (40310718248822182) Neuropathic ulcer of right foot, limited to breakdown of skin (L97.511) Active confirmed Response to treatment Problem 40429422988329416 Neuropathic fo ot ulcer, left, limited to breakdown of skin (L97.521) Active confirmed Problem Essential hypertension (02780628) Essential hypertension (I10) Active confirmed Vital Signs Blood pressure diastolic 72 mm Hg 11/13/2024 Height 5ft 8in in 11/13/2024 Blood pressure systolic 120 mm Hg 11/13/2024 Weight 183 lbs 11/13/2024 BMI 27.82 kg/m2 11/13/2024 Encounters Encounter Location Date Provider Diagnosis [address] [address] 01/14/2024 Alpa Avelar Type 2 diabetes mellitus with diabetic polyneuropathy E11.42 and Tinea unguium B35.[address] [address] 04/03/2024 Alpa Avelar Type 2 diabetes mellitus with diabetic polyneuropathy E11.42 ; Other hammer toe(s) (acquired), left foot M20.42 ; Tinea unguium B35.1 ; Other hammer toe(s) (acquired), right foot M20.41 ; 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 L97.521 ; Hallux valgus (acquired), left foot M20.12 and Hallux valgus (acquired), right foot M20.[address] [address] 06/02/2024 Alpa Perica Other hammer toe(s) (acquired), left foot M20.42 ; Hallux valgus (acquired), left foot M20.12 ; Type 2 diabetes mellitus with diabetic polyneuropathy E11.42 ; Tinea unguium B35.1 ; Other hammer toe(s) (acquired), right foot M20.41 and Hallux valgus (acquired), right foot M20.[address] [address] 07/24/2024 Alpa Perica Neurotrophic ulcer o f left foot limited to breakdown of skin L97.521 and Type 2 diabetes mellitus with diabetic polyneuropathy E11.[address] [address] 08/07/2024 Alpa Perica Neurotrophic ulcer o f left foot limited to breakdown of skin L97.521 ; Type 2 diabetes mellitus with diabetic polyneuropathy E11.42 ; Tinea unguium B35.1 ; Other hammer toe(s) (acquired), left foot M20.42 and Hammer toe of right foot M20.[address] [address] 10/23/2024 Alpa Avelar Neuropathic ulcer of right foot, limited to breakdown of skin L97.511 and Type 2 diabetes mellitus with diabetic polyneuropathy E11.[address] [address] 11/03/2024 Alpa Avelar Type 2 diabetes mellitus with diabetic polyneuropathy E11.42 ; Neuropathic ulcer of right foot, limited to breakdown of skin L97.511 ; Tinea unguium B35.1 and Hammer toe of right foot M20.[address] [facility] [address] 11/13/2024 Alpa Avelar Neuropathic ulcer of right foot, limited to breakdown of skin L97.511 ; Hammer toe of right foot M20.41 ; Type 2 diabetes mellitus with diabetic polyneuropathy E11.42 and Other hammer toe(s) (acquired), left foot M20.[address] [address] 01/15/2024 Alpa Avelar [facility] [address] 04/03/2024 Alpa Avelar [address] [address] 07/02/2024 Alpa Avelar [facility] [address] 07/31/2024 Alpa Avelar Cellulitis of toe of left foot L03.[address] [address] 07/31/2024 Alpa Avelar Cellulitis of toe of left foot L03.[address] [address] 10/13/2024 Alpa Avelar [facility] [address] 11/03/2024 Alpa Avelar Assessments Encounter Date Diagnosis (ICD Code) Assessment Notes Treatment Notes Treatment Clinical Notes Section Notes 01/14/2024 Type 2 diabetes mellitus with diabetic polyneuropathy (ICD-10 - E11.42) 01/14/2024 Tinea unguium (ICD-10 - B35.1) 04/03/2024 Other hammer toe(s) (acquired), left foot (ICD-10 - M20.42) 04/03/2024 Type 2 diabetes mellitus with diabetic polyneuropathy (ICD-10 - E11.42) 06/02/2024 Other hammer toe(s) (acquired), left foot [...] CARE INSTRUCTIONS. pdf (WOUND CARE INSTRUCTIONS. pdf) 10/23/2024 Neuropathic ulcer of right foot, limited to breakdown of skin (ICD-10 - L97.511) Response to treatment Patient Educated with: WOUND CARE INSTRUCTIONS. pdf (WOUND CARE INSTRUCTIONS. pdf) 11/03/2024 Type 2 diabetes mellitus with diabetic polyneuropathy (ICD-10 - E11.42) 11/03/2024 Neuropathic ulcer of right foot, limited to breakdown of skin (ICD-10 - L97.511) 11/13/2024 Hammer toe of right foot (ICD-10 - M20.41) 11/13/2024 Neuropathic ulcer of right foot, limited to breakdown of skin (ICD-10 - L97.511) 11/13/2024 Type 2 diabetes mellitus with diabetic polyneuropathy (ICD-10 - E11.42) 11/03/2024 Tinea unguium (ICD-10 - B35.1) 10/23/2024 Type 2 diabetes mellitus with diabetic polyneuropathy (ICD-10 - E11.42) 08/07/2024 Tinea unguium (ICD-10 - B35.1) 06/02/2024 Type 2 diabetes mellitus with diabetic polyneuropathy (ICD-10 - E11.42) 04/03/2024 Tinea unguium (ICD-10 - B35.1) 04/03/2024 Other hammer toe(s) (acquired), right foot (ICD-10 - M20.41) Patient Educated with: DIABETIC FOOT CARE INSTRUCTIONS. pdf (DIABETIC FOOT CARE INSTRUCTIONS. pdf) 06/02/2024 Tinea unguium (ICD-10 - B35.1) 08/07/2024 Other hammer toe(s) (acquired), left foot (ICD-10 - M20.42) 11/03/2024 Hammer toe of right foot (ICD-10 - M20.41) 11/13/2024 Other hammer toe(s) (acquired), left foot (ICD-10 - M20.42) 08/07/2024 Hammer toe of right foot (ICD-10 - M20.41) 04/03/2024 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 (ICD-10 - L97.521) Response to treatment Patient Educated with: WOUND CARE INSTRUCTIONS. pdf (WOUND CARE INSTRUCTIONS. pdf) 06/02/2024 Other hammer toe(s) (acquired), right foot (ICD-10 - M20.41) 04/03/2024 Hallux valgus (acquired), left foot (ICD-10 - M20.12) 06/02/2024 Hallux valgus (acquired), right foot (ICD-10 - M20.11) 04/03/2024 Hallux valgus (acquired), right foot (ICD-10 - M20.11) 06/02/2024 Other 11/03/2024 Other Patient Educated with: WOUND CARE INSTRUCTIONS. pdf (WOUND CARE INSTRUCTIONS. pdf) 11/13/2024 Other Plan Of Treatment Pending Test Test Name Order Date X ray : Foot, left 3V 11/29/2023 89974-ODYYPRI NAIL, 6 OR MORE 10/12/2022 34722-XOINZVG NAIL, 6 OR MORE 06/11/2018 54972-CQOWBZA NAIL, 6 OR MORE 09/17/2018 57175-SCJGMAS NAIL, 6 OR MORE 12/15/2018 47116-WQFVRQS NAIL, 1-5 02/06/2016 27419-Iwgd Destruction, 1-14 05/19/2018 52153-Lsgv Destruction, 1-14 06/11/2018 36313-NOWO SKIN LESIONS, OVER 4 10/12/19 23 76667-MCIO SKIN LESIONS, 2 TO 4 12/16/19 19 17896-UPGW SKIN LESIONS, 2 TO 4 06/11/20 18 70479-HRNX SKIN LESIONS, 2 TO 4 02/06/20 16 56300-NGOA SKIN LESIONS, 2 TO 4 09/17/19 19 I6184-YAJKLSPG DYSTROPHIC NAILS ANY # 23329-STDUAELB OF HEMATOMA/FLUID 023 89029,Y2506-KWI TENDON SHEATH/LIGAMENT 0 09/17/2018 23341,S9033-GXC TENDON SHEATH/LIGAMENT 0 12/15/2018 Next Appt Details Provider Name:Alpa phan, 01/13/2025 11:30:00 AM, [address] [facility], [place], [address], Insurance Providers Payer Name Payer Address Payer Phone Subscriber Number Group Number Insured Name Patient Relationship to Insured Coverage Start Date Coverage End Date Medicare National [employer] [address] [place] [address] [phone] [id number] Chris Dawson Self - patient is the insured [employer] [address] [place] [address] [id number] Chris Dawson Self - patient is the [...] Retina surgery 05/09/2023 Hospitalization History Reason Date(Month/Year) [facility]- wound infection 0 02/27/24 [facility]/ Dehydration 07/19/22 urgent care- toe 10/13/24
--- OUTSIDE RECORDS SUMMARY | 2024-12-30 08:36 | XMS_ITS ---
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 Name Role Phone Connor CARDENAS, Jalil Primary Care Provider UnavailZurdo Deras Jr Unavailable [phone] Allergies Allergen (clinical drug ingredient) Drug/Non Drug Allergy documented on EMR Reaction Allergy Type Onset Date Status meperidine Demerol Unknown Drug Allergy Active REASON FOR VISIT Patient presents today for DIARRHEA Medications Medication SIG (Take, Route, Frequency, Duration) [...] Once a day for 30 day(s) Active Social History Tobacco Use: Social History Observation Description Date Details (start date - stop date) Never Smoker NA - NA Tobacco Use/Smoking Question Answer Notes Patient is a nonsmoker Alcohol Screen Question Answer Notes Did you have a drink containing alcohol in the p ast year? No Points 0 Interpretation Negative Vital Signs Temperature 97.1 degrees Fahrenheit 10/30/19 24 Blood pressure systolic 000 mm Hg 10/30/19 24 Blood pressure diastolic 00 mm Hg 024 Height 68 in 10/30/2023 Weight 175 lbs 10/30/2023 BMI 26.61 kg/m2 10/30/2023 Encounters Encounter Location Date Provider Diagnosis [facility] [address] [facility] [address] [place] [address] 10/30/2023 Zurdo Frausto Jr Gastroesophageal reflux disease without esophagitis K21.9 ; Incontinence of feces, unspecified fecal incontinence type R15.9 and Diarrhea, unspecified type R19.7 Assessments Encounter Date Diagnosis (ICD Code) Assessment Notes Treatment Notes Treatment Clinical Notes Section Notes 10/30/2023 Gastroesophageal reflux disease without esophagitis (ICD-10 - K21.9) COVID-19 vaccines - what to expect material was printed We discussed gastroesophageal reflux disease today. We discussed diet, lifestyle modifications, and weight management. He will continue omeprazole for the present time. Diarrheal symptoms appear consistent with irritable bowel syndrome with diarrhea predominance. We discussed this today. We recommended he continue fiber supplementation. We discussed the treatment of gas with nsvs-omz-uyiyucn simethicone and anti-gas tablets. We gave him information on the FOD MAP diet, and he will continue Imodium and Pepto-Bismol for his symptoms. We discussed irritable bowel syndrome with diarrhea predominance today. Followup will be in one year. 10/30/2023 Incontinence of feces, unspecified fecal incontinence type (ICD-10 - R15.9) We discussed gastroesophageal reflux disease today. We discussed diet, lifestyle modifications, and weight management. He will continue omeprazole for the present time. Diarrheal symptoms appear consistent with irritable bowel syndrome with diarrhea predominance. We discussed this today. We recommended he continue fiber supplementation. We discussed the treatment of gas with xnpa-jaq-xiuxvda simethicone and anti-gas tablets. We gave him information on the FOD MAP diet, and he will continue Imodium and Pepto-Bismol for his symptoms. We discussed irritable bowel syndrome with diarrhea predominance today. Followup will be in one year. 10/30/2023 Diarrhea, unspecified type (ICD-10 - R19.7) We discussed gastroesophageal reflux disease today. We discussed diet, lifestyle modifications, and weight management. He will continue omeprazole for the present time. Diarrheal symptoms appear consistent with irritable bowel syndrome with diarrhea predominance. We discussed this today. We recommended he continue fiber supplementation. We discussed the treatment of gas with gltj-lxu-qmfydvg simethicone and anti-gas tablets. We gave him information on the FOD MAP diet, and he will continue Imodium and Pepto-Bismol for his symptoms. We discussed irritable bowel syndrome with diarrhea predominance today. Followup will be in one year. Plan Of Treatment Treatment Notes Assessment Notes Gastroesophageal reflux dise ase without esophagitis COVID-19 vaccines - what to expect material was printed Next Appt Details Follow Up: 1 Year, Reason: Provider Name:Zurdo milian , 11/24/2025 09:00:00 AM, [address] [place] [address], [address], [address], Progress Notes * MARIA LUZ BRIGHT MDOB:[birth year] (78 yo M)Acc No.[id number]:10/30/2023 Progress Notes Patient:?MARIA LUZ BRIGHT Provider:?Zurdo Frausto MD :[id number]???Age:78 Y???Sex:Male Virgil e:10/30/2023 Address:[address] [place], [place] [id number] Pcp:Jalil Ryan MD Subjective: * Chief Complaints: * ???1. Patient presents today for DIARRHEA. * HPI: ???New symptom(s):? The patient is a pleasant 78-year-old man seen today in followup. He was last seen for followup of diarrhea, incontinence, and reflux disease in March. Since that time he feels in general he somewhat better. He has excluded foods like garlic and fried foods with improvement in symptoms. He still does get occasional diarrhea. He uses Imodium and Pepto-Bismol to control his symptoms. He also has complaints of gas. * Medical History:?Diabetes me llitus type 2, Chronic kidney disease stage II, Pulmonary hypertension, Systemic hypertension, Bladder cancer, Coronary artery disease with stent placement, JACQUELIN/CPAP, MGUS, Hyperlipidemia, EGD/colonoscopy 11/06, gastric nodules, normal duodenal biopsies, gastric biopsy showed fundic gland polyp colonoscopy 2 tubular adenomas and normal random biopsies. * Surgical History:?prostatect faustino 10 years ago , Multiple hernia repairs , cholecystectomy , Cataract repairs . * Family History:?Father: dece ased, diagnosed with HTN (hypertension), Diabetes.?Mother: , diagnosed with HTN (hypertension).? No family history of colon cancer or liver cancer. * Social History:?Tobacco Use:?Tobacco Use/Smoking?Patient is a?nonsmoker.?Drugs/Alcohol:?Alcohol Screen?Did you have a drink containing alcohol in the past year??No,?Points?0,?Interpretation?Negative.?Miscellaneous:?Marital status: . Occupation: retired. * Medications:?Taking Ozempic (1 MG/DOSE) 4 MG/3ML Solution Pen-injector as directed Subcutaneous , Taking Benefiber Drink Mix - Packet as directed Orally , Taking Jardiance 10 MG Tablet 1 tablet Orally Once a day, Taking CoQ-10 100 MG Capsule as directed Orally , Taking Centrum Silver 50+Men - Tablet as directed Orally , Taking Probiotic - Tablet Chewable as directed Orally , Taking Ferrous Gluconate 324 (38 Fe) MG Tablet 1 tablet with water or juice between meals Orally Once a day, Taking Finasteride 5 MG Tablet 1 tablet Orally Once a day, Taking Isosorbide Mononitrate ER 120 MG Tablet Extended Release 24 Hour 1 tablet in the morning Orally Once a day, Taking Lyrica 75 MG Capsule 1 capsule Orally Twice a day, Taking Citalopram Hydrobromide 10 MG/5ML Solution 5 mL Orally Once a day, Taking Lipitor 80 MG Tablet 1 tablet Orally Once a day, Taking Questran 4 GM Packet 1 packet mixed with water or non-carbonated drink Orally Once a day, Taking Norvasc 5 MG Tablet 1 tablet Orally Once a day, Taking Lopressor 100 MG Tablet 1 tablet with food Orally Twice a day, Taking Benicar 20 MG Tablet 1 tablet Orally Once a day, Taking Aspirin 81 81 MG Tablet Chewable 1 tablet Orally Once a day, Discontinued Trulicity 3 MG/0.5ML Solution Pen-injector as directed Subcutaneous , Medication List reviewed and reconciled with the patient * Allergies:?Demerol. Objective: * Vitals:?Wt: 175 lbs, Ht: 68 in, BMI:26.61 Index, BP: 000/00 mm Hg, Temp: 97.1. * Examination: ???General Examination: ???On examination today, he appears well. Skin is anicteric. Lungs are clear. Heart shows regular rate and rhythm. Abdomen is soft without focal masses or tenderness. Extremities are without edema. Assessment: * Assessment: 1.?Gastroesophageal reflux d isease without esophagitis - K21.9 (Primary)?2.?Incontinence of feces, unspecified fecal incontinence type - R15.9?3.?Diarrhea, unspecified type - R19.7? We discussed gastroesophagea l reflux disease today. We discussed diet, lifestyle modifications, and weight management. He will continue omeprazole for the present time. Diarrheal symptoms appear consistent with irritable bowel syndrome with diarrhea predominance. We discussed this today. We recommended he continue fiber supplementation. We discussed the treatment of gas with weee-lxx-kgalyaw simethicone and anti-gas tablets. We gave him information on the FOD MAP diet, and he will continue Imodium and Pepto-Bismol for his symptoms. We discussed irritable bowel syndrome with diarrhea predominance today. Followup will be in one year. Plan: * Treatment: * Procedure Codes:?G9903 Pt sc rn tbco id as non user, G9744 PATIENT NOT ELIG D/T ACTIVE DX HTN * Preventive Medicine:? ??Counseling:?Care goal follow-up plan:?Above Normal BMI Follow-up?Giving encouragement to exercise,?BMI management provided?Yes.? * Follow Up:?1 Year * * Sign off status: Completed true * Provider:?Zurdo Frausto MD Date:?0 10/30/2023 Generated for Candace prieto/Naveed/Harmeetitting on:?12/30/2024 08:35 AM EDT History and Physical Notes * HPI (History of Present Illness) Category Sub-Category Detail Notes Category Not es New symptom(s) The patient i s a pleasant 78-year-old man seen today in followup. He was last seen for followup of diarrhea, incontinence, and reflux disease in March. Since that time he feels in general he somewhat better. He has excluded foods like garlic and fried foods with improvement in symptoms. He still does get occasional diarrhea. He uses Imodium and Pepto-Bismol to control his symptoms. He also has complaints of gas. Examination Category Sub-Category Detail Notes Category Not es General Examination On exami nation today, he appears well. Skin is anicteric. Lungs are clear. Heart shows regular rate and rhythm. Abdomen is soft without focal masses or tenderness. Extremities are without edema.
--- OUTSIDE RECORDS SUMMARY | 2024-12-30 08:36 | XMS_ITS | Clinical Summary ---
Author Organization [address] Address [address] [place] [phone] Phone Care Team Providers Care Scale And Skip Car Operator Name Role Phone Unavailable Primary Care Provider Unavailabl e Social History Tobacco Use Types Packs/Day Years Used Date Smoking Tobacco: Never Assessed Sex and Gender Information Value Date Recorded Sex Assigned at Not on file Legal Sex Male 4:05 PM EST Gender Identity Not on file Sexual Orientation Not on file Plan of Treatment Health Maintenance Due Date Last Done Comments COVID-19 Vaccine (#1) 1950 DTaP,Tdap,and Td Vaccines (1 - Tdap) 1966 Pneumococcal Vaccine: 50+ Ye ars (1 of 2 - PCV) 1966 Zoster Vaccines (1 of 2) 1966 RSV Immunization Adult Patie nts (1 - 1-dose 75+ series) 2022 Cholesterol Screening (Lipid Panel) 08/28/2024 Depression Screening 08/28/2024 Falls Risk Assessment 08/28/2024 Hepatitis C Screening 08/28/2024 Medicare Annual Wellness Visit 08/28/2024 Social Influencers of Health Screening 08/28/2024 Influenza Vaccine (Season Ended) 2025 HIB Vaccines Aged Out No longer eligi ble based on patient's age to complete this topic HPV Vaccines Aged Out No longer eligi ble based on patient's age to complete this topic Hepatitis A Vaccines Aged Out No long er eligible based on patient's age to complete this topic Hepatitis B Vaccines Aged Out No long er eligible based on patient's age to complete this topic IPV Vaccines Aged Out No longer eligi ble based on patient's age to complete this topic MMR Vaccines Aged Out No longer eligi ble based on patient's age to complete this topic Meningococcal ACWY Vaccine Aged Out N o longer eligible based on patient's age to complete this topic Meningococcal B Vaccine Aged Out No l onger eligible based on patient's age to complete this topic RSV Immunization Patients Un bj 20 months Aged Out No longer eligible b ased on patient's age to complete this topic Varicella Vaccines Aged Out No longer eligible based on patient's age to complete this topic Insurance [facility]ICARE [facility]
--- OUTSIDE RECORDS SUMMARY | 2024-12-30 08:36 | XMS_ITS | Patient Health Record ---
Author Organization [facility] Address [address] [place] [address] Care Team Providers Care Customer Records Division Supervisor Name Role Phone Connor CARDENAS, Jalil Primary Care Provider Zurdo Damon Jr Unavailable [phone] 2 Allergies Allergen (clinical drug ingredient) Drug/Non Drug Allergy documented on EMR Reaction Allergy Type Onset Date Status meperidine Demerol Unknown Drug Allergy Active Reason For Referral No Information Medications Medication SIG (Take, Route, Frequency, Duration) Notes Start Date End Date Status Ozempic (1 MG/DOSE) 4 MG/3ML as directed Subcutaneous Act noel Centrum Silver 50+Men - as directed Orally Active Benicar 20 MG 1 tablet Orally Once a day for 30 day(s) Active CoQ-10 100 MG as directed Orally Active Lopressor 100 MG 1 tablet with food O rally Twice a day for 30 day(s) Active Lasix 40 MG 1 tablet Orally Once a day Active Ferrous Gluconate 324 (38 Fe) MG 1 tablet with water or juice between meals Orally Once a day for 30 day(s) Active Pantoprazole Sodium 40 MG 1 tablet 1/2 t o 1 hour before morning meal Orally Once a day Active Probiotic - as directed Orally Active Aspirin 81 81 MG 1 tablet Orally Once a day for 30 day(s) Active Dicyclomine HCl 10 MG 2 capsules Orally Three times a day Active Isosorbide Mononitrate ER 120 MG 1 tablet in the morning Orally Once a day for 30 day(s) Active Flomax 0.4 MG 1 capsule Orally Onc e a day Active Finasteride 5 MG 1 tablet Orally Once a day for 30 day(s) Active Alpha Lipoic Acid 200 MG 1 capsule Orall y Once a day Active Citalopram Hydrobromide 10 MG/5ML 5 mL Orally Once a day for 30 day(s) Active Amitriptyline HCl 25 MG 1 tablet at bedt dayana Orally Once a day Active Lyrica 75 MG 1 capsule Orally Twi ce a day Active Lipitor 80 MG 1 tablet Orally Once a day for 30 day(s) Active Jardiance 25 MG 1 tablet Orally Once a day for 30 days Active Norvasc 5 MG 1 tablet Orally Once a day for 30 day(s) Active Benefiber Drink Mix - as directed Orally Active Questran 4 GM 1 packet mixed with water or non-carbonated drink Orally Once a day for 30 day(s) Active Immunizations Vaccine Route Administration Date Status Comme nts Influenza Unknown 07/19/2022 Administered Influenza Unknown 05/07/2023 Administered Influenza Unknown 06/02/2024 Administered Social History Tobacco Use: Social History [...] Problem Status W/U Status Risk Notes Problem 333325770 Gastroesophageal reflux disease without esophagitis (K21.9) Active confirmed Problem 22594445 Diarrhea, unspecified type (R19.7) Active confirmed Problem Incontinence of feces (33679129) Incontinence of feces, unspecified fecal incontinence type (R15.9) Active confirmed Vital Signs Temperature 96.9 degrees Fahrenheit 11/23/2024 Blood pressure diastolic 01 mm Hg 11/23/2024 Height 68 in 11/23/2024 Blood pressure systolic 001 mm Hg 11/23/2024 Weight 188.4 lbs 11/23/2024 BMI 28.64 kg/m2 11/23/2024 Encounters Encounter Location Date Provider Diagnosis [facility] [address] [place] [address] 11/23/2024 Zurdo Frausto Jr Abnormal LFTs R79.89 Assessments Encounter Date Diagnosis (ICD Code) Assessment Notes Treatment Notes Treatment Clinical Notes Section Notes 11/23/2024 Abnormal LFTs (ICD-10 - R79.89) Plan Of Treatment Pending Test Test Name Order Date STOOL WBC 11/20/2022 OVA & PARASITES (O&P) 11/20/2022 US ABD 11/23/2024 Next Appt Details Provider Name:Zurdo Sonali milian Jr, 11/24/2025 09:00:00 AM, [address], [address], [place], [address], Insurance Providers Payer Name Payer Address Payer Phone Subscriber Number Group Number Insured Name Patient Relationship to Insured Coverage Start Date Coverage End Date MEDICARE OF [place] [address] [place] [address] [id number] MARIA LUZ CONNOR Self - patient is the insured [employer] [address] [place] [address] [phone] [id number] ELIZA Woodall MARIA LUZ Self - patient is the insured Medical (General) History Medical History History ICD Code Diabetes mellitus type 2 Chronic kidney disease stage II pulmonary hypertension Systemic hypertension bladder cancer Coronary artery disease with stent place ment JACQUELIN/CPAP MGUS Hyperlipidemia EGD/colonoscopy 11/06, gastri c nodules, normal duodenal biopsies, gastric biopsy showed fundic gland polyp colonoscopy 2 tubular adenomas and normal random biopsies Surgical History Surgery Date(Month/Year) Cataract repairs cholecystectomy Multiple hernia repairs prostatectomy 10 years ago
--- OUTSIDE RECORDS SUMMARY | 2024-12-30 08:36 | XMS_ITS ---
Author Organization [facility] Address [address] [place] [address] Care Team Providers Care Shop Estimator Name Role Phone Connor CARDENAS, Jalil Primary Care Provider Unavailab Alpa Johnson Unavailable [phone] REASON FOR VISIT bought small tube Medihoney Encounters Encounter Location Date Provider Diagnosis [address] [address] 11/03/2024 Alpa Avelar Plan Of Treatment Next Appt Details Provider Name:Alpa phan, 01/13/2025 11:30:00 AM, [address] [place] [address], [phone], Progress Notes * Chris BRIGHT MDOB:[birth year] (79 yo M)Acc No.[id number]:11/03/2024 Patient:?KAITLIN Chris Rosales :1945???Age:79 Y???Sex:Male Address: [address], [place] [address] * true * Date:? Generated for Printi ng/Faxing/eTransmitting on:?12/30/2024 08:35 AM EDT
== END 2024-12-30 08:24 | disposition home or self-care (01) ==
LOC: HO.US 08:23
PROVIDERS: PCP Family Medicine; Visit Provider Internal Medicine Gastroenterology
DX: R79.89 Other specified abnormal findings of blood chemistry (principal)
CPT/HCPCS: 76700

== ENCOUNTER → 2024-12-30 08:25 | Outpatient (BNV) | payer MEDICARE, OTHER, SELFPAY | PROVIDERS: PCP Family Medicine; Visit Provider Radiology Diagnostic Radiology | DX: N28.1 Cyst of kidney, acquired (principal); R16.0 Hepatomegaly, not elsewhere classified | CPT/HCPCS: 76700 ==

== ENCOUNTER 2025-01-21 14:00 | Outpatient (AMB) | payer MEDICARE, OTHER, SELFPAY ==
--- NOTE | 2025-01-21 14:04 | HO.NEPHOV ---
Vital Signs 01/21/25 14:05 Height 5 ft 8 in Weight 183 lb BMI 27.8 BP 112/58 L Blood Pressure Location Lt brachial Position Sitting Pulse 77 Pulse Source Pulse Oximeter Pulse Oximetry (%) 92 Oxygen Delivery Method Room Air Intake Visit Reasons: FU/ Conf Quality Control Microbiology Supervisor Required: No Accompanied by: Spouse Allergies demerol Allergy (Unknown, Uncoded 04/20/20 00:00) itching From DEMEROL Adverse Reaction (Mild, Uncoded 05/05/20 15:39) ITCHINESS Medication List - Last Reconciled 01/21/25 by Jovani Oneill MD amitriptyline 25 mg PO BEDTIME amlodipine 5 mg PO DAILY aspirin 81 mg PO DAILY atorvastatin 80 mg PO DAILY citalopram 10 mg PO DAILY coenzyme Q10 (H2Q CoQ10) 100 mg PO cyclobenzaprine 10 mg PO TID PRN dicyclomine 10 mg PO DAILY empagliflozin (Jardiance) 25 mg PO DAILY ferrous sulfate 325 mg PO DAILY finasteride 5 mg PO DAILY furosemide 40 mg PO DAILY isosorbide mononitrate ER 120 mg PO DAILY metoprolol tartrate 100 mg PO BID wxzvedojzfmn-uecxyxoc-bwvueb 1 tab PO DAILY nitroglycerin mg sublingual pantoprazole 40 mg PO DAILY pregabalin 75 mg PO TID semaglutide (Ozempic) 2 mg subcut QWEEK tamsulosin (Flomax) 0.4 mg PO DAILY HPI Comments Details: Mariajose is a 78-year-old man with history of longstanding hypertension and diabetes mellitus complicated by coronary disease and mild CKD. He has pulmonary hypertension as well. He developed diarrhea with metformin which has improved. From a renal standpoint he is doing reasonably well. Continues have shortness of breath on exertion. He is being evaluated by Cardiology and Pulmonary. He is waiting for a 6 minutes stress test. 10/30: Now on Ozempic- self prescribed Also on Jardiance ;Diarrhea is better ;A1C is 5.8% 04/07/24; Off Benicar; Home BP is OK ; No further diarrhea ;No change in resp status ;c/o leg pain / ache when he walks 08/03/24;On ozempic ; No weight loss yet 11/10/24: Foot problems- seen by paving supervisor Still on Ozempic and no further weight loss. No more diarrhea HCT is still elevated 01/21/25 79-year-old male presenting with a follow-up on a renal cyst, chronic kidney disease, and diabetes mellitus. The renal cyst, approximately 1.1 cm, was first identified during a previous imaging study and has been regularly monitored. The patient has a history of chronic kidney disease with fluctuating creatinine levels between 1.3 and 1.5 mg/dL and a GFR of 45 to 55%. His diabetes mellitus further exacerbates his kidney condition, requiring cautious imaging strategies avoiding nephrotoxic contrast use. There are no reported symptoms related to the cyst or notable progression of kidney issues, but regular monitoring continues to be essential. [facility] Family History Father Heart attack Diabetes Mother Heart attack Lung cancer Physical Exam Vital Signs: Last Vital Signs Pulse 77 01/21/25 14:05 BP 112/58 L 01/21/25 14:05 Pulse Ox 92 01/21/25 14:05 Oxygen Delivery Method Room Air 01/21/25 14:05 BMI result Body Mass Index 27.8 Comfortable Neck supple no JVD. Lungs entry equal no rales. Heart S1-S2 heard no gallop or rub. Abdomen soft nontender. Neuro alert awake oriented. No asterixis. Extremities no edema. Results Reviewed Nephrology Results: Hgb 17.9 g/dl (14.0-18.0) 11/06/24 WBC 8.4 X10*3/uL (4.8-10.8) 11/06/24 Plt Count 128 X10*3/uL (160-400) L 11/06/24 Sodium 139 mmol/L (135-145) 11/06/24 Potassium 4.1 mmol/L (3.3-5.1) 11/06/24 Chloride 105 mmol/L (96-108) 11/06/24 Carbon Dioxide 28 mmol/L (22-29) 11/06/24 BUN 19 mg/dL (9-16) H 11/06/24 Creatinine 1.55 mg/dL (0.5-1.4) H 11/06/24 Calcium 8.6 mg/dL (8.4-10.2) 11/06/24 Assessment & Plan Assessment & Plan (1) CKD (chronic kidney disease) stage 2, GFR 60-89 ml/min: Code(s): N18.2 - Chronic kidney disease, stage 2 (mild) Category: Medical (2) Renal cyst: Code(s): N28.1 - Cyst of kidney, acquired Category: Medical (3) HTN (hypertension): Code(s): I10 - Essential (primary) hypertension Category: Medical (4) Diabetes insipidus, neurohypophyseal: Code(s): E23.2 - Diabetes insipidus Category: Medical (5) Pulmonary fibrosis: Code(s): J84.10 - Pulmonary fibrosis, unspecified Category: Medical (6) Obesity: Code(s): E66.9 - Obesity, unspecified Category: Medical Plan . 1. Hypertension. Blood pressure is acceptable 2. Nonischemic cardiomyopathy. Follow-up with [facility]. 3. Chronic kidney disease stage 3. Serum creatinine stable at 1.54 in jul 2024 Now at 1.55 Fluid status is optimal. Next item no indication for a diuretic at this time. Will benefit from SGLT2 inhibitor. Continue to avoid nephrotoxic agents. 4. Polycythemia Hemoglobin is 17.2. ; Has follow-up appointment with Hematology 5. Diabetes mellitus. Recent A1C 6.7% ;Ozempic and the dose is being titrated. 6. Diarrhea has improved 7. Elevated LFTs- NEeds follow up with GI 8. Renal cyst- follow up USG ordered for 6 months May need evaluation based on USG All his questions were answered. Orders: Orders US renal BI Today I10 - Essential (primary) hypertension, N28.1 - Cyst of kidney, acquired Complete Blood Count Auto Diff 3 Months N18.2 - Chronic kidney disease, stage 2 (mild), N28.1 - Cyst of kidney, acquired Comprehensive Met. Panel 3 Months N18.2 - Chronic kidney disease, stage 2 (mild), N28.1 - Cyst of kidney, acquired Total Protein Urine Random 3 Months N18.2 - Chronic kidney disease, stage 2 (mild), N28.1 - Cyst of kidney, acquired UA and rflx microscopic 3 Months N18.2 - Chronic kidney disease, stage 2 (mild), N28.1 - Cyst of kidney, acquired Parathyroid Hormone Intact 3 Months N18.2 - Chronic kidney disease, stage 2 (mild), N28.1 - Cyst of kidney, acquired Creatinine Urine 3 Months N18.2 - Chronic kidney disease, stage 2 (mild), N28.1 - Cyst of kidney, acquired Coding Level of Care Code Est Pt Level 4 (22400) Diagnoses CKD (chronic kidney disease) stage 2, GFR 60-89 ml/min N18.2 Renal cyst N28.1 HTN (hypertension) I10 Diabetes insipidus, neurohypophyseal E23.2 Pulmonary fibrosis J84.10 Obesity E66.9
[2025-01-21 14:05] VITALS: BP 112/58; PULSE 77; O2SAT 92; BMI 27.8
--- OUTSIDE RECORDS SUMMARY | 2025-01-21 16:37 | XMS_ITS ---
Author Organization [facility] Address [address] [place] [address] Care Team Providers Care Refinery Operator Helper Name Role Phone Connor CARDENAS, Jalil Primary Care Provider Unavailab see Frausto Jr, Zurdo Martinez [phone] REASON FOR VISIT Patient presents today for diarrhea Encounters Encounter Location Date Provider Diagnosis [facility] [address] [address] 07/29/2024 Zurdo Frausto Jr Plan Of Treatment Next Appt Details Provider Name:Zurdo milian Jr, 11/24/2025 09:00:00 AM, [address] [place] [address], [place] [address], [place], [address], Progress Notes * MARIA LUZ BRIGHT MDOB:[birth year] (79 yo M)Acc No.[id number]:07/29/2024 Progress Notes Patient:?MARIA LUZ BRIGHT Provider:?Zurdo Frausto MD :1945???Age:78 Y???Sex:Male Virgil e:07/29/2024 Address:[address] [place], [place] [id number] Pcp:Jalil Ryan MD Subjective: * Chief Complaints: [...] MD Date:?1 09/29/2023 Generated for Candace prieto/Naveed/Topher on:?01/21/2025 04:37 PM EDT
== END 2025-01-21 14:35 | disposition home or self-care (01) ==
LOC: HO.HKA 14:01
PROVIDERS: PCP Family Medicine; Visit Provider Internal Medicine Hypertension Specialist
DX: I12.9 Hypertensive chronic kidney disease with stage 1 through stage 4 chronic kidney disease, or unspecified chronic kidney disease (principal); E11.22 Type 2 diabetes mellitus with diabetic chronic kidney disease; N18.2 Chronic kidney disease, stage 2 (mild); N28.1 Cyst of kidney, acquired; J84.10 Pulmonary fibrosis, unspecified; E66.9 Obesity, unspecified; Z68.27 Body mass index [BMI] 27.0-27.9, adult
CPT/HCPCS: 99214

== ENCOUNTER → 2025-01-21 14:00 | Outpatient (BNVA) | payer MEDICARE, OTHER, SELFPAY | PROVIDERS: PCP Family Medicine; Visit Provider Internal Medicine Hypertension Specialist | DX: E11.22 Type 2 diabetes mellitus with diabetic chronic kidney disease (principal); I12.9 Hypertensive chronic kidney disease with stage 1 through stage 4 chronic kidney disease, or unspecified chronic kidney disease; N18.2 Chronic kidney disease, stage 2 (mild); N28.1 Cyst of kidney, acquired; E23.2 Diabetes insipidus; J84.10 Pulmonary fibrosis, unspecified | CPT/HCPCS: 99212 ==

== ENCOUNTER 2025-03-22 15:14 | Outpatient (AMB) | payer MEDICARE, OTHER, SELFPAY ==
--- OUTSIDE RECORDS SUMMARY | 2024-07-29 07:20 | XMS_ITS ---
Author Organization [facility] Address [address] [place] [address] Care Team Providers Care Digital Product Manager Name Role Phone Connor (RETIRED) , Jalil Primary Care Provider Unavailable Zurdo Frausto Jr REASON FOR VISIT Patient presents today for diarrhea Encounters Encounter Location Date Provider Diagnosis [facility] [address] [address] 07/29/2024 Zurdo Frausto Jr Plan Of Treatment Next Appt Details Provider Name:Zurdo milian Jr, 11/24/2025 09:00:00 AM, [address] [place] [address], [place] [address], [place], [address], Progress Notes * MARIA LUZ BRIGHT MDOB:[birth year] (79 yo M)Acc No.[id number]:07/29/2024 Progress Notes Patient: REBA MONTELONGOUEL Bobby Provider: Yenny Frausto MD :1945 A ge:78 Y S ex:Male Date:07/29/2024 Address:[address] [place], [place] [id number] Pcp:Jalil Ryan (RETIRED) MD Subjective: * Chief [...] 1 09/29/2023 Generated for Candace prieto/Naveed/Topher on: 0 03/22/2025 03:16 PM EDT
--- OUTSIDE RECORDS SUMMARY | 2025-01-20 11:30 | XMS_ITS ---
Author Organization [facility] Address [address] [place] [address] Care Team Providers Care Decorator Lighting Fixtures Name Role Phone Connor CARDENAS, Jalil Primary Care Provider Unavailab Alpa Johnson Unavailable [phone] Encounters Encounter Location Date Provider Diagnosis [address] [address] 01/20/2025 Alpa Avelar Plan Of Treatment Next Appt Details Provider Name:Alpa phan, 03/26/2025 11:15:00 AM, [address] [place] [address], [phone], Progress Notes * Chris MADRIGAL MDOB:[birth year] (79 yo M)Acc No.[id number]:01/20/2025 Progress Note Patient: Chris MONTELONGO Provider: Sofi Avelar DPM :1945 A ge:79 Y S ex:Male Date:01/20/2025 Address:[address] [place] [address], [place] Pcp:Jalil Ryan MD Subjective: * Chief Complaints: * * Medical History: Objective: * Vitals: Assessment: Plan: * Treatment: * Images: * The named appointment provid er may or may not be the originator of this progress note, and it is not deemed complete until electronically signed by the appointment provider. Sign off status: Pending * Provider: Sofi Avelar, DPM Date: 0 01/20/2025 Generated for Candace prieto/Naveed/Topher on: 0 03/22/2025 03:16 PM EDT
--- OUTSIDE RECORDS SUMMARY | 2025-03-22 15:16 | XMS_ITS | Encounter Summary ---
Author Organization [facility] Address [address] [facility] [address] [place] [address] Phone Care Team Providers Care Bumper Machine Operator Name Role Phone Jalil Ryan MD Primary Care Provider [phone] Encounter Details Date Type Department Care Team (Late st Contact Info) Description 02/17/2021 Orders Only [facility] [address] [place] [address] Jovani Oneill MD Hypertensive chronic kidney disease, [...] unspecified documented in this encounter Care Teams Bumper Machine Operator Relationship Specialty Start Date End Date Jalil Ryan MD [address] [place] [address] [address] [place] PCP - General Internal Medicine 01/25/21 documented as of this encounter
--- OUTSIDE RECORDS SUMMARY | 2025-03-22 15:17 | XMS_ITS | Encounter Summary ---
Author Organization [facility] Address [address] [place] [address] Care Team Providers Care Study Abroad Coordinator Name Role Phone Unavailable Primary Care Provider Unavailabl e Encounter Details Date Type Department Care Team (Late st Contact Info) Description 08/27/2024 Lab Requisition [facility] - Main Lab [address] [place] [address] Cash Cerna MD [address] [facility] [address] [place] [address] Malignant neoplasm of posterior wall [...] AM EST) Final Diagnosis A. Urine, Voided, ([id number]): Negative for high grade urothelial carcinoma. Scant urothelial cells. Results of UroVysion fluorescence in situ hybridization (FISH) testing: CEP3: Normal CEP7: Normal CEP17: Normal LSI 9p21: Normal Interpretation: Normal profile Controls stained appropriately. Note: The results are intended as a screening device and should be interpreted in association with other clinical and pathological findings. 09/08/2024 9:02 AM EST [facility] Clinical Information History of bladder neoplasm (malignant) Z85.51 Malignant neoplasm of posterior C67.4 Cytology/FISH 09/08/2024 9:02 AM [facility] Gross Description A. Urine, Voided, ([id number]): Received 1 TP (CYTO) 1 TP (FISH) 09/08/2024 9:02 AM [facility] Disclaimer Unless otherwise specified, all tissue is 10% NB formalin fixed and paraffin embedded. Technical pathology services provided by [facility] at [address] [place] [address] [address], [place] [address] (CLIA #[id number]/Sari Looney MD, Ingredient Mixer) 09/08/2024 9:02 AM [facility] Tissue Urine specimen from urethra / Unknown 08/18/2024 08/27/2024 4:10 PM EST us Cash Cerna MD LAB PATHOLOGY ORDERABLES Final Result [facility] [address] [place] [address], documented in this encounter Visit Diagnoses Diagnosis Malignant neoplasm of posterior wall of bladder (CMS/HCC V24, CMS/HCC V28) Malignant neoplasm of posterior wall of urinary bladder Personal history of malignant neoplasm of bladder documented in this encounter
--- NOTE | 2025-03-22 15:24 | A.OFFPC_ITS ---
Vital Signs 03/22/25 15:27 03/22/25 15:35 Height 5 ft 8 in Weight 180 lb BMI 27.4 BP 112/68 Blood Pressure Location Lt brachial Position Sitting Respiration 16 Pulse 67 Pulse Source Pulse Oximeter Temp 96.8 F Temp Source Temporal Artery Scan Pulse Oximetry (%) 98 Oxygen Delivery Method Room Air Intake Visit Reasons: routine Ryan pt. Police Pilot Required: No Accompanied by: Spouse Allergies demerol Allergy (Unknown, Uncoded 03/23/25 07:53) itching From DEMEROL Adverse Reaction (Mild, Uncoded 03/23/25 07:53) ITCHINESS Medication List - Last Reconciled 03/23/25 by Liu Tomlinson MD amitriptyline 25 mg PO BEDTIME amlodipine 5 mg PO DAILY aspirin 81 mg PO DAILY atorvastatin 80 mg PO DAILY blood sugar diagnostic (FreeStyle Lite Strips) As directed citalopram 10 mg PO DAILY coenzyme Q10 (H2Q CoQ10) 100 mg PO cyclobenzaprine 10 mg PO TID PRN dicyclomine 10 mg PO DAILY empagliflozin (Jardiance) 25 mg PO DAILY ferrous sulfate 325 mg PO DAILY finasteride 5 mg PO DAILY furosemide 40 mg PO DAILY isosorbide mononitrate ER 120 mg PO DAILY metoprolol tartrate 100 mg PO BID hnihcfbegkjp-iknxleyo-vbkstx 1 tab PO DAILY nitroglycerin mg sublingual pantoprazole 40 mg PO DAILY pregabalin 75 mg PO TID semaglutide (Ozempic) 2 mg subcut QWEEK semaglutide (Ozempic) mg subcut tamsulosin (Flomax) 0.4 mg PO DAILY tirzepatide (Mounjaro) 2.5 mg (0.5 mL) subcut QWEEK 4 weeks Tobacco use date assessed: 03/22/25 HPI routine Ryan pt. HPI Details Transferring care from Dr Ryan [facility] Medical History (Updated 03/23/25 @ 07:54 by Liu Tomlinson MD) Diabetes mellitus HTN (hypertension) Family History Father Heart attack Diabetes Mother Heart attack Lung cancer Social History Patient Tobacco Use Status: Never used Tobacco e-Cigarette/Vaping Use: Never Used Questionnaire AUDIT C Alcohol Use Questionnaire (AUDIT-C) 1. How often do you have a drink containing alcohol?: Monthly or less 2. How many drinks containing alcohol do you have on a typical day when you are drinking?: 1 or 2 Total Score: 1 Physical exam (Primary Care) Vital Signs: Last Vital Signs Temp 96.8 F 03/22/25 15:35 Pulse 67 03/22/25 15:35 Resp 16 03/22/25 15:35 BP 112/68 03/22/25 15:35 Pulse Ox 98 03/22/25 15:35 Oxygen Delivery Method Room Air 03/22/25 15:35 Care Plan Goal for BP management: BP is in range. BMI result Body Mass Index 27.4 Tobacco/Smoking Status: Tobacco use Status Tobacco use date assessed 03/22/25 03/22/25 15:36 Patient Tobacco Use Status Never used Tobacco 03/22/25 15:36 e-Cigarette/Vaping Use Never Used 03/22/25 15:36 Coding Level of Care Code New Pt Level 4 (00845) Complex EM visit Add On G2211 Diagnoses HTN (hypertension) I10 Obesity E66.9 Diabetes mellitus E11.9 CKD (chronic kidney disease) stage 2, GFR 60-89 ml/min N18.2 Assessment & Plan Assessment & Plan (1) HTN (hypertension): Code(s): I10 - Essential (primary) hypertension Category: Medical Plan: BP in range. Continue current medications. (2) Obesity: Code(s): E66.9 - Obesity, unspecified Category: Medical Plan: Mounjaro treatment initiated. (3) Diabetes mellitus: Code(s): E11.9 - Type 2 diabetes mellitus without complications Category: Medical Plan: BW ordered. Will call with results (4) CKD (chronic kidney disease) stage 2, GFR 60-89 ml/min: Code(s): N18.2 - Chronic kidney disease, stage 2 (mild) Category: Medical Plan: Condition is stable. Plan History of Present Illness - The patient is a 79-year-old male presenting with diabetes mellitus and associated symptoms, including diarrhea. - Diarrhea: The patient reports unexpected diarrhea, which is better now but occasionally results in waking up with soiling. - The diarrhea is suspected to be associated with the use of Ozempic, a medication the patient has been on for a year and a half. - Diabetes Mellitus: The patient has been managing diabetes with medications including Ozempic and previously Trulicity, without significant weight loss. - The patient has a history of using Metformin for 20 years, which was reduced due to gastrointestinal side effects. - Overweight: The patient's customer experience specialist has advised that he is approximately 20 pounds overweight, despite not overeating and maintaining a diet with limited carbohydrate intake. - The patient engages in regular physical activity, including cycling and walking, and has no history of alcohol or tobacco use. Social History - The patient is retired and has been for 12 years, with Medicare and [employer] as insurance coverage. - The patient maintains a diet with limited carbohydrate intake, sharing meals with his spouse, and engages in regular physical activity, including cycling and walking. - The patient has no history of alcohol or tobacco use. Review of Systems - Gastrointestinal: Reports unexpected diarrhea, better now, occasionally resulting in waking up with soiling. Denies fecal incontinence. - General: Reports being overweight by approximately 20 pounds as advised by customer experience specialist. Physical Exam General: Cooperative and healthy appearing Nutritional Appearance: Well nourished Orientation/consciousness: Patient oriented x3 Limitations: No limitations Head: Normal to inspection General: Appearance normal, both eyes and all related structures Neck: Normal visual inspection Chest: Normal palpation of entire chest wall Respiratory: N ormal respiratory effort Neurology: Patient oriented x3, has hearing aids. Results Plan 1. Diarrhea - Plan to switch from Ozempic to Mounjaro, starting at a low dose and titrating up as tolerated. - Monitor for improvement in gastrointestinal symptoms with medication change. 2. Diabetes Mellitus - Plan to switch from Ozempic to Mounjaro, starting at a low dose and titrating up as tolerated. - Order blood work to assess current A1c levels. - Advise on dietary modifications, emphasizing reduction of carbohydrate intake. 3. Overweight - Encourage continuation of regular physical activity, including cycling and walking. - Advise on dietary modifications, emphasizing reduction of carbohydrate intake. Discussion Notes I discussed with the patient the plan to switch from Ozempic to Mounjaro, starting at a low dose and titrating up as tolerated, to manage diabetes and associated gastrointestinal symptoms. We also talked about the importance of dietary modifications, particularly reducing carbohydrate intake, and maintaining regular physical activity. I will order blood work to assess the current A1c levels and monitor the patient's progress with the new medication regimen. The patient was advised to contact the office if there are any concerns or if symptoms do not improve. Patient Instructions - Stop Ozempic one week before starting Mounjaro. - Follow a diet low in carbohydrates and avoid simple sugars. - Continue regular physical activity, such as cycling and walking. - Monitor for any changes in symptoms and report any concerns to the office. - Schedule blood work to check A1c levels. Orders: Orders Basic Metabolic Panel 03/22/25 I10 - Essential (primary) hypertension Lipid Panel 03/22/25 I10 - Essential (primary) hypertension Complete Blood Count no Diff 03/22/25 I10 - Essential (primary) hypertension Liver Panel 03/22/25 I10 - Essential (primary) hypertension Thyroid Stimulating Hormone 03/22/25 I10 - Essential (primary) hypertension Hemoglobin A1c 03/22/25 I10 - Essential (primary) hypertension UA and rflx microscopic 03/22/25 I10 - Essential (primary) hypertension Medications: New tirzepatide (Mounjaro) for 4 weeks 2.5 mg (0.5 mL) subcut QWEEK 2 mL 0RF 4 weeks
[2025-03-22 15:27] VITALS: BMI 27.4
[2025-03-22 15:35] VITALS: BP 112/68; PULSE 67; RESP 16; TEMP 36; O2SAT 98
== END 2025-03-22 16:09 | disposition home or self-care (01) ==
LOC: HO.HMCHD 15:14
PROVIDERS: PCP Family Medicine; Visit Provider Internal Medicine
DX: I12.9 Hypertensive chronic kidney disease with stage 1 through stage 4 chronic kidney disease, or unspecified chronic kidney disease (principal); E66.9 Obesity, unspecified; E11.9 Type 2 diabetes mellitus without complications; N18.2 Chronic kidney disease, stage 2 (mild)

== ENCOUNTER → 2025-03-22 15:14 | Outpatient (BNVA) | payer MEDICARE, OTHER, SELFPAY | PROVIDERS: PCP Family Medicine; Visit Provider Internal Medicine | DX: I12.9 Hypertensive chronic kidney disease with stage 1 through stage 4 chronic kidney disease, or unspecified chronic kidney disease (principal); E11.22 Type 2 diabetes mellitus with diabetic chronic kidney disease; N18.2 Chronic kidney disease, stage 2 (mild); E66.9 Obesity, unspecified; Z68.27 Body mass index [BMI] 27.0-27.9, adult; Z71.3 Dietary counseling and surveillance | CPT/HCPCS: 99202 ==

== ENCOUNTER 2025-03-24 08:26 | Outpatient (REF) | payer MEDICARE, OTHER, SELFPAY ==
--- OUTSIDE RECORDS SUMMARY | 2024-07-29 07:20 | XMS_ITS ---
Author Organization [facility] Address [address] [place] [phone] Care Team Providers Care Blow Down Operator Name Role Phone Connor (RETIRED) , Jalil Primary Care Provider Unavailable Zurdo Frausto Jr REASON FOR VISIT Patient presents today for diarrhea Encounters Encounter Location Date Provider Diagnosis [facility] [address] [address] 07/29/2024 Zurdo Frausto Jr Plan Of Treatment Next Appt Details Provider Name:Zurdo milian Jr, 11/24/2025 09:00:00 AM, [address] [place] [address], [place] [address], [place], [address], Progress Notes * MARIA LUZ BRIGHT MDOB:[birth year] (79 yo M)Acc No.[id number]:07/29/2024 Progress Notes Patient: REBA MONTELONGOUEL Bobby Provider: Yenyn Frausto MD :1945 A ge:78 Y S ex:Male Date:07/29/2024 Address:[address] [place], [place] [phone] Pcp:Jalil Ryan (RETIRED) MD Subjective: * Chief [...] 09/29/2023 Generated for Candace prieto/Naveed/Topher on: 0 03/24/2025 08:36 AM EDT
--- OUTSIDE RECORDS SUMMARY | 2025-01-20 11:30 | XMS_ITS ---
[facility] Organization [facility] Address [address] [place] [address] Care Team Providers Care Water Resource Consultant Name Role Phone Connor CARDENAS, Jalil Primary Care Provider Unavailab Alpa Johnson Unavailable [phone] Encounters Encounter Location Date Provider Diagnosis [address] [address] 01/20/2025 Alpa Avelar Plan Of Treatment Next Appt Details Provider Name:Alpa phan, 03/26/2025 11:15:00 AM, [address] [place] [address], [phone], Progress Notes * Chris MADRIGAL MDOB:[birth year] (79 yo M)Acc No.[id number]:01/20/2025 Progress Note Patient: Chris MONTELONGO Provider: Sofi Avelar DPM :1945 A ge:79 Y S ex:Male Date:01/20/2025 Address:[address] [place] [address], [place] Pcp:Jalil Ryan MD Subjective: * Chief Complaints: * * Medical History: Objective: * Vitals: Assessment: Plan: * Treatment: * Images: * The named appointment provid er may or may not be the originator of this progress note, and it is not deemed complete until electronically signed by the appointment provider. Sign off status: Pending * Provider: Sofi Avelar, DPBobby Date: 0 01/20/2025 Generated for Candace prieto/Naveed/Topher on: 0 03/24/2025 08:36 AM EDT
--- OUTSIDE RECORDS SUMMARY | 2025-03-24 08:36 | XMS_ITS | Encounter Summary ---
Author Organization [facility] Address [address] [place] [address] Care Team Providers Care Trestleman Name Role Phone Unavailable Primary Care Provider Unavailabl e Encounter Details Date Type Department Care Team (Late st Contact Info) Description 08/27/2024 Lab Requisition [facility] - Main Lab [address] [place] [address] Cash Cerna MD [address] [facility] [address] [place] [address] Malignant neoplasm of posterior wall [...] AM EST) Final Diagnosis A. Urine, Voided, ([id number]): Negative for high grade urothelial carcinoma. Scant urothelial cells. Results of UroVysion fluorescence in situ hybridization (FISH) testing: CEP3: Normal CEP7: Normal CEP17: Normal LSI 9p21: Normal Interpretation: Normal profile Controls stained appropriately. Note: The results are intended as a screening device and should be interpreted in association with other clinical and pathological findings. 09/08/2024 9:[address] 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 Gross Description A. Urine, Voided, ([id number]): Received 1 TP (CYTO) 1 TP (FISH) 09/08/2024 9:[address] [facility] Disclaimer Unless otherwise specified, all tissue is 10% NB formalin fixed and paraffin embedded. Technical pathology services provided by [facility] at [address] [place] [address] [address], [place] [address] (CLIA #[id number]/Sari Looney MD, Fur Floor Worker) 09/08/2024 9:[address] [facility] Tissue Urine specimen from urethra / Unknown 08/18/2024 08/27/2024 4:10 PM EST us Cash Cerna MD LAB PATHOLOGY ORDERABLES Final Result 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
--- OUTSIDE RECORDS SUMMARY | 2025-03-24 08:36 | XMS_ITS | Encounter Summary ---
Author Organization [facility] Address [address] [facility] [address] [place] [address] Phone Care Team Providers Care Collision Technician Name Role Phone Jalil Ryan MD Primary Care Provider [phone] Encounter Details Date Type Department Care Team (Late st Contact Info) Description 02/17/2021 Orders Only [facility] [address] [place] [address] Jovani Oneill MD Hypertensive chronic kidney disease, [...] unspecified documented in this encounter Care Teams Collision Technician Relationship Specialty Start Date End Date Jalil Ryan MD [address] [place] [address] [address] [place] PCP - General Internal Medicine 01/25/21 documented as of this encounter
[2025-03-24 11:29] LABS: Appearance Urine Clear; Glucose Urine UA >=1000 mg/dL (Negative); PH 7.5 (5.0-9.0); Specific Gravity - Urine 1.020 (1.005-1.025); UMIC TRIGGER UA YES
[2025-03-24 11:31] LABS: Hematocrit 48.2 % (42.0-52.0); Hemoglobin 16.8 g/dl (14.0-18.0); Mean Corpuscular HGB Conc 34.9 g/dl (31.0-36.0); Mean Corpuscular Hemoglobin 30.3 pg (27.0-33.0); Mean Corpuscular Volume 87.0 fL (80.0-98.0); NRBC Abs Auto 0.000 X10*3/uL (0.0-0.012); NRBC Pct Auto 0.0 /100WBC (0.0-0.2); Platelet Count 127 X10*3/uL (160-400); Red Blood Count 5.54 X10*6/uL (4.60-5.80); White Blood Count 8.1 X10*3/uL (4.8-10.8)
[2025-03-24 11:34] LABS: Hemoglobin A1C 193.8175 umol/L; Total Hemoglobin (HGBA1C) 4409.7086 umol/L
[2025-03-24 12:09] LABS: Alanine Aminotransferase 44 U/L (0-40); Albumin Level 3.9 g/dL (3.5-5.0); Alkaline Phosphatase 154 U/L (39-117); Anion Gap 9 (12-20); Aspartate Amino Transferase 39 U/L (5-37); Blood Urea Nitrogen 18 mg/dL (9-16); Calcium 8.2 mg/dL (8.4-10.2); Carbon Dioxide 30 mmol/L (22-29); Chloride 106 mmol/L (96-108); Cholesterol 86 mg/dL (<200); Estimated Glomerular Filt Rate 39; HDL Cholesterol 26 mg/dL (>40); Potassium 4.0 mmol/L (3.3-5.1); Sodium 141 mmol/L (135-145); Total Protein 5.8 g/dL (6.5-8.0); Triglycerides 168 mg/dL (<150)
[2025-03-24 12:34] LABS: Thyroid Stimulating Hormone 2.26 uIU/mL (0.32-4.0)
== END 2025-03-24 08:27 | disposition home or self-care (01) ==
LOC: HO.10HDL 08:26
PROVIDERS: Visit Provider Internal Medicine
DX: I10 Essential (primary) hypertension (principal); Z13.1 Encounter for screening for diabetes mellitus
CPT/HCPCS: 36415; 80048; 80061; 80076; 81001; 83036; 84443; 85027

== ENCOUNTER 2025-04-30 11:06 | Outpatient (REF) | payer MEDICARE, OTHER, SELFPAY ==
--- OUTSIDE RECORDS SUMMARY | 2024-07-29 07:20 | XMS_ITS ---
Author Organization [facility] Address [address] [place] [phone] Care Team Providers Care Supervisor Waterproofing Name Role Phone Connor (RETIRED) , Jalil Primary Care Provider Unavailable Zurdo Frausto Jr REASON FOR VISIT Patient presents today for diarrhea Encounters Encounter Location Date Provider Diagnosis [facility] [address] [address] 07/29/2024 Zurdo Frausto Jr Plan Of Treatment Next Appt Details Provider Name:Zurdo milian Jr, 11/24/2025 09:00:00 AM, [address] [place] [address], [place] [address], [place], [address], Progress Notes * MARIA LUZ BRIGHT MDOB:[birth year] (79 yo M)Acc No.[id number]:07/29/2024 Progress Notes Patient: Tomás HART MARIA LUZ Bobby Provider: Yenny Frausto MD :1945 A ge:78 Y S ex:Male Date:07/29/2024 Address:[address] [place], [place] [id number] Pcp:Jalil Ryan (RETIRED) MD Subjective: * Chief [...] 09/29/2023 Generated for Candace prieto/Naveed/Topher on: 0 04/30/2025 01:02 PM EDT
--- OUTSIDE RECORDS SUMMARY | 2025-01-20 11:30 | XMS_ITS ---
Author Organization [facility] Address [address] [place] [address] Care Team Providers Care Director Of Institutional Sales Name Role Phone Liu Tomlinson Primary Care Provider Alpa Avelar [phone] Encounters Encounter Location Date Provider Diagnosis [address] [address] 01/20/2025 Alpa Avelar Plan Of Treatment Next Appt Details Provider Name:Alpa phan, 07/06/2025 09:00:00 AM, [address] [place] [address], [phone], Progress Notes * DEANGELOChris RUDD MDOB:[birth year] (79 yo M)Acc No.[id number]:01/20/2025 Progress Note Patient: Chris MONTELONGO Provider: Ren Avelar DPM :1945 A ge:79 Y S ex:Male Date:01/20/2025 Address:[address] [place] [address], [phone] Pcp:Liu Tomlinson Subjective: * Chief Complaints: [...] DPM Date: 0 01/20/2025 Generated for Candace Barnes/Topher on: 0 04/30/2025 01:02 PM EDT
[2025-04-30 11:39] LABS: MANUAL DIFF FLAG NO
[2025-04-30 11:52] LABS: Hematocrit 48.5 % (42.0-52.0); Hemoglobin 16.7 g/dl (14.0-18.0); Imm Gran Abs Auto 0.08 X10*3/uL (0.00-0.03); Imm Gran Pct Auto 1.2 % (0.0-0.4); Lymphocytes Absolute Auto 0.8 X10*3/uL (1.2-4.9); Mean Corpuscular HGB Conc 34.4 g/dl (31.0-36.0); Mean Corpuscular Hemoglobin 30.5 pg (27.0-33.0); Mean Corpuscular Volume 88.5 fL (80.0-98.0); NRBC Abs Auto 0.000 X10*3/uL (0.0-0.012); NRBC Pct Auto 0.0 /100WBC (0.0-0.2); Platelet Count 119 X10*3/uL (160-400); Red Blood Count 5.48 X10*6/uL (4.60-5.80); White Blood Count 6.6 X10*3/uL (4.8-10.8)
[2025-04-30 12:30] LABS: Parathyroid Hormone Intact 164.4 pg/mL (8.7-77.1)
[2025-04-30 12:44] LABS: Alanine Aminotransferase 38 U/L (0-40); Albumin Level 4.0 g/dL (3.5-5.0); Alkaline Phosphatase 178 U/L (39-117); Anion Gap 13 (12-20); Aspartate Amino Transferase 29 U/L (5-37); Blood Urea Nitrogen 19 mg/dL (9-16); Calcium 8.4 mg/dL (8.4-10.2); Carbon Dioxide 28 mmol/L (22-29); Chloride 104 mmol/L (96-108); Estimated Glomerular Filt Rate 42; Potassium 4.6 mmol/L (3.3-5.1); Sodium 140 mmol/L (135-145); Total Protein 6.0 g/dL (6.5-8.0)
--- OUTSIDE RECORDS SUMMARY | 2025-04-30 13:02 | XMS_ITS | Encounter Summary ---
Author Organization [facility] Address [address] [place] [address] Care Team Providers Care Customer Service Sales Associate Name Role Phone Unavailable Primary Care Provider Unavailabl e Encounter Details Date Type Department Care Team (Late st Contact Info) Description 08/27/2024 Lab Requisition [facility] - Main Lab [address] [place] [address] Cash Cerna MD [address] [facility] [address] [place] [address] Malignant neoplasm of posterior wall [...] AM EST) Final Diagnosis A. Urine, Voided, ([id number]): Negative for high grade urothelial carcinoma. Scant urothelial cells. Results of UroVysion fluorescence in situ hybridization (FISH) testing: CEP3: Normal CEP7: Normal CEP17: Normal LSI 9p21: Normal Interpretation: Normal profile Controls stained appropriately. Note: The results are intended as a screening device and should be interpreted in association with other clinical and pathological findings. 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 Urine, Voided, ([id number]): Received 1 TP (CYTO) 1 TP (FISH) 09/08/2024 9:02 AM [facility] Disclaimer Unless otherwise specified, all tissue is 10% NB formalin fixed and paraffin embedded. Technical pathology services provided by [facility] at [address] [place] [address] [address], [place] [address] (CLIA #[id number]/Sari Looney MD, Underground Electrician) 09/08/2024 9:02 AM [facility] Tissue Urine specimen from urethra / Unknown 08/18/2024 08/27/2024 4:10 PM EST us Cash Cerna MD LAB PATHOLOGY ORDERABLES Final Result [facility] [address] [place] [address], documented in this encounter Visit Diagnoses Diagnosis Malignant neoplasm of posterior wall of bladder (CMS/HCC V24, CMS/HCC V28) Malignant neoplasm of posterior wall of urinary bladder Personal history of malignant neoplasm of bladder documented in this encounter
--- OUTSIDE RECORDS SUMMARY | 2025-04-30 13:02 | XMS_ITS | Patient Health Record ---
Author Organization [facility] Address [address] [place] [address] Care Team Providers Care Transportation Job Titles Name Role Phone Connor (RETIRED) , Jalil Primary Care Provider Unavailable Zurdo Frausto Jr Unavailable Allergies Allergen (clinical drug ingredient) Drug/Non Drug Allergy documented on EMR Reaction Allergy Type Onset Date Status meperidine Demerol Unknown Drug Allergy Active Results Component Value Reference Range Notes US abdomen complete Reviewed date:12/31/2024 10:36:45 AM Interpretation: Performing Lab: Notes/Report: [address] [address] Ultrasound Report Signed Patient: Chris Madrigal MR#: [id number] : 1945 Acct:[id number] Age/Sex: 79 / M ADM Date: 12/30/24 Loc: HO.US Attending Dr: Zurdo Frausto MD Ordering Physician: Zurdo Frausto MD Date of Service: 12/30/24 Procedure(s): US abdomen complete Accession Number(s): [id number] cc: Zurdo Frausto MD; Jalil Ryan MD EXAMINATION: US ABDOMEN HISTORY: ABNORMAL LFTS TECHNIQUE: Real-time grayscale ultrasound imaging of the abdomen was performed and images were reviewed. COMPARISON: Comparison is made with the prior examination dated 09/29/2018. FINDINGS: Liver: The right lobe of the liver measures 15.4 cm in size. The left lobe of the liver measures 10.9 cm in size. The liver demonstrates increased echotexture, consistent with steatosis. No focal mass or intrahepatic biliary ductal dilatation is identified. There is normal hepatopedal flow in the portal vein. Gallbladder and biliary tree: The gallbladder is surgically absent. The common bile duct is not identified. Kidneys: The right kidney measures 12.2 cm in length and demonstrates mild cortical thinning, but is otherwise unremarkable. The left kidney measures 12.8 cm in length and also demonstrates mild cortical thinning. There is a 2.9 x 2.0 x 2.1 cm septated cyst in the interpolar region laterally and a 1.5 x 1.1 x 1.6 cm septated cyst in the interpolar region medially. The left kidney is otherwise unremarkable. Pancreas: The pancreas is obscured by bowel gas. Spleen: The spleen is normal in size and contour, measuring 12.1 cm in length. Abdominal aorta and inferior vena cava: The visualized portions of the abdominal aorta and inferior vena cava are normal in caliber. There is no free fluid in the abdomen. US/US abdomen complete IMPRESSION: 1. Hepatomegaly and hepatic steatosis. 2. Mildly complicated left renal cysts as described. Follow-up is recommended. Electronically signed by: South Melgoza MD 12/30/2024 09:08 AM EDT RP Dictated By: South Melgoza MD Signed By: <Electronically signed by South Melgoza MD in OV> 12/30/24 0908 DD/ 0839 TD/TT: 12/30/24 0855 Part Maker: Reason For Referral No Information Medications Medication [...] Problem Status W/U Status Risk Notes Problem 406076711 Gastroesophageal reflux disease without esophagitis (K21.9) Active confirmed Problem 66304367 Diarrhea, unspecified type (R19.7) Active confirmed Problem Incontinence of feces (04833528) Incontinence of feces, unspecified fecal incontinence type (R15.9) Active confirmed Problem 313647994 Abnormal LFTs (R79.89) Active confirmed Vital Signs Temperature 96.9 degrees Fahrenheit 11/23/2024 Blood pressure diastolic 01 mm Hg 11/23/2024 Height 68 in 11/23/2024 Blood pressure systolic 001 mm Hg 11/23/2024 Weight 188.4 lbs 11/23/2024 BMI 28.64 kg/m2 11/23/2024 Encounters Encounter Location Date Provider Diagnosis [facility] [address] [place] [address] 11/23/2024 Zurdo Frausto Jr Abnormal LFTs R79.89 ; Gastroesophageal reflux disease without esophagitis K21.9 and Diarrhea, unspecified type R19.7 [facility] [address] [place] [address] 12/31/2024 Zurdo Frausto Jr Assessments Encounter Date Diagnosis (ICD Code) Assessment Notes Treatment Notes Treatment Clinical Notes Section Notes 11/23/2024 Gastroesophageal reflux disease without esophagitis (ICD-10 - K21.9) At this time, he is doing well. He will continue his present GI regimen for reflux and crampy abdominal discomfort. For his gas we recommended simethicone. Ultrasound of the abdomen will be obtained as there have been some elevated liver function tests in the past. Follow-up will be in 1 year pending the results of this testing. 11/23/2024 Abnormal LFTs (ICD-10 - R79.89) At this time, he is doing well. He will continue his present GI regimen for reflux and crampy abdominal discomfort. For his gas we recommended simethicone. Ultrasound of the abdomen will be obtained as there have been some elevated liver function tests in the past. Follow-up will be in 1 year pending the results of this testing. 11/23/2024 Diarrhea, unspecified type (ICD-10 - R19.7) At this time, he is doing well. He will continue his present GI regimen for reflux and crampy abdominal discomfort. For his gas we recommended simethicone. Ultrasound of the abdomen will be obtained as there have been some elevated liver function tests in the past. Follow-up will be in 1 year pending the results of this testing. Plan Of Treatment Pending Test Test Name Order Date STOOL WBC 11/20/2022 OVA & PARASITES (O&P) 11/20/2022 US ABD 11/23/2024 Next Appt Details Provider Name:Zurdo milian Jr, 11/24/2025 09:00:00 AM, [address] [facility], [address], [place], [address], Insurance Providers Payer Name Payer Address Payer Phone Subscriber Number Group Number Insured Name Patient Relationship to Insured Coverage Start Date Coverage End Date MEDICARE OF [place] [address] [place] [address] [phone] [id number] CHRIS CONNOR Self - patient is the insured [employer] [address] [place] [address] [id number] CHRIS CONNOR Self - patient is the insured Medical [...]
--- OUTSIDE RECORDS SUMMARY | 2025-04-30 13:02 | XMS_ITS | Encounter Summary ---
Author Organization [facility] Address [address] [facility] [address] [place] [address] Phone Care Team Providers Care Realtime Captioner Name Role Phone Jalil Ryan MD Primary Care Provider [phone] Encounter Details Date Type Department Care Team (Late st Contact Info) Description 02/17/2021 Orders Only [facility] [address] [place] [address] Jovani Oneill MD Hypertensive chronic kidney disease, [...] unspecified documented in this encounter Care Teams Realtime Captioner Relationship Specialty Start Date End Date Jalil Ryan MD [address] [place] [address] [address] [place] PCP - General Internal Medicine 01/25/21 documented as of this encounter
--- OUTSIDE RECORDS SUMMARY | 2025-04-30 13:02 | XMS_ITS | Clinical Summary ---
Author Organization [address] Address [address] [place] [address] Phone Care Team Providers Care Soldering Inspector Name Role Phone Unavailable Primary Care Provider Unavailabl e Social History Tobacco Use Types Packs/Day Years Used Date Smoking Tobacco: Never Assessed Sex and Gender Information Value Date Recorded Sex Assigned at Not on file Legal Sex Male 4:05 PM EST Gender Identity Not on file Sexual Orientation Not on file Plan of Treatment Health Maintenance Due Date Last Done Comments DTaP,Tdap,and Td Vaccines (1 - Tdap) 1966 Pneumococcal Vaccine: 50+ Ye ars (1 of 1 - PCV) 1997 Zoster Vaccines (1 of 2) 1997 RSV Immunization Adult Patie nts (1 - 1-dose 75+ series) 2022 Depression Screening 08/19/2024 Cholesterol Screening (Lipid Panel) 08/28/2024 Falls Risk Assessment 08/28/2024 Hepatitis C Screening 08/28/2024 Medicare Annual Wellness Visit 08/28/2024 Social Influencers of Health Screening 08/28/2024 COVID-19 Vaccine ( - 2023-2 5 season) 2025 Influenza Vaccine (#1) 2025 HIB Vaccines Aged Out No longer [...] age to complete this topic Insurance MEDICARE [facility]
--- OUTSIDE RECORDS SUMMARY | 2025-04-30 13:03 | XMS_ITS | Patient Health Record ---
[facility] Address [address] [place] [address] Care Team Providers Care Starting Gate Driver Name Role Phone Liu Tomlinson Primary Care Provider Alpa Avelar [phone] Allergies Allergen (clinical drug ingredient) Drug/Non Drug Allergy documented on EMR Reaction Allergy Type Onset Date Status meperidine Demerol itch Drug Allergy Active Results Component Value Reference Range Notes HEMOGLOBIN A1C (GLYCOHEMOGLO BIN) Reviewed date:11/13/2024 09:11:16 AM Interpretation: Performing Lab: Notes/Report: HEMOGLOBIN A1C % (HH) 6.7 HEMOGLOBIN A1C (GLYCOHEMOGLO BIN) Reviewed date:10/23/2024 11:14:01 AM Interpretation: Performing Lab: Notes/Report: HEMOGLOBIN A1C % (HH) 5.6 HEMOGLOBIN A1C (GLYCOHEMOGLO BIN) Reviewed date:11/03/2024 10:59:20 AM Interpretation: Performing Lab: Notes/Report: HEMOGLOBIN A1C % (HH) 5.6 HEMOGLOBIN A1C (GLYCOHEMOGLO BIN) Reviewed date:08/07/2024 10:21:31 AM Interpretation: Performing Lab: Notes/Report: TOTAL HEMOGLOBIN (HGBA1C) 6.7 HEMOGLOBIN A1C (GLYCOHEMOGLO BIN) Reviewed date:01/13/2025 11:28:17 AM Interpretation: Performing Lab: Notes/Report: HEMOGLOBIN A1C % (HH) 5.9 HEMOGLOBIN A1C (GLYCOHEMOGLO BIN) Reviewed date:03/26/2025 11:15:59 AM Interpretation: Performing Lab: Notes/Report: HEMOGLOBIN A1C % (HH) 6.3 Reason For Referral No Information Medications Medication SIG (Take, Route, Frequency, Duration) Notes Start Date End Date Status Pantoprazole Sodium 40 MG 1 tablet Orall y Once a day Active Extra Depth Orthopedic Shoes (1 Pair) with Customized Heat Molded Multidensity Innersoles (3 Pair) as directed Dx: NIDDM/Polyneuropath y (E11.42), Hammertoe Foot Deformity (M20.41,M20.42), Preulcerative Skin Lesion(s) (L85.1 11/07/2023 Active Norvasc 5 MG Orally Once a day Active Atorvastatin Calcium 80 MG 1 tablet Orally Once a day; Duration: 30 day(s) Active Metoprolol Succinate 50 MG 1 capsule Orally Once a day; Duration: 30 day(s) Active Jardiance 25 MG 1 tablet Orally Once a day; Duration: 30 days Active Citalopram Hydrobromide 10 MG Orally Active Finasteride 5 MG 1 tablet Orally Once a day Active Isosorbide Mononitrate 120 1 tablet once a day Active Lopressor 100 MG Orally Twice a day Active Lasix 40 MG Orally Active Santyl 250 UNIT/GM 1 application to affected area Externally to Foot Ulcer Once a day to wound 0.5 cm x 0.5 cm x 0.3 cm left 5th toe; Duration: 30 days 11/07/2023 Not-Taking PriLOSEC Not-Taking Amitriptyline HCl 25 MG 1 tablet at bedt dayana Orally Once a day; Duration: 30 day(s) Not-Taking Questran 2 Scoops a day Not-Taking Doxycycline Monohydrate 100 MG 1 tablet Orally Twice a day; Duration: 7 days 12/02/2023 Not-Taking Extra Depth Orthopedic Shoes (1 Pair) with Customized Heat Molded Multidensity Innersoles (3 Pair) as directed Dx: NIDDM/Polyneuropath y (E11.42), Hammertoe Foot Deformity (M20.41,M20.42), Preulcerative Skin Lesion(s) (L85.1 01/13/2025 Active Amoxicillin last one taken today 10/23/24 Not-Taking Extra Depth Orthopedic Shoes (1 Pair) with Customized Heat Molded Multidensity Innersoles (3 Pair) as directed Dx: NIDDM/Polyneuropath y (E11.42), Hammertoe Foot Deformity (M20.41,M20.42), Preulcerative Skin Lesion(s) (L85.1 10/12/2022 Not-Taking Cephalexin 500 MG 1 capsule Orally every 12 hrs; Duration: 7 days 1 more Not-Taking Cephalexin 500 MG 1 capsule Orally every 12 hrs; Duration: 7 days Not-Taking Keflex 500 MG 1 capsule Orally every 12 hrs; Duration: 5 days 07/16/2023 Not-Taking Amitriptyline HCl 25 MG 1 tablet at bedt dayana Orally Once a day Active Ferrous Gluconate 324 (37.5 Fe) MG 1 tablet Orally Active Lipitor 80 MG 1 tablet Orally Once a day Active traMADol HCl 50 MG 1 tablet as needed Orally Every 6 hours as need for pain; Duration: 7 days 06/26/2022 Not-Taking Glucophage 500 MG 1 tab Orally once a day x2 500 Not-Taking Physical Therapy . . . 2-3x/week; Duration: 3-4 weeks 07/17/2022 Not-Taking Benicar 20 MG Orally Not-Ta laura Trulicity 3 MG/0.5ML as directed Subcutaneous Not-Taking Ferrous Gluconate No t-Taking Extra Depth Orthopedic Shoes (1 Pair) with Customized Heat Molded Multidensity Innersoles (3 Pair) as directed Dx: NIDDM/Polyneuropath y (E11.42), Hammertoe Foot Deformity (M20.41,M20.42), Preulcerative Skin Lesion(s) (L85.1 10/27/2019 Not-Taking Ibuprofen 800 MG 1 tablet Orally Three times a day; Duration: 7 days 06/26/2022 Not-Taking Ambrisentan 5 MG 1 tablet Orally Once a day; Duration: 30 day(s) Not-Taking hydroCHLOROthiazide 12.5 MG 1 capsule in the morning Orally Once a day; Duration: 30 day(s) Not-Taking Simvastatin 40 MG Orally No t-Taking Lyrica 75 MG 1 capsule Orally 3 times a day x3 a day Active aspirin baby Active Flomax Active Dicyclomine HCl 10 MG 1 Orally once a day Active amLODIPine Besylate 2.5 MG 1 tablet Orally Once a day Active Ozempic Active CoQ-10 Active Gabapentin Not-Takin g Probiotic Active Voltaren 1 % as directed Transdermal Apply to affected area(s) four times a day; Duration: 30 days 01/07/2019 Not-Taking Centrum Silver Activ e Omeprazole Not-Takin g Benefiber Active Prilosec Not-Taking Immunizations Vaccine Route Administration Date Status Comme nts Influenza Unknown 05/10/2015 Administered Influenza Unknown 04/28/2018 Administered Influenza Unknown 05/01/2019 Administered Influenza Unknown 03/29/2020 Administered Influenza Unknown 06/06/2023 Administered Influenza Unknown 04/19/2024 Administered Pneumococcal Unknown 05/10/2015 Administered COVID-19 Moderna Vaccine Unknown 05/12/2022 Administere d 10/21/20,11/21/20 06/10/21,11/23/21 Social History Tobacco Use: Social History Observation [...] Problem Status W/U Status Risk Notes Problem Polyneuropathy due to type 2 diabetes mellitus (991121906) Type 2 diabetes mellitus with diabetic polyneuropathy (E11.42) Active confirmed Vital Signs Blood pressure diastolic 76 mm Hg 03/26/2025 Height 5ft 8in in 03/26/2025 Blood pressure systolic 121 mm Hg 03/26/2025 Weight 179 lbs 03/26/2025 BMI 27.21 kg/m2 03/26/2025 Encounters Encounter Location Date Provider Diagnosis [address] [address] 06/02/2024 Alpa Avelar Other hammer toe(s) (acquired), left foot M20.42 ; Hallux valgus (acquired), left foot M20.12 ; Type 2 diabetes mellitus with diabetic polyneuropathy E11.42 ; Tinea unguium B35.1 ; Other hammer toe(s) (acquired), right foot M20.41 and Hallux valgus (acquired), right foot M20.[address] [address] 07/24/2024 Alpa Perica Neurotrophic ulcer o f left foot limited to breakdown of skin L97.521 and Type 2 diabetes mellitus with diabetic polyneuropathy E11.[address] [address] 08/07/2024 Alpa Perica Neurotrophic ulcer o f left foot limited to breakdown of skin L97.521 ; Type 2 diabetes mellitus with diabetic polyneuropathy E11.42 ; Tinea unguium B35.1 ; Other hammer toe(s) (acquired), left foot M20.42 and Hammer toe of right foot M20.[address] [address] 10/23/2024 Alpa Perica Neuropathic ulcer of right foot, limited to breakdown of skin L97.511 and Type 2 diabetes mellitus with diabetic polyneuropathy E11.[address] [address] 11/03/2024 Alpa Perica Type 2 diabetes mellitus with diabetic polyneuropathy E11.42 ; Neuropathic ulcer of right foot, limited to breakdown of skin L97.511 ; Tinea unguium B35.1 and Hammer toe of right foot M20.[address] [address] 11/13/2024 Alpa Perica Neuropathic ulcer of right foot, limited to breakdown of skin L97.511 ; Hammer toe of right foot M20.41 ; Type 2 diabetes mellitus with diabetic polyneuropathy E11.42 and Other hammer toe(s) (acquired), left foot M20.[address] [address] 01/13/2025 Alpa Perica Hallux valgus (acquired), left foot M20.12 ; Other hammer toe(s) (acquired), right foot M20.41 ; Other hammer toe(s) (acquired), left foot M20.42 ; Type 2 diabetes mellitus with diabetic polyneuropathy E11.42 ; Tinea unguium B35.1 ; Hallux valgus (acquired), right foot M20.11 and Ingrown nail L60.[address] [facility] [address] 03/26/2025 Alpa Perica Hallux valgus (acquired), left foot M20.12 ; Other hammer toe(s) (acquired), right foot M20.41 ; Other hammer toe(s) (acquired), left foot M20.42 ; Type 2 diabetes mellitus with diabetic polyneuropathy E11.42 ; Tinea unguium B35.1 and Hallux valgus (acquired), right foot M20.[facility] [address] 07/02/2024 Alpa Perica [address] [address] 07/31/2024 Alpa Perica Cellulitis of toe of left foot L03.[address] [address] 07/31/2024 Alpa Perica Cellulitis of toe of left foot L03.[address] [address] 10/13/2024 Alpa Perica [address] [address] 11/03/2024 Alpa Avelar Assessments Encounter Date Diagnosis (ICD Code) Assessment Notes Treatment Notes Treatment Clinical Notes Section Notes 06/02/2024 Other hammer toe(s) (acquired), left foot [...] with diabetic polyneuropathy (ICD-10 - E11.42) 11/13/2024 Hammer toe of right foot (ICD-10 - M20.41) 11/13/2024 Neuropathic ulcer of right foot, limited to breakdown of skin (ICD-10 - L97.511) 01/13/2025 Other hammer toe(s) (acquired), right foot (ICD-10 - M20.41) 11/03/2024 Neuropathic ulcer of right foot, limited to breakdown of skin (ICD-10 - L97.511) 01/13/2025 Hallux valgus (acquired), left foot (ICD-10 - M20.12) 03/26/2025 Other hammer toe(s) (acquired), right foot (ICD-10 - M20.41) 03/26/2025 Hallux valgus (acquired), left foot (ICD-10 - M20.12) 11/13/2024 Type 2 diabetes mellitus with diabetic polyneuropathy (ICD-10 - E11.42) 03/26/2025 Other hammer toe(s) (acquired), left foot (ICD-10 - M20.42) 01/13/2025 Other hammer toe(s) (acquired), left foot (ICD-10 - M20.42) 11/03/2024 Tinea unguium (ICD-10 - B35.1) 10/23/2024 Type 2 diabetes mellitus with diabetic polyneuropathy (ICD-10 - E11.42) 08/07/2024 Tinea unguium (ICD-10 - B35.1) 06/02/2024 Type 2 diabetes mellitus with diabetic polyneuropathy (ICD-10 - E11.42) 06/02/2024 Tinea unguium (ICD-10 - B35.1) 08/07/2024 Other hammer toe(s) (acquired), left foot (ICD-10 - M20.42) 11/03/2024 Hammer toe of right foot (ICD-10 - M20.41) 01/13/2025 Type 2 diabetes mellitus with diabetic polyneuropathy (ICD-10 - E11.42) 11/13/2024 Other hammer toe(s) (acquired), left foot (ICD-10 - M20.42) 03/26/2025 Type 2 diabetes mellitus with diabetic polyneuropathy (ICD-10 - E11.42) 03/26/2025 Tinea unguium (ICD-10 - B35.1) 01/13/2025 Tinea unguium (ICD-10 - B35.1) 08/07/2024 Hammer toe of right foot (ICD-10 - M20.41) 06/02/2024 Other hammer toe(s) (acquired), right foot (ICD-10 - M20.41) 06/02/2024 Hallux valgus (acquired), right foot (ICD-10 - M20.11) 01/13/2025 Hallux valgus (acquired), right foot (ICD-10 - M20.11) 03/26/2025 Hallux valgus (acquired), right foot (ICD-10 - M20.11) 01/13/2025 Ingrown nail (ICD-10 - L60.0) 06/02/2024 Other 11/03/2024 Other Patient Educated with: WOUND CARE INSTRUCTIONS. pdf (WOUND CARE INSTRUCTIONS. pdf) 11/13/2024 Other Plan Of Treatment Pending Test Test Name Order Date X ray : Foot, left 3V 11/29/2023 58479-HPUODYE NAIL, 6 OR MORE 10/12/2022 55048-IYLFOPO NAIL, 6 OR MORE 06/11/2018 20341-HSAQVYG NAIL, 6 OR MORE 09/17/2018 84967-GNDMEGZ NAIL, 6 OR MORE 12/15/2018 49510-HGPREYA NAIL, 1-5 02/06/2016 09915-Qmvk Destruction, 1-14 05/19/2018 37998-Nwgy Destruction, 1-14 06/11/2018 48614-HSVL SKIN LESIONS, OVER 4 10/12/19 23 13940-PHQF SKIN LESIONS, 2 TO 4 12/16/19 19 07935-QADI SKIN LESIONS, 2 TO 4 06/11/20 18 25800-VYOH SKIN LESIONS, 2 TO 4 02/06/20 16 03498-AZVX SKIN LESIONS, 2 TO 4 09/17/19 19 C2840-OMBJILAG DYSTROPHIC NAILS ANY # 45070-ACNQLNIM OF HEMATOMA/FLUID 023 95466,P4900-GVV TENDON SHEATH/LIGAMENT 0 09/17/2018 97674,H8469-JQM TENDON SHEATH/LIGAMENT 0 12/15/2018 Next Appt Details Provider Name:Alpa phan, 07/06/2025 09:00:00 AM, [address] [place] [address], [place], [address], Insurance Providers Payer Name Payer Address Payer Phone Subscriber Number Group Number Insured Name Patient Relationship to Insured Coverage Start Date Coverage End Date Medicare National [employer] [address] [place] [place] [address] [phone] [id number] Chris Dawson Self - patient is the insured 2 for Life [address] [place] [address] [phone] [id number] Chris Dawson Self - patient is the [...] Retina surgery 05/09/2023 Hospitalization History Reason Date(Month/Year) urgent care- toe 10/13/24 [facility]- wound infection 0 02/27/24 [facility]/ Dehydration 07/19/22
--- OUTSIDE RECORDS SUMMARY | 2025-04-30 13:03 | XMS_ITS | Clinical Summary ---
Author Organization [facility] Address [address] [place] [address] Phone Care Team Providers Care Traveling Missionary Name Role Phone Jalil Ryan MD Primary Care Provider [phone] Allergies Active Allergy Reactions Criticality Noted Date [...] Diabetes: Visual Foot Exam 09/19/2020 Influenza Vaccine (#1) 2025 9, 04/22/2019, 05/05/2018, Additional history exists Hepatitis B Vaccine Aged Out No longe r eligible based on patient's age to complete this topic Procedures Procedure Name Priority Date/Time Associated Diagnosis Comments HEMOGLOBIN A1C Routine 02/02/2020 10:00 AM EDT from Last 3 Months or Most Recently Relevant to Health Maintenance Results * Hemoglobin A1c (02/02/2020 10:00 AM EDT) Hemoglobin A1C 6.4 % [place] Comment: Hemoglobin A1C Reference Range Adults: 4.8 - 6.0 % Non diabetic: < 6.0 % Goal: < 7.0 % Additional Action Suggested: > 8.0 % Note: Hemoglobin A1c results are invalid for patients with abnormal amounts of HbF. Blood transfusions may impact the HbA1c concentration in the patient sample. Estimated Average Glucose 137 MG/DL [facility] Comment: eAG = Estimated average glucose which is %A1C expressed as average glucose, using the formula of the [id number] Average Glucose study (ADAG), Diabetes Care, Vol.31,#8, Mar. 2007 02/02/2020 10:0 0 AM EDT us Hugo Reilly MD LAB BLOOD ORDERABLES Final Res ult [place] from Last 3 Months or Most Recently Relevant to Health Maintenance Insurance Medicare Member Subscriber Plan / Payer (Ef fective 2012-Present) Name:Chris Madrigal Member ID:[id number] Relation to Subscriber:Self Name:Chris Madrigal Subscriber ID:[id number] Payer ID:Not on file Group ID:Not on file Type:Not on file Address: [place] [phone] Medicare Care Teams Traveling Missionary Relationship Specialty Start Date End Date Jalil Ryan MD [address] [place] [address] [facility] - General Internal Medicine 01/25/21
[2025-04-30 13:56] LABS: Appearance Urine Clear; Glucose Urine UA >=1000 mg/dL (Negative); PH 6.5 (5.0-9.0); Specific Gravity - Urine 1.015 (1.005-1.025); UMIC TRIGGER UA YES
[2025-04-30 14:33] LABS: Total Protein Urine Random < 7 mg/dL (<12)
== END 2025-04-30 11:07 | disposition home or self-care (01) ==
LOC: HO.LAB 11:06
PROVIDERS: PCP Internal Medicine; Visit Provider Internal Medicine Hypertension Specialist
DX: N18.2 Chronic kidney disease, stage 2 (mild) (principal); N28.1 Cyst of kidney, acquired
CPT/HCPCS: 36415; 80053; 81001; 82570; 83970; 84156; 85025

== ENCOUNTER 2025-05-04 11:05 | Outpatient (AMB) | payer MEDICARE, OTHER, SELFPAY ==
--- OUTSIDE RECORDS SUMMARY | 2024-07-29 07:20 | XMS_ITS ---
Author Organization [facility] Address [address] [place] [address] Care Team Providers Care Deck Worker Name Role Phone Connor (RETIRED) , Jalil Primary Care Provider Unavailable Zurdo Frausto Jr REASON FOR VISIT Patient presents today for diarrhea Encounters Encounter Location Date Provider Diagnosis [facility] [address] [address] 07/29/2024 Zurdo Frausto Jr Plan Of Treatment Next Appt Details Provider Name:Zurdo milian Jr, 11/24/2025 09:00:00 AM, [address] [place] [address], [place] [address], [place], [address], Progress Notes * MARIA LUZ BRIGHT MDOB:[birth year] (79 yo M)Acc No.[id number]:07/29/2024 Progress Notes Patient: Tomás HART MARIA LUZ Bobby Provider: Yenny Frausto MD :1945 A ge:78 Y S ex:Male Date:07/29/2024 Address:[address] [place], [place] [phone] Pcp:Jalil Ryan (RETIRED) MD Subjective: * Chief [...] 09/29/2023 Generated for Candace prieto/Naveed/Topher on: 0 05/04/2025 03:04 PM EDT
--- OUTSIDE RECORDS SUMMARY | 2025-01-20 11:30 | XMS_ITS ---
Author Organization [facility] Address [address] [place] [address] Care Team Providers Care Operating Systems Specialist Name Role Phone Liu Tomlinson Primary Care Provider Alpa Avelar [phone] Encounters Encounter Location Date Provider Diagnosis [address] [address] 01/20/2025 Alpa Avelar Plan Of Treatment Next Appt Details Provider Name:Alpa phan, 07/06/2025 09:00:00 AM, [address] [place] [address], [phone], Progress Notes * DEANGELOChris RUDD MDOB:[birth year] (79 yo M)Acc No.[id number]:01/20/2025 Progress Note Patient: Chris MONTELONGO Provider: Ren Avelar DPM :1945 A ge:79 Y S ex:Male Date:01/20/2025 Address:[address] [place] [address], [phone] Pcp:Liu Tomlinson Subjective: * Chief Complaints: [...] 01/20/2025 Generated for Candace Barnes/Topher on: 0 05/04/2025 03:04 PM EDT
[2025-05-04 11:08] VITALS: BP 100/60; PULSE 68; O2SAT 98; BMI 27.7
--- NOTE | 2025-05-04 11:08 | HO.NEPHOV ---
Vital Signs 05/04/25 11:08 Height 5 ft 8 in Weight 182 lb BMI 27.7 BP 100/60 Blood Pressure Location Lt brachial Position Sitting Pulse 68 Pulse Source Pulse Oximeter Pulse Oximetry (%) 98 Oxygen Delivery Method Room Air Intake Visit Reasons: FU/ CONF Performance Improvement Coordinator Required: No Accompanied by: Self / Same As Patient Allergies demerol Allergy (Unknown, Uncoded 03/23/25 07:53) itching From DEMEROL Adverse Reaction (Mild, Uncoded 03/23/25 07:53) ITCHINESS Medication List - Last Reconciled 05/04/25 by Jovani Oneill MD amitriptyline 25 mg PO BEDTIME amlodipine 5 mg PO DAILY aspirin 81 mg PO DAILY atorvastatin 80 mg PO DAILY blood sugar diagnostic (FreeStyle Lite Strips) As directed citalopram 10 mg PO DAILY coenzyme Q10 (H2Q CoQ10) 100 mg PO cyclobenzaprine 10 mg PO TID PRN dicyclomine 10 mg PO DAILY empagliflozin (Jardiance) 25 mg PO DAILY ferrous sulfate 325 mg PO DAILY finasteride 5 mg PO DAILY furosemide 40 mg PO DAILY isosorbide mononitrate ER 120 mg PO DAILY metoprolol tartrate 100 mg PO BID mfeblyknwwjx-dhupygkq-utbzez 1 tab PO DAILY nitroglycerin mg sublingual pantoprazole 40 mg PO DAILY pregabalin 75 mg PO TID tamsulosin (Flomax) 0.4 mg PO DAILY tirzepatide 5 mg (0.5 mL) subcut QWEEK 4 weeks HPI Comments Details: Mariajose is a 78-year-old man with history of longstanding hypertension and diabetes mellitus complicated by coronary disease and mild CKD. He has pulmonary hypertension as well. He developed diarrhea with metformin which has improved. From a renal standpoint he is doing reasonably well. Continues have shortness of breath on exertion. He is being evaluated by Cardiology and Pulmonary. He is waiting for a 6 minutes stress test. 10/30: Now on Ozempic- self prescribed Also on Jardiance ;Diarrhea is better ;A1C is 5.8% 04/07/24; Off Benicar; Home BP is OK ; No further diarrhea ;No change in resp status ;c/o leg pain / ache when he walks 08/03/24;On ozempic ; No weight loss yet 11/10/24: Foot problems- seen by technology officer Still on Ozempic and no further weight loss. No more diarrhea HCT is still elevated 01/21/25 79-year-old male presenting with a follow-up on a renal cyst, chronic kidney disease, and diabetes mellitus. The renal cyst, approximately 1.1 cm, was first identified during a previous imaging study and has been regularly monitored. The patient has a history of chronic kidney disease with fluctuating creatinine levels between 1.3 and 1.5 mg/dL and a GFR of 45 to 55%. His diabetes mellitus further exacerbates his kidney condition, requiring cautious imaging strategies avoiding nephrotoxic contrast use. There are no reported symptoms related to the cyst or notable progression of kidney issues, but regular monitoring continues to be essential. 05/03/25 The patient is a 79-year-old male presenting with a follow-up for chronic kidney disease management, including diabetes and hypertension. Diabetes mellitus is managed with Mounjaro, with no significant weight loss yet but decreased appetite. Regular exercise includes cycling for half an hour every other day. Coronary artery disease is part of the patient's medical history. Hypertension is managed with amlodipine, currently being tapered due to low blood pressure. Amlodipine is reduced from 5 mg to 2.5 mg, with potential discontinuation if blood pressure remains low. Kidney cysts identified on ultrasound are benign, with a follow-up planned for May. Bunion causes discomfort due to toe friction. 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 [employer] Results: - Abdominal ultrasound in December showed benign kidney cysts [facility] Medical History (Updated 03/23/25 @ 07:54 by Liu Tomlinson MD) Diabetes mellitus HTN (hypertension) Family History Father Heart attack Diabetes Mother Heart attack Lung cancer Social History Patient Tobacco Use Status: Never used Tobacco e-Cigarette/Vaping Use: Never Used Physical Exam Vital Signs: Last Vital Signs Pulse 68 05/04/25 11:08 BP 100/60 05/04/25 11:08 Pulse Ox 98 05/04/25 11:08 Oxygen Delivery Method Room Air 05/04/25 11:08 BMI result Body Mass Index 27.7 Comfortable Neck supple no JVD. Lungs entry equal no rales. Heart S1-S2 heard no gallop or rub. Abdomen soft nontender. Neuro alert awake oriented. No asterixis. Extremities no edema. Results Reviewed Nephrology Results: Hgb, (14.0-18.0) 16.7 g/dl 04/30/25 WBC, (4.8-10.8) 6.6 X10*3/uL 04/30/25 Plt Count, (160-400) 119 X10*3/uL L 04/30/25 Sodium, (135-145) 140 mmol/L 04/30/25 Potassium, (3.3-5.1) 4.6 mmol/L 04/30/25 Chloride, (96-108) 104 mmol/L 04/30/25 Carbon Dioxide, (22-29) 28 mmol/L 04/30/25 BUN, (9-16) 19 mg/dL H 04/30/25 Creatinine, (0.5-1.4) 1.60 mg/dL H 04/30/25 Calcium, (8.4-10.2) 8.4 mg/dL 04/30/25 PTH Intact, (8.7-77.1) 164.4 pg/mL H 04/30/25 Urine Protein, (Neg-Trace) Negative mg/dL 04/30/25 Urine Creatinine 19.62 mg/dL 04/30/25 Assessment & Plan Assessment & Plan (1) CKD (chronic kidney disease) stage 2, GFR 60-89 ml/min: Code(s): N18.2 - Chronic kidney disease, stage 2 (mild) Category: Medical (2) Renal cyst: Code(s): N28.1 - Cyst of kidney, acquired Category: Medical (3) HTN (hypertension): Code(s): I10 - Essential (primary) hypertension Category: Medical (4) Obesity: Code(s): E66.9 - Obesity, unspecified Category: Medical Plan . 1. Hypertension. Blood pressure is acceptable 2. Nonischemic cardiomyopathy. Follow[facility]up with [facility]. 3. Chronic kidney disease stage 3. Serum creatinine stable at 1.54 in jul 2024 Now at 1.55 Fluid status is optimal. Next item no indication for a diuretic at this time. Will benefit from SGLT2 inhibitor. Continue to avoid nephrotoxic agents. 4. Polycythemia Hemoglobin is 17.2. ; Has follow-up appointment with Hematology 5. Diabetes mellitus. Recent A1C 6.7% ;Ozempic and the dose is being titrated. 6. Diarrhea has improved 7. Elevated LFTs- NEeds follow up with GI 8. Renal cyst- follow up USG ordered for 6 months May need evaluation based on USG 05/04/25 - Continue taking Mounjaro as prescribed and monitor for weight and appetite changes. - BP is LOW- Reduce amlodipine to 2.5 mg and monitor blood pressure regularly. - Schedule a follow-up ultrasound for kidney cysts in May. Orders: Orders US renal BI Today N28.1 - Cyst of kidney, acquired Medications: Changed From amlodipine 5 mg PO DAILY 90 tabs 3RF To amlodipine 2.5 mg PO DAILY 30 tabs 0RF Coding Level of Care Code Est Pt Level 4 (44661) Diagnoses CKD (chronic kidney disease) stage 2, GFR 60-89 ml/min N18.2 Renal cyst N28.1 HTN (hypertension) I10 Obesity E66.9
--- OUTSIDE RECORDS SUMMARY | 2025-05-04 15:04 | XMS_ITS | Encounter Summary ---
Author Organization [facility] Address [address] [facility] [address] [place] [address] Phone Care Team Providers Care Adjunct Trainer Name Role Phone Jalil Ryan MD Primary Care Provider [phone] Encounter Details Date Type Department Care Team (Late st Contact Info) Description 02/17/2021 Orders Only [facility] [address] [place] [id number] Jovani Oneill MD Hypertensive chronic kidney disease, [...] unspecified documented in this encounter Care Teams Adjunct Trainer Relationship Specialty Start Date End Date Jalil Ryan MD [address] [place] [address] [address] [place] PCP - General Internal Medicine 01/25/21 documented as of this encounter
--- OUTSIDE RECORDS SUMMARY | 2025-05-04 15:04 | XMS_ITS | Patient Health Record ---
Author Organization [facility] Address [address] [place] [address] Care Team Providers Care Jig Boring Machine Operator For Metal Name Role Phone Connor (RETIRED) , Jalil Primary Care Provider Unavailable Zurdo Frausto Jr Unavailable Allergies Allergen (clinical drug ingredient) Drug/Non Drug Allergy documented on EMR Reaction Allergy Type Onset Date Status meperidine Demerol Unknown Drug Allergy Active Results Component Value Reference Range Notes US abdomen complete Reviewed date:12/31/2024 10:36:45 AM Interpretation: Performing Lab: Notes/Report: [address] [address] Ultrasound Report Signed Patient: Chris Madrigal MR#: [id number] : 1945 Acct:[id number] Age/Sex: 79 / M ADM Date: 12/30/24 Loc: HO.US Attending Dr: Zurdo Frausto MD Ordering Physician: Zurdo Frausto MD Date of Service: 12/30/24 Procedure(s): US abdomen complete Accession Number(s): [id number] cc: Zurdo Frausto MD; Jalil Ryan MD [...] 12/30/24 0908 DD/ 0839 TD/TT: 12/30/24 0855 Barrow Worker: Reason For Referral No Information Medications Medication [...] Problem Status W/U Status Risk Notes Problem 897616301 Gastroesophageal reflux disease without esophagitis (K21.9) Active confirmed Problem 08213007 Diarrhea, unspecified type (R19.7) Active confirmed Problem Incontinence of feces (42786669) Incontinence of feces, unspecified fecal incontinence type (R15.9) Active confirmed Problem 733329061 Abnormal LFTs (R79.89) Active confirmed Vital Signs Temperature 96.9 degrees Fahrenheit 11/23/2024 Blood pressure diastolic 01 mm Hg 11/23/2024 Height 68 in 11/23/2024 Blood pressure systolic 001 mm Hg 11/23/2024 Weight 188.4 lbs 11/23/2024 BMI 28.64 kg/m2 11/23/2024 Encounters Encounter Location Date Provider Diagnosis [facility] [address] [place] [address] 11/23/2024 Zurdo Frausto Jr Abnormal LFTs R79.89 ; Gastroesophageal reflux disease without esophagitis K21.9 and Diarrhea, unspecified type R19.7 [facility] [address] [place] [address] 12/31/2024 Zurdo Frausto Jr Assessments Encounter Date [...] Name:Zurdo milian Jr, 11/24/2025 09:00:00 AM, [address], [address], [place], [address], Insurance Providers Payer Name Payer Address Payer Phone Subscriber Number Group Number Insured Name Patient Relationship to Insured Coverage Start Date Coverage End Date MEDICARE OF [place] [address] [place] [address] [phone] [id number] CHRIS CONNOR Self - patient is the insured [employer] [address] [place] [address] [id number] CHRIS CONNOR Self - patient is the [...]
--- OUTSIDE RECORDS SUMMARY | 2025-05-04 15:04 | XMS_ITS | Encounter Summary ---
Author Organization [facility] Address [address] [place] [address] Care Team Providers Care Seo Specialist Name Role Phone Unavailable Primary Care Provider Unavailabl e Encounter Details Date Type Department Care Team (Late st Contact Info) Description 08/27/2024 Lab Requisition [facility] [address] [place] [address] Cash Cerna MD [address] [facility] [address] [place] [address] Malignant neoplasm of posterior wall [...] AM EST) Final Diagnosis A. Urine, Voided, ([id number]): Negative for high grade urothelial carcinoma. Scant urothelial cells. Results of UroVysion fluorescence in situ hybridization (FISH) testing: CEP3: Normal CEP7: Normal CEP17: Normal LSI 9p21: Normal Interpretation: Normal profile Controls stained appropriately. Note: The results are intended as a screening device and should be interpreted in association with other clinical and pathological findings. 09/08/2024 9:02 AM EST [facility] Clinical Information History of bladder neoplasm (malignant) Z85.51 Malignant neoplasm of posterior C67.4 Cytology/FISH 09/08/2024 9:02 AM [facility] Gross Description A. Urine, Voided, ([id number]): Received 1 TP (CYTO) 1 TP (FISH) 09/08/2024 9:02 AM [facility] Disclaimer Unless otherwise specified, all tissue is 10% NB formalin fixed and paraffin embedded. Technical pathology services provided by [facility] at [address] [place] [address] [address], [place] [address] (CLIA #[id number]/Sari Looney MD, Abrasive Water Jet Cutter Operator) 09/08/2024 9:02 AM [facility] Tissue Urine specimen from urethra / Unknown 08/18/2024 08/27/2024 4:10 PM EST us Cash Cerna MD LAB PATHOLOGY ORDERABLES Final Result [facility] [address] [place] [address], documented in this encounter Visit Diagnoses Diagnosis Malignant neoplasm of posterior wall of bladder (CMS/HCC V24, CMS/HCC V28) Malignant neoplasm of posterior wall of urinary bladder Personal history of malignant neoplasm of bladder documented in this encounter
--- OUTSIDE RECORDS SUMMARY | 2025-05-04 15:04 | XMS_ITS | Clinical Summary ---
Author Organization [address] Address [address] [place] [address] Phone Care Team Providers Care Accounts Executive Name Role Phone Unavailable Primary Care Provider [...] age to complete this topic Insurance MEDICARE [facility]
--- OUTSIDE RECORDS SUMMARY | 2025-05-04 15:05 | XMS_ITS | Clinical Summary ---
Author Organization [facility] Address [address] [place] [address] Phone Care Team Providers Care Door Closer Name Role Phone aJlil Ryan MD Primary Care Provider [phone] Allergies Active Allergy Reactions Criticality Noted Date [...] average glucose, using the formula of the J2A-Fhrpptp Average Glucose study (ADAG), Diabetes Care, Vol.31,#8, Mar. 2007 02/02/2020 10:0 0 AM EDT us Hugo Reilly MD LAB BLOOD ORDERABLES Final Res ult [place] from Last 3 Months or Most Recently Relevant to Health Maintenance Insurance Medicare Member Subscriber Plan / Payer (Ef fective 2012-Present) Name:Chris Madrigal Member ID:[id number] Relation to Subscriber:Self Name:Chris Madrigal Subscriber ID:[id number] Payer ID:Not on file Group ID:Not on file Type:Not on file Address: [place] [phone] Medicare Care Teams Door Closer Relationship Specialty Start Date End Date Jalil Ryan MD [address] [place] [address] KATELYNN Nunez [facility] PCP - General Internal Medicine 01/25/21
--- OUTSIDE RECORDS SUMMARY | 2025-05-04 15:05 | XMS_ITS | Patient Health Record ---
Author Organization [facility] Address [address] [place] [address] Care Team Providers Care Turn Machine Operator Name Role Phone Liu Tomlinson Primary Care Provider Alpa Avelar [phone] Allergies Allergen (clinical drug ingredient) Drug/Non Drug [...] Polyneuropathy due to type 2 diabetes mellitus (546809957) Type 2 diabetes mellitus with diabetic polyneuropathy (E11.42) Active confirmed Vital Signs Blood pressure diastolic 76 mm Hg 03/26/2025 Height 5ft 8in in 03/26/2025 Blood pressure systolic 121 mm Hg 03/26/2025 Weight 179 lbs 03/26/2025 BMI 27.21 kg/m2 03/26/2025 Encounters Encounter Location Date Provider Diagnosis [address] [address] 06/02/2024 Alpa Avelar Other hammer toe(s) (acquired), left foot M20.42 ; Hallux valgus (acquired), left foot M20.12 ; Type 2 diabetes mellitus with diabetic polyneuropathy E11.42 ; Tinea unguium B35.1 ; Other hammer toe(s) (acquired), right foot M20.41 and Hallux valgus (acquired), right foot M20.[address] [address] 07/24/2024 Alpa Perica Neurotrophic ulcer o f left foot limited to breakdown of skin L97.521 and Type 2 diabetes mellitus with diabetic polyneuropathy E11.[address] [address] 08/07/2024 Alpa Perica Neurotrophic ulcer o f left foot limited to breakdown of skin L97.521 ; Type 2 diabetes mellitus with diabetic polyneuropathy E11.42 ; Tinea unguium B35.1 ; Other hammer toe(s) (acquired), left foot M20.42 and Hammer toe of right foot M20.[address] [address] 10/23/2024 Alpa Perica Neuropathic ulcer of right foot, limited to breakdown of skin L97.511 and Type 2 diabetes mellitus with diabetic polyneuropathy E11.[address] [address] 11/03/2024 Alpa Perica Type 2 diabetes mellitus with diabetic polyneuropathy E11.42 ; Neuropathic ulcer of right foot, limited to breakdown of skin L97.511 ; Tinea unguium B35.1 and Hammer toe of right foot M20.[address] [address] 11/13/2024 Alpa Perica Neuropathic ulcer of right foot, limited to breakdown of skin L97.511 ; Hammer toe of right foot M20.41 ; Type 2 diabetes mellitus with diabetic polyneuropathy E11.42 and Other hammer toe(s) (acquired), left foot M20.[address] [address] 01/13/2025 Alpa Perica Hallux valgus (acquired), left foot M20.12 ; Other hammer toe(s) (acquired), right foot M20.41 ; Other hammer toe(s) (acquired), left foot M20.42 ; Type 2 diabetes mellitus with diabetic polyneuropathy E11.42 ; Tinea unguium B35.1 ; Hallux valgus (acquired), right foot M20.11 and Ingrown nail L60.[address] [facility] [address] 03/26/2025 Alpa Perica Hallux valgus (acquired), left foot M20.12 ; Other hammer toe(s) (acquired), right foot M20.41 ; Other hammer toe(s) (acquired), left foot M20.42 ; Type 2 diabetes mellitus with diabetic polyneuropathy E11.42 ; Tinea unguium B35.1 and Hallux valgus (acquired), right foot M20.[address] [facility] [address] 07/02/2024 Alpa Perica [address] [address] 07/31/2024 Alpa Perica Cellulitis of toe of left foot L03.[address] [address] 07/31/2024 Alpa Perica Cellulitis of toe of left foot L03.[address] [address] 10/13/2024 Alpa Perica [address] [address] 11/03/2024 Alpa Avelar Assessments Encounter Date Diagnosis (ICD Code) Assessment Notes Treatment Notes Treatment Clinical Notes Section Notes 07/24/2024 Type 2 diabetes mellitus with diabetic polyneuropathy (ICD-10 - E11.42) 07/24/2024 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 pdf (WOUND CARE INSTRUCTIONS. 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 pdf (WOUND CARE INSTRUCTIONS. pdf) 06/02/2024 Other hammer toe(s) (acquired), left foot (ICD-10 - M20.42) 06/02/2024 Hallux valgus (acquired), left foot (ICD-10 - M20.12) 06/02/2024 Type 2 diabetes mellitus with diabetic polyneuropathy (ICD-10 - E11.42) 08/07/2024 Tinea unguium (ICD-10 - B35.1) 11/13/2024 Type 2 diabetes mellitus with diabetic polyneuropathy (ICD-10 - E11.42) 03/26/2025 Other hammer toe(s) (acquired), left foot (ICD-10 - M20.42) 01/13/2025 Other hammer toe(s) (acquired), left foot (ICD-10 - M20.42) 11/03/2024 Tinea unguium (ICD-10 - B35.1) 10/23/2024 Type 2 diabetes mellitus with diabetic polyneuropathy (ICD-10 - E11.42) 11/03/2024 Hammer toe of right foot (ICD-10 - M20.41) 01/13/2025 Type 2 diabetes mellitus with diabetic polyneuropathy (ICD-10 - E11.42) 11/13/2024 Other hammer toe(s) (acquired), left foot (ICD-10 - M20.42) 03/26/2025 Type 2 diabetes mellitus with diabetic polyneuropathy (ICD-10 - E11.42) 08/07/2024 Other hammer toe(s) (acquired), left foot (ICD-10 - M20.42) 06/02/2024 Tinea unguium (ICD-10 - B35.1) 06/02/2024 Other hammer toe(s) (acquired), right foot (ICD-10 - M20.41) 08/07/2024 Hammer toe of right foot (ICD-10 - M20.41) 03/26/2025 Tinea unguium (ICD-10 - B35.1) 01/13/2025 Tinea unguium (ICD-10 - B35.1) 01/13/2025 Hallux valgus (acquired), right foot (ICD-10 - M20.11) 03/26/2025 Hallux valgus (acquired), right foot (ICD-10 - M20.11) 06/02/2024 Hallux valgus (acquired), right foot (ICD-10 - M20.11) 01/13/2025 Ingrown nail (ICD-10 - L60.0) 06/02/2024 Other 11/03/2024 Other Patient Educated with: WOUND CARE INSTRUCTIONS. pdf (WOUND CARE INSTRUCTIONS. pdf) 11/13/2024 Other Plan Of Treatment Pending Test Test Name Order Date X ray : Foot, left 3V 11/29/2023 44481-[id number] NAIL, 6 OR MORE 10/12/2022 46749-TXXRQZV NAIL, 6 OR MORE 06/11/2018 46755-QXYZYXM NAIL, 6 OR MORE 09/17/2018 30335-SKTHCUP NAIL, 6 OR MORE 12/15/2018 64581-XWNUIXO NAIL, 1-5 02/06/2016 71562-Sedr Destruction, 1-14 05/19/2018 12498-Odfg Destruction, 1-14 06/11/2018 51582-KBQJ SKIN LESIONS, OVER 4 10/12/19 23 58603-EMJZ SKIN LESIONS, 2 TO 4 12/16/19 19 52618-TLKM SKIN LESIONS, 2 TO 4 06/11/20 18 33132-PEUI SKIN LESIONS, 2 TO 4 02/06/20 16 71871-XWVN SKIN LESIONS, 2 TO 4 09/17/19 19 U3894-CNCIEEDB DYSTROPHIC NAILS ANY # 82959-DIGJYILF OF HEMATOMA/FLUID 023 30301,P2280-KSC TENDON SHEATH/LIGAMENT 0 09/17/2018 23318,K3028-BBU TENDON SHEATH/LIGAMENT 0 12/15/2018 Next Appt Details Provider Name:Alpa phan, 07/06/2025 09:00:00 AM, [address] [place] [address], [place], [address], Insurance Providers Payer Name Payer Address Payer Phone Subscriber Number Group Number Insured Name Patient Relationship to Insured Coverage Start Date Coverage End Date Medicare National [employer] [address] [place] [phone] [id number] Chris Dawson Self - patient is the insured 2 for Life [address] [place] [address] [id number] Chris Dawson Self - patient is the [...] History Reason Date(Month/Year) urgent care- toe 10/13/24 [facility]- wound infection 0 02/27/24 [facility]/ Dehydration 07/19/22
== END 2025-05-04 11:30 | disposition home or self-care (01) ==
LOC: HO.HKA 11:05
PROVIDERS: PCP Family Medicine; Visit Provider Internal Medicine Hypertension Specialist
DX: I12.9 Hypertensive chronic kidney disease with stage 1 through stage 4 chronic kidney disease, or unspecified chronic kidney disease (principal); N18.2 Chronic kidney disease, stage 2 (mild); N28.1 Cyst of kidney, acquired; E66.9 Obesity, unspecified
CPT/HCPCS: 99214

== ENCOUNTER → 2025-05-04 11:05 | Outpatient (BNVA) | payer MEDICARE, OTHER, SELFPAY | PROVIDERS: PCP Family Medicine; Visit Provider Internal Medicine Hypertension Specialist | DX: I10 Essential (primary) hypertension (principal); N18.30 Chronic kidney disease, stage 3 unspecified; N28.1 Cyst of kidney, acquired; E66.9 Obesity, unspecified; E11.9 Type 2 diabetes mellitus without complications; R19.7 Diarrhea, unspecified; R79.89 Other specified abnormal findings of blood chemistry; I42.8 Other cardiomyopathies; D45 Polycythemia vera | CPT/HCPCS: 99212 ==

== ENCOUNTER 2025-05-31 12:44 | Outpatient (REF) | payer MEDICARE, OTHER, SELFPAY ==
--- NOTE | ~2025-05-31 | US_ITS ---
CLINICAL HISTORY: N28.1 - Cyst of kidney, acquired --- Additional Notes or Special Instructions: follow up for renal cyst- Retroperitoneal ultrasound Comparison: 12/30/24 Findings: The kidneys are normal in echotexture bilaterally. No hydronephrosis. The right kidney is normal in size, measuring 11.3cm in length. The left kidney is normal in size, measuring 11.5cm in length. Midportion cyst measuring 2.2 x 1.5 x 1.7 cm with thin internal septations, Previously measuring 2.9 x 2.0 x 2.1 cm. Midportion cyst measuring 0.9 x 1.0 x 1.3 cm with thin internal septations, previously measuring 1.5 x 1.1 x 1.6 cm. Impression: No acute findings. Cysts in the left kidney with thin internal septations, similar to the prior study. This document has been electronically signed by: Sosa Bruno MD on 05/31/2025 13:36:43
--- OUTSIDE RECORDS SUMMARY | 2025-05-31 12:46 | XMS_ITS | Encounter Summary ---
Author Organization [facility] Address [address] [facility] [address] [place] [address] Phone Care Team Providers Care Adon Name Role Phone Jalil Ryan MD Primary Care Provider [phone] Encounter Details Date Type Department Care Team (Late st Contact Info) Description 02/17/2021 Orders Only [facility] [address] [place] [address] Jovani Oneill MD Hypertensive chronic kidney disease, [...] unspecified documented in this encounter Care Teams Adon Relationship Specialty Start Date End Date Jalil Ryan MD [address] [place] [address] [address] [place] PCP - General Internal Medicine 01/25/21 documented as of this encounter
--- OUTSIDE RECORDS SUMMARY | 2025-05-31 12:47 | XMS_ITS | Patient Health Record ---
Author Organization [facility] Address [address] [place] [address] Care Team Providers Care Personal Lines Account Manager Name Role Phone Connor (RETIRED) , Jalil Primary Care Provider Unavailable Zurdo Frausto Jr Unavailable Allergies Allergen (clinical drug ingredient) Drug/Non Drug Allergy documented on EMR Reaction Allergy Type Onset Date Status meperidine Demerol Unknown Drug Allergy Active Results Component Value Reference Range Notes US abdomen complete Reviewed date:12/31/2024 10:36:45 AM Interpretation: Performing Lab: Notes/Report: [address] [address] Ultrasound Report Signed Patient: Chris Madrigal MR#: [id number] : 1945 Acct:[id number] Age/Sex: 79 / M ADM Date: 12/30/24 Loc: HO.US Attending Dr: Zurdo Frausto MD Ordering Physician: Zurdo Frausto MD Date of Service: 12/30/24 Procedure(s): US abdomen complete Accession Number(s): [id number] cc: Zurdo Frausto MD; Jalil Ryan MD [...] 12/30/24 0908 DD/ 0839 TD/TT: 12/30/24 0855 Donor Services Technician: Reason For Referral No Information Medications Medication SIG (Take, Route, Frequency, Duration) Notes Start Date End Date Status Ozempic (1 MG/DOSE) 4 MG/3ML as directed Subcutaneous Act noel Centrum Silver 50+Men - as directed Orally Active Benicar 20 MG 1 tablet Orally Once a day; Duration: 30 day(s) Active CoQ-10 100 MG as directed Orally Active Lopressor 100 MG 1 tablet with food O rally Twice a day; Duration: 30 day(s) Active Lasix 40 MG 1 tablet Orally Once a day Active Ferrous Gluconate 324 (38 Fe) MG 1 tablet with water or juice between meals Orally Once a day; Duration: 30 day(s) Active Pantoprazole Sodium 40 MG 1 tablet 1/2 t o 1 hour before morning meal Orally Once a day Active Probiotic - as directed Orally Active Aspirin 81 81 MG 1 tablet Orally Once a day; Duration: 30 day(s) Active Dicyclomine HCl 10 MG 2 capsules Orally Three times a day Active Isosorbide Mononitrate ER 120 MG 1 tablet in the morning Orally Once a day; Duration: 30 day(s) Active Flomax 0.4 MG 1 capsule Orally Onc e a day Active Finasteride 5 MG 1 tablet Orally Once a day; Duration: 30 day(s) Active Alpha Lipoic Acid 200 MG 1 capsule Orall y Once a day Active Citalopram Hydrobromide 10 MG/5ML 5 mL Orally Once a day; Duration: 30 day(s) Active Amitriptyline HCl 25 MG 1 tablet at bedt dayana Orally Once a day Active Lyrica 75 MG 1 capsule Orally Twi ce a day Active Lipitor 80 MG 1 tablet Orally Once a day; Duration: 30 day(s) Active Jardiance 25 MG 1 tablet Orally Once a day; Duration: 30 days Active Norvasc 5 MG 1 tablet Orally Once a day; Duration: 30 day(s) Active Benefiber Drink Mix - as directed Orally Active Questran 4 GM 1 packet mixed with water or non-carbonated drink Orally Once a day; Duration: 30 day(s) Active Immunizations Vaccine Route Administration [...] Problem Status W/U Status Risk Notes Problem Gastroesophageal reflux disease without esophagitis (641444093) Gastroesophageal reflux disease without esophagitis (K21.9) Active confirmed Problem Diarrhea (06214487) Diarrhea, unspecified type (R19.7) Active confirmed Problem Incontinence of feces (93233571) Incontinence of feces, unspecified fecal incontinence type (R15.9) Active confirmed Problem Liver function tests abnormal (766263790) Abnormal LFTs (R79.89) Active confirmed Vital Signs Temperature 96.9 degrees Fahrenheit 11/23/2024 Blood pressure diastolic 01 mm Hg 11/23/2024 Height 68 in 11/23/2024 Blood pressure systolic 001 mm Hg 11/23/2024 Weight 188.4 lbs 11/23/2024 BMI 28.64 kg/m2 11/23/2024 Encounters Encounter Location Date Provider Diagnosis [facility] [address] [place] [address] 11/23/2024 Zurdo Frausto Jr Abnormal LFTs R79.89 ; Gastroesophageal reflux disease without esophagitis K21.9 and Diarrhea, unspecified type R19.7 [facility] [address] [place] [address] 12/31/2024 Zurdo Frausto Jr Assessments Encounter Date [...] Name:Zurdo milian Jr, 11/24/2025 09:00:00 AM, [address], [address], [place], [address], Insurance Providers Payer Name Payer Address Payer Phone Subscriber Number Group Number Insured Name Patient Relationship to Insured Coverage Start Date Coverage End Date MEDICARE OF [facility] [address] [place] [address] [id number] CHRIS CONNOR Self - patient is the insured [employer] [address] [place] [address] [id number] CHRIS CONNOR Self - patient is the [...]
--- OUTSIDE RECORDS SUMMARY | 2025-05-31 12:47 | XMS_ITS | Encounter Summary ---
Author Organization [facility] Address [address] [place] [address] Care Team Providers Care Print Color Operator Name Role Phone Unavailable Primary Care Provider Unavailabl e Encounter Details Date Type Department Care Team (Late st Contact Info) Description 08/27/2024 Lab Requisition [facility] [address] [place] [address] Cash Cerna MD [address] [facility] [address] [place] [address] Malignant neoplasm of posterior wall [...] AM EST) Final Diagnosis A. Urine, Voided, ([id number]): Negative for high grade urothelial carcinoma. Scant urothelial cells. Results of UroVysion fluorescence in situ hybridization (FISH) testing: CEP3: Normal CEP7: Normal CEP17: Normal LSI 9p21: Normal Interpretation: Normal profile Controls stained appropriately. Note: The results are intended as a screening device and should be interpreted in association with other clinical and pathological findings. 09/08/2024 9:02 AM EST [facility] Clinical Information History of bladder neoplasm (malignant) Z85.51 Malignant neoplasm of posterior C67.4 Cytology/FISH 09/08/2024 9:02 AM [facility] Gross Description A. Urine, Voided, ([id number]): Received 1 TP (CYTO) 1 TP (FISH) 09/08/2024 9:02 AM [facility] Disclaimer Unless otherwise specified, all tissue is 10% NB formalin fixed and paraffin embedded. Technical pathology services provided by [facility] at [address] [place] [address] [address], [place] [address] (CLIA #[id number]/Sari Looney MD, Charge Account Clerk) 09/08/2024 9:02 AM [facility] Tissue Urine specimen from urethra / Unknown 08/18/2024 08/27/2024 4:10 PM EST us Cash Cerna MD LAB PATHOLOGY ORDERABLES Final Result [facility] [address] [place] [address], documented in this encounter Visit Diagnoses Diagnosis Malignant neoplasm of posterior wall of bladder (CMS/HCC V24, CMS/HCC V28) Malignant neoplasm of posterior wall of urinary bladder Personal history of malignant neoplasm of bladder documented in this encounter
--- OUTSIDE RECORDS SUMMARY | 2025-05-31 12:47 | XMS_ITS | Clinical Summary ---
Author Organization [address] Address [address] [place] [address] Phone Care Team Providers Care Lithographic Press Feeder Name Role Phone Unavailable Primary Care Provider [...] age to complete this topic Insurance MEDICARE [facility]
--- OUTSIDE RECORDS SUMMARY | 2025-05-31 12:47 | XMS_ITS | Clinical Summary ---
Author Organization [facility] Address [address] [place] [address] Phone Care Team Providers Care Yeast Maker Name Role Phone Jalil Ryan MD Primary Care Provider [phone] Allergies Active Allergy Reactions Criticality Noted Date [...] average glucose, using the formula of the N2Y-Qlhjetj Average Glucose study (ADAG), Diabetes Care, Vol.31,#8, Mar. 2007 02/02/2020 10:0 0 AM EDT us Hugo Reilly MD LAB BLOOD ORDERABLES Final Res ult [place] from Last 3 Months or Most Recently Relevant to Health Maintenance Insurance Medicare Member Subscriber Plan / Payer (Ef fective 2012-Present) Name:Chris Madrigal Member ID:[id number] Relation to Subscriber:Self Name:Chris Madrigal Subscriber ID:[id number] Payer ID:Not on file Group ID:Not on file Type:Not on file Address: [place] [address] Medicare Care Teams Yeast Maker Relationship Specialty Start Date End Date Jalil Ryan MD [address] [place] [address] [facility] [place] P[facility] - General Internal Medicine 01/25/21
--- OUTSIDE RECORDS SUMMARY | 2025-05-31 12:47 | XMS_ITS | Patient Health Record ---
Author Organization [facility] Address [address] [place] [address] Care Team Providers Care Cob Sawyer Name Role Phone Liu Tomlinson Primary Care Provider [phone] Alpa Avelar [phone] Allergies Allergen (clinical drug ingredient) Drug/Non Drug [...] Polyneuropathy due to type 2 diabetes mellitus (020853590) Type 2 diabetes mellitus with diabetic polyneuropathy (E11.42) Active confirmed Vital Signs Blood pressure diastolic 76 mm Hg 03/26/2025 Height 5ft 8in in 03/26/2025 Blood pressure systolic 121 mm Hg 03/26/2025 Weight 179 lbs 03/26/2025 BMI 27.21 kg/m2 03/26/2025 Encounters Encounter Location Date Provider Diagnosis [address] [address] 06/02/2024 Alpa Avelar Other hammer toe(s) (acquired), left foot M20.42 ; Hallux valgus (acquired), left foot M20.12 ; Type 2 diabetes mellitus with diabetic polyneuropathy E11.42 ; Tinea unguium B35.1 ; Other hammer toe(s) (acquired), right foot M20.41 and Hallux valgus (acquired), right foot M20.[address] [address] 07/24/2024 Alpa Perica Neurotrophic ulcer o f left foot limited to breakdown of skin L97.521 and Type 2 diabetes mellitus with diabetic polyneuropathy E11.[address] [address] 08/07/2024 Alpa Perica Neurotrophic ulcer o f left foot limited to breakdown of skin L97.521 ; Type 2 diabetes mellitus with diabetic polyneuropathy E11.42 ; Tinea unguium B35.1 ; Other hammer toe(s) (acquired), left foot M20.42 and Hammer toe of right foot M20.[address] [address] 10/23/2024 Alpa Perica Neuropathic ulcer of right foot, limited to breakdown of skin L97.511 and Type 2 diabetes mellitus with diabetic polyneuropathy E11.[address] [address] 11/03/2024 Alpa Perica Type 2 diabetes mellitus with diabetic polyneuropathy E11.42 ; Neuropathic ulcer of right foot, limited to breakdown of skin L97.511 ; Tinea unguium B35.1 and Hammer toe of right foot M20.[address] [address] 11/13/2024 Alpa Perica Neuropathic ulcer of right foot, limited to breakdown of skin L97.511 ; Hammer toe of right foot M20.41 ; Type 2 diabetes mellitus with diabetic polyneuropathy E11.42 and Other hammer toe(s) (acquired), left foot M20.[address] [address] 01/13/2025 Alpa Perica Hallux valgus (acquired), left foot M20.12 ; Other hammer toe(s) (acquired), right foot M20.41 ; Other hammer toe(s) (acquired), left foot M20.42 ; Type 2 diabetes mellitus with diabetic polyneuropathy E11.42 ; Tinea unguium B35.1 ; Hallux valgus (acquired), right foot M20.11 and Ingrown nail L60.[address] [facility] [address] 03/26/2025 Alpa Perica Hallux valgus (acquired), left foot M20.12 ; Other hammer toe(s) (acquired), right foot M20.41 ; Other hammer toe(s) (acquired), left foot M20.42 ; Type 2 diabetes mellitus with diabetic polyneuropathy E11.42 ; Tinea unguium B35.1 and Hallux valgus (acquired), right foot M20.11 [facility] [address] 07/02/2024 Alpa Perica [address] [address] 07/31/2024 Alpa Perica Cellulitis of toe of left foot L03.[address] [address] 07/31/2024 Alpa Perica Cellulitis of toe of left foot L03.[address] [address] 10/13/2024 Alpa Perica [address] [address] 11/03/2024 Alpa Avelar Assessments Encounter Date Diagnosis [...] X ray : Foot, left 3V 11/29/2023 75251-JRRJEOO NAIL, 6 OR MORE 10/12/2022 26204-YYWKXKB NAIL, 6 OR MORE 06/11/2018 84323-OHFFXSH NAIL, 6 OR MORE 09/17/2018 12804-VQAILMY NAIL, 6 OR MORE 12/15/2018 73046-FCESRIY NAIL, 1-5 02/06/2016 09792-Xwfe Destruction, 1-14 05/19/2018 35441-Vkji Destruction, 1-14 06/11/2018 52608-LIWA SKIN LESIONS, OVER 4 10/12/19 23 81788-IWLJ SKIN LESIONS, 2 TO 4 12/16/19 19 10137-SZRQ SKIN LESIONS, 2 TO 4 06/11/20 18 07666-FIEU SKIN LESIONS, 2 TO 4 02/06/20 16 34353-HIWU SKIN LESIONS, 2 TO 4 09/17/19 19 C5288-TXSAAMZC DYSTROPHIC NAILS ANY # 59144-QISUYACA OF HEMATOMA/FLUID 023 34108,Y5929-EIX TENDON SHEATH/LIGAMENT 0 09/17/2018 22779,F4067-KVL TENDON SHEATH/LIGAMENT 0 12/15/2018 Next Appt Details Provider Name:Alpa phan, 07/06/2025 09:00:00 AM, [address] [place] [address], [place], [address], Insurance Providers Payer Name Payer Address Payer Phone Subscriber Number Group Number Insured Name Patient Relationship to Insured Coverage Start Date Coverage End Date Medicare National [employer] [address] [place] [address] [phone] [id number] Chris Dawson Self - patient is the insured 2 for Life [address] [place] [address] [id number] Chris Dawson Self - patient is the [...] History Reason Date(Month/Year) urgent care- toe 10/13/24 [facility]- wound infection 0 02/27/24 [facility]/ Dehydration 07/19/22
== END 2025-05-31 12:45 | disposition home or self-care (01) ==
LOC: HO.US 12:44
PROVIDERS: PCP Internal Medicine; Visit Provider Internal Medicine Hypertension Specialist
DX: N28.1 Cyst of kidney, acquired (principal)
CPT/HCPCS: 76775

== ENCOUNTER → 2025-05-31 12:46 | Outpatient (BNV) | payer MEDICARE, OTHER, SELFPAY | PROVIDERS: PCP Internal Medicine; Visit Provider Radiology Diagnostic Radiology | DX: N28.1 Cyst of kidney, acquired (principal) | CPT/HCPCS: 76775 ==

== ENCOUNTER 2025-06-07 13:39 | Outpatient (AMB) | payer MEDICARE, OTHER, SELFPAY ==
--- OUTSIDE RECORDS SUMMARY | 2024-07-29 07:20 | XMS_ITS ---
Author Organization [facility] Address [address] [place] [id number] Care Team Providers Care Product Manager Medical Device Name Role Phone Connor (RETIRED) , Jalil Primary Care Provider Unavailable Zurdo Frausto Jr REASON FOR VISIT Patient presents today for diarrhea Encounters Encounter Location Date Provider Diagnosis [facility] [address] [id number] 07/29/2024 Zurdo Frausto Jr Plan Of Treatment Next Appt Details Provider Name:Zurdo milian Jr, 11/24/2025 09:00:00 AM, [address] [place] [address], [place] [address], [place], [id number], Progress Notes * MARIA LUZ BRIGHT MDOB:[birth year] (79 yo M)Acc No.[id number]:07/29/2024 Progress Notes Patient: Tomás HART MARIA LUZ Bobby Provider: Yenny Frausto MD :1945 A ge:78 Y S ex:Male Date:07/29/2024 Address:[address] [place], [place] [id number] Pcp:Jalil Ryan (RETIRED) MD Subjective: * Chief Complaints: * 1 . Patient presents today for diarrhea. * Medical History: Objective: * Vitals: Assessment: Plan: * Treatment: * * The named appointment provid er may or may not be the originator of this progress note, and it is not deemed complete until electronically signed by the appointment provider. Sign off status: Pending * Provider: Yenny Frausto MD Date: 1 09/29/2023 Generated for Candace prieto/Naveed/Topher on: 04:49 PM EDT
--- OUTSIDE RECORDS SUMMARY | 2025-01-20 11:30 | XMS_ITS ---
Author Organization [facility] Address [address] [place] [address] Care Team Providers Care Construction Project Manager Name Role Phone Liu Tomlinson Primary Care Provider Alpa Avelar [phone] Encounters Encounter Location Date Provider Diagnosis [address] [address] 01/20/2025 Alpa Avelar Plan Of Treatment Next Appt Details Provider Name:Alpa phan, 07/06/2025 09:00:00 AM, [address] [place] [address], [phone], Progress Notes * DEANGELOChris RUDD MDOB:[birth year] (79 yo M)Acc No.[id number]:01/20/2025 Progress Note Patient: Chris MONTELONGO Provider: Ren Avelar DPM :1945 A ge:79 Y S ex:Male Date:01/20/2025 Address:[address] [place] [address], [place] Pcp:Liu Tomlinson Subjective: * Chief Complaints: * * Medical History: Objective: * Vitals: Assessment: Plan: * Treatment: * Images: * The named appointment provid er may or may not be the originator of this progress note, and it is not deemed complete until electronically signed by the appointment provider. Sign off status: Pending * Provider: Ren Avelar DPM Date: 0 01/20/2025 Generated for Candace prieto/Naveed/Topher on: 04:49 PM EDT
--- NOTE | 2025-06-07 13:34 | HO.NEPHOV_ITS ---
Vital Signs 06/07/25 13:35 Height 5 ft 8 in Weight 185 lb BMI 28.1 BP 104/52 L Blood Pressure Location Lt brachial Position Sitting Pulse 71 Pulse Source Pulse Oximeter Pulse Oximetry (%) 96 Oxygen Delivery Method Room Air Intake Visit Reasons: 1mon f/u-LVM Roll Scale Worker Required: No Accompanied by: Spouse Allergies demerol Allergy (Unknown, Uncoded 03/23/25 07:53) itching From DEMEROL Adverse Reaction (Mild, Uncoded 03/23/25 07:53) ITCHINESS Medication List - Last Reconciled 06/07/25 by Jovani Oneill MD amitriptyline 25 mg PO BEDTIME aspirin 81 mg PO DAILY atorvastatin 80 mg PO DAILY blood sugar diagnostic (FreeStyle Lite Strips) As directed blood-glucose sensor (FreeStyle Benita 3 Plus Sensor device) As directed blood-glucose,interactive media designer,cont (FreeStyle Benita 3 [place]) As directed citalopram 10 mg PO DAILY coenzyme Q10 (H2Q CoQ10) 100 mg PO cyclobenzaprine 10 mg PO TID PRN dicyclomine 10 mg PO DAILY empagliflozin (Jardiance) 25 mg PO DAILY 90 days ferrous sulfate 325 mg PO DAILY finasteride 5 mg PO DAILY furosemide 40 mg PO DAILY 90 days isosorbide mononitrate ER 120 mg PO DAILY metoprolol tartrate 100 mg PO BID rjszgaizywqn-gzgxcbrw-onzkbq 1 tab PO DAILY nitroglycerin 0.4 mg sublingual ONCE pantoprazole 40 mg PO DAILY pregabalin 75 mg PO TID 30 days tamsulosin (Flomax) 0.4 mg PO DAILY tirzepatide (Mounjaro) 7.5 mg (0.5 mL) subcut QWEEK 90 days HPI Comments Details: Mariajose is a 78-year-old man with history of longstanding hypertension and diabe apple mellitus complicated by coronary disease and mild CKD. He has pulmonary hypertension as well. He developed diarrhea with metformin which has improved. From a renal standpoint he is doing reasonably well. Continues have shortness of breath on exertion. He is being evaluated by Cardiology and Pulmonary. He is waiting for a 6 minutes stress test. 10/30: Now on Ozempic- self prescribed Also on Jardiance ;Diarrhea is better ;A1C is 5.8% 04/07/24; Off Benicar; Home BP is OK ; No further diarrhea ;No change in resp status ;c/o leg pain / ache when he walks 08/03/24;On ozempic ; No weight loss yet 11/10/24: Foot problems- seen by x ray technician Still on Ozempic and no further weight loss. No more diarrhea; HCT is still elevated 01/21/25 79-year-old male presenting with a follow-up on a renal cyst, chronic kidney disease, and diabetes mellitus. The renal cyst, approximately 1.1 cm, was first identified during a previous imaging study and has been regularly monitored. The patient has a history of chronic kidney disease with fluctuating creatinine levels between 1.3 and 1.5 mg/dL and a GFR of 45 to 55%. His diabetes mellitus further exacerbates his kidney condition, requiring cautious imaging strategies avoiding nephrotoxic contrast use. There are no reported symptoms related to the cyst or notable progression of kidney issues, but regular monitoring continues to be essential. 05/03/25 The patient is a 79-year-old male presenting with a follow-up for chronic kidney disease management, including diabetes and hypertension. Diabetes mellitus is managed with Mounjaro, with no significant weight loss yet but decreased appetite. Regular exercise includes cycling for half an hour every other day. Coronary artery disease is part of the patient's medical history. Hypertension is managed with amlodipine, currently being tapered due to low blood pressure. Amlodipine is reduced from 5 mg to 2.5 mg, with potential discontinuation if blood pressure remains low. Kidney cysts identified on ultrasound are benign, with a follow-up planned for May. Bunion causes discomfort due to toe friction. 06/07/25 - The patient is a 79-year-old male for follow up regardign CKD. - Hypotension: Blood pressure was low, - Renal cyst: Unchanged renal cyst on ultrasound. - Medication: On furosemide 40 mg and amlodipine 2.5 mg, considering discontinuation. - Exercise: Regular bicycling and dumbbell use. [facility] Medical History (Updated 03/23/25 @ 07:54 by Liu Tomlinson MD) Diabetes mellitus HTN (hypertension) Family History Father Heart attack Diabetes Mother Heart attack Lung cancer Social History Patient Tobacco Use Status: Never used Tobacco e-Cigarette/Vaping Use: Never Used Physical Exam Vital Signs: Last Vital Signs Pulse 71 06/07/25 13:35 BP 104/52 L 06/07/25 13:35 Pulse Ox 96 06/07/25 13:35 Oxygen Delivery Method Room Air 06/07/25 13:35 BMI result Body Mass Index 28.1 Comfortable Neck supple no JVD. Lungs entry equal no rales. Heart S1-S2 heard no gallop or rub. Abdomen soft nontender. Neuro alert awake oriented. No asterixis. Extremities no edema. Results Reviewed Results Reviewed: Jul 2024 US/US carotid duplex BI IMPRESSION: 1. RIGHT: Normal right internal carotid artery without atherosclerotic plaque or hemodynamically significant stenosis. 2. LEFT: Normal left internal carotid artery without atherosclerotic plaque or hemodynamically significant stenosis. 05/31/25 The kidneys are normal in echotexture bilaterally. No hydronephrosis. The right kidney is normal in size, measuring 11.3cm in length. The left kidney is normal in size, measuring 11.5cm in length. Midportion cyst measuring 2.2 x 1.5 x 1.7 cm with thin internal septations, Previously measuring 2.9 x 2.0 x 2.1 cm. Midportion cyst measuring 0.9 x 1.0 x 1.3 cm with thin internal septations, previously measuring 1.5 x 1.1 x 1.6 cm. Impression: No acute findings. Cysts in the left kidney with thin internal septations, similar to the prior study. Nephrology Results: Hgb, (14.0-18.0) 16.7 g/dl 04/30/25 WBC, (4.8-10.8) 6.6 X10*3/uL 04/30/25 Plt Count, (160-400) 119 X10*3/uL L 04/30/25 Sodium, (135-145) 140 mmol/L 04/30/25 Potassium, (3.3-5.1) 4.6 mmol/L 04/30/25 Chloride, (96-108) 104 mmol/L 04/30/25 Carbon Dioxide, (22-29) 28 mmol/L 04/30/25 BUN, (9-16) 19 mg/dL H 04/30/25 Creatinine, (0.5-1.4) 1.60 mg/dL H 04/30/25 Calcium, (8.4-10.2) 8.4 mg/dL 04/30/25 PTH Intact, (8.7-77.1) 164.4 pg/mL H 04/30/25 Urine Protein, (Neg-Trace) Negative mg/dL 04/30/25 Urine Creatinine 19.62 mg/dL 04/30/25 Renal US 05/31/25 Assessment & Plan Assessment & Plan (1) CKD (chronic kidney disease) stage 2, GFR 60-89 ml/min: Code(s): N18.2 - Chronic kidney disease, stage 2 (mild) Category: Medical (2) Renal cyst: Code(s): N28.1 - Cyst of kidney, acquired Category: Medical (3) HTN (hypertension): Code(s): I10 - Essential (primary) hypertension Category: Medical (4) Obesity: Code(s): E66.9 - Obesity, unspecified Category: Medical Plan . 1. Hypertension. Blood pressure is acceptable Amlodipine was lowered to 2.5 mg in apr 2025 due to low BP STOP Amlodipine today ( 06.07.25) 2. Nonischemic cardiomyopathy. Follow-up with [facility] Cardiology. 3. Chronic kidney disease stage 3. Serum creatinine stable at 1.54 in jul 2024 Now at 1.55 Fluid status is optimal. Next item no indication for a diuretic at this time. Will benefit from SGLT2 inhibitor. Continue to avoid nephrotoxic agents. 4. Polycythemia follow-up with Hematology 5. Diabetes mellitus. Recent A1C 6.7% ;Ozempic and the dose is being titrated. 6. Diarrhea has improved 7. Elevated LFTs- NEeds follow up with GI 8. Renal cyst- follow up USG ordered for 6 months May need evaluation based on USG Repeat USG in May 2025- Unchanged Orders: Orders Basic Metabolic Panel 2 Months I10 - Essential (primary) hypertension, N18.2 - Chronic kidney disease, stage 2 (mild) Coding Level of Care Code Est Pt Level 4 (92060) Diagnoses CKD (chronic kidney disease) stage 2, GFR 60-89 ml/min N18.2 Renal cyst N28.1 HTN (hypertension) I10 Obesity E66.9
[2025-06-07 13:35] VITALS: BP 104/52; PULSE 71; O2SAT 96; BMI 28.1
--- OUTSIDE RECORDS SUMMARY | 2025-06-07 16:49 | XMS_ITS | Patient Health Record ---
Author Organization [facility] Address [address] [place] [address] Care Team Providers Care Thread Weaver Name Role Phone Connor (RETIRED) , Jalil Primary Care Provider Unavailable Zurdo Frausto Jr Unavailable Allergies Allergen (clinical drug ingredient) Drug/Non Drug Allergy documented on EMR Reaction Allergy Type Onset Date Status meperidine Demerol Unknown Drug Allergy Active Results Component Value Reference Range Notes US abdomen complete Reviewed date:12/31/2024 10:36:45 AM Interpretation: Performing Lab: Notes/Report: [address] [address] Ultrasound Report Signed Patient: Chris Madrigal MR#: [id number] : 1945 Acct:[id number] Age/Sex: 79 / M ADM Date: 12/30/24 Loc: HO.US Attending Dr: Zurdo Frausto MD Ordering Physician: Zurdo Frausto MD Date of Service: 12/30/24 Procedure(s): US abdomen complete Accession Number(s): [id number] cc: Zurdo Frausto MD; Jalil Ryan MD [...] 12/30/24 0908 DD/ 0839 TD/TT: 12/30/24 0855 Graphite Grinder: Reason For Referral No Information Medications Medication [...] Notes Problem Gastroesophageal reflux disease without esophagitis (898921074) Gastroesophageal reflux disease without esophagitis (K21.9) Active confirmed Problem Diarrhea (06678833) Diarrhea, unspecified type (R19.7) Active confirmed Problem Incontinence of feces (53393209) Incontinence of feces, unspecified fecal incontinence type (R15.9) Active confirmed Problem Liver function tests abnormal (108450394) Abnormal LFTs (R79.89) Active confirmed Vital Signs Temperature 96.9 degrees Fahrenheit 11/23/2024 Blood pressure diastolic 01 mm Hg 11/23/2024 Height 68 in 11/23/2024 Blood pressure systolic 001 mm Hg 11/23/2024 Weight 188.4 lbs 11/23/2024 BMI 28.64 kg/m2 11/23/2024 Encounters Encounter Location Date Provider Diagnosis [facility] [address] [place] [address] 11/23/2024 Zurdo Frausto Jr Abnormal LFTs R79.89 ; Gastroesophageal reflux disease without esophagitis K21.9 and Diarrhea, unspecified type R19.7 [facility] [address] [place] [address] 12/31/2024 Zurdo Frausto Jr Assessments Encounter Date [...] 09:00:00 AM, [address], [address], [place], [address], Insurance Providers Payer Name Payer Address Payer Phone Subscriber Number Group Number Insured Name Patient Relationship to Insured Coverage Start Date Coverage End Date MEDICARE OF [facility] [address] [place] [address] [id number] CHRIS CONNOR Self - patient is the insured [employer] [address] [place] [address] [id number] CHRIS CONNOR Self - patient is the [...]
--- OUTSIDE RECORDS SUMMARY | 2025-06-07 16:49 | XMS_ITS | Encounter Summary ---
Author Organization [facility] Address [address] [facility] [address] [place] [address] Phone Care Team Providers Care Bradder Name Role Phone Jalil Ryan MD Primary Care Provider [phone] Encounter Details Date Type Department Care Team (Late st Contact Info) Description 02/17/2021 Orders Only [facility] [address] [place] [address] Jovani Oneill MD Hypertensive chronic kidney disease, [...] unspecified documented in this encounter Care Teams Bradder Relationship Specialty Start Date End Date Jalil Ryan MD [address] [place] [address] [address] [place] PCP - General Internal Medicine 01/25/21 documented as of this encounter
--- OUTSIDE RECORDS SUMMARY | 2025-06-07 16:50 | XMS_ITS | Clinical Summary ---
Author Organization [facility] Address [address] [address] [address] [place] [address] Phone Care Team Providers Care Facsimile Operator Name Role Phone Jalil Ryan MD Primary Care Provider [phone] Allergies Active Allergy Reactions Criticality Noted Date [...] average glucose, using the formula of the E2F-Sneniio Average Glucose study (ADAG), Diabetes Care, Vol.31,#8, Mar. 2007 02/02/2020 10:0 0 AM EDT us Hugo Reilly MD LAB BLOOD ORDERABLES Final Res ult [place] from Last 3 Months or Most Recently Relevant to Health Maintenance Insurance Medicare Member Subscriber Plan / Payer (Ef fective 2012-Present) Name:Chris Madrigal Member ID:[id number] Relation to Subscriber:Self Name:Chris Madrigal Subscriber ID:[id number] Payer ID:Not on file Group ID:Not on file Type:Not on file Address: [place] [id number] Medicare Care Teams Facsimile Operator Relationship Specialty Start Date End Date Jalil Ryan MD [address] [place] [address] [facility] P[facility] - General Internal Medicine 01/25/21
--- OUTSIDE RECORDS SUMMARY | 2025-06-07 16:50 | XMS_ITS | Patient Health Record ---
Author Organization [facility] Address [address] [place] [address] Care Team Providers Care Customer Assistant Name Role Phone Liu Tomlinson Primary Care Provider [phone] Alpa Avelar [phone] Allergies Allergen (clinical drug ingredient) Drug/Non Drug [...] Polyneuropathy due to type 2 diabetes mellitus (020260411) Type 2 diabetes mellitus with diabetic polyneuropathy (E11.42) Active confirmed Vital Signs Blood pressure diastolic 76 mm Hg 03/26/2025 Height 5ft 8in in 03/26/2025 Blood pressure systolic 121 mm Hg 03/26/2025 Weight 179 lbs 03/26/2025 BMI 27.21 kg/m2 03/26/2025 Encounters Encounter Location Date Provider Diagnosis [facility] [address] [address] 07/24/2024 Alpa Perica Neurotrophic ulcer o f left foot limited to breakdown of skin L97.521 and Type 2 diabetes mellitus with diabetic polyneuropathy E11.[address] [facility] [address] 08/07/2024 Alpa Perica Neurotrophic ulcer o f left foot limited to breakdown of skin L97.521 ; Type 2 diabetes mellitus with diabetic polyneuropathy E11.42 ; Tinea unguium B35.1 ; Other hammer toe(s) (acquired), left foot M20.42 and Hammer toe of right foot M20.[address] [address] 10/23/2024 Alpa Perica Neuropathic ulcer of right foot, limited to breakdown of skin L97.511 and Type 2 diabetes mellitus with diabetic polyneuropathy E11.[address] [address] 11/03/2024 Alpa Perica Type 2 diabetes mellitus with diabetic polyneuropathy E11.42 ; Neuropathic ulcer of right foot, limited to breakdown of skin L97.511 ; Tinea unguium B35.1 and Hammer toe of right foot M20.[address] [address] 11/13/2024 Alpa Perica Neuropathic ulcer of right foot, limited to breakdown of skin L97.511 ; Hammer toe of right foot M20.41 ; Type 2 diabetes mellitus with diabetic polyneuropathy E11.42 and Other hammer toe(s) (acquired), left foot M20.[address] [address] 01/13/2025 Alpa Perica Hallux valgus (acquired), left foot M20.12 ; Other hammer toe(s) (acquired), right foot M20.41 ; Other hammer toe(s) (acquired), left foot M20.42 ; Type 2 diabetes mellitus with diabetic polyneuropathy E11.42 ; Tinea unguium B35.1 ; Hallux valgus (acquired), right foot M20.11 and Ingrown nail L60.[address] [address] 03/26/2025 Apla Perica Hallux valgus (acquired), left foot M20.12 ; Other hammer toe(s) (acquired), right foot M20.41 ; Other hammer toe(s) (acquired), left foot M20.42 ; Type 2 diabetes mellitus with diabetic polyneuropathy E11.42 ; Tinea unguium B35.1 and Hallux valgus (acquired), right foot M20.[address] [place] [address] 07/02/2024 [facility] [address] 07/31/2024 Alpa Perica Cellulitis of toe of left foot L03.[address] [address] 07/31/2024 Alpa Perica Cellulitis of toe of left foot L03.032 [facility] [address] 10/13/2024 [facility] [address] 11/03/2024 Alpa Avelar Assessments Encounter Date Diagnosis [...] of right foot (ICD-10 - M20.41) 01/13/2025 Hallux valgus (acquired), right foot (ICD-10 - M20.11) 03/26/2025 Hallux valgus (acquired), right foot (ICD-10 - M20.11) 01/13/2025 Ingrown nail (ICD-10 - L60.0) 11/03/2024 Other Patient Educated with: WOUND CARE INSTRUCTIONS. pdf (WOUND CARE INSTRUCTIONS. pdf) 11/13/2024 Other Plan Of Treatment Pending Test Test Name Order Date X ray : Foot, left 3V 11/29/2023 13322-NEBNHJG NAIL, 6 OR MORE 10/12/2022 88251-LFETRYK NAIL, 6 OR MORE 06/11/2018 25045-OIDXPSU NAIL, 6 OR MORE 09/17/2018 02988-LICINPT NAIL, 6 OR MORE 12/15/2018 07544-DLRTHOX NAIL, 1-5 02/06/2016 25729-Ggkz Destruction, 1-14 05/19/2018 71231-Iwiu Destruction, 1-14 06/11/2018 31268-EWAK SKIN LESIONS, OVER 4 10/12/19 23 85374-XPKF SKIN LESIONS, 2 TO 4 12/16/19 19 68185-HXXZ SKIN LESIONS, 2 TO 4 06/11/20 18 20652-GRST SKIN LESIONS, 2 TO 4 02/06/20 16 68706-FNQI SKIN LESIONS, 2 TO 4 09/17/19 19 D5894-MDLZDEUP DYSTROPHIC NAILS ANY # [id number]-LAYNPQJY OF HEMATOMA/FLUID 023 10612,E3819-FVI TENDON SHEATH/LIGAMENT 0 09/17/2018 37895,O2071-CGJ TENDON SHEATH/LIGAMENT 0 12/15/2018 Next Appt Details Provider Name:Alpa phan, 07/06/2025 09:00:00 AM, [address] [place], [address], Insurance Providers Payer Name Payer Address Payer Phone Subscriber Number Group Number Insured Name Patient Relationship to Insured Coverage Start Date Coverage End Date Medicare [facility] [address] [place] [address] [phone] [id number] Chris Dawson Self - patient is the insured 2 for Life [address] [place] [address] [phone] [id number] Chris Dawson Self - patient is the [...] History Reason Date(Month/Year) urgent care- toe 10/13/24 [facility]- wound infection 0 02/27/24 [facility]/ Dehydration 07/19/22
== END 2025-06-07 13:53 | disposition home or self-care (01) ==
LOC: HO.HKA 13:39
PROVIDERS: PCP Internal Medicine; Visit Provider Internal Medicine Hypertension Specialist
DX: I12.9 Hypertensive chronic kidney disease with stage 1 through stage 4 chronic kidney disease, or unspecified chronic kidney disease (principal); N18.2 Chronic kidney disease, stage 2 (mild); N28.1 Cyst of kidney, acquired; E66.9 Obesity, unspecified
CPT/HCPCS: 99214

== ENCOUNTER → 2025-06-07 13:39 | Outpatient (BNVA) | payer MEDICARE, OTHER, SELFPAY | PROVIDERS: PCP Internal Medicine; Visit Provider Internal Medicine Hypertension Specialist | DX: I12.9 Hypertensive chronic kidney disease with stage 1 through stage 4 chronic kidney disease, or unspecified chronic kidney disease (principal); N18.2 Chronic kidney disease, stage 2 (mild); N28.1 Cyst of kidney, acquired; E66.9 Obesity, unspecified; Z68.28 Body mass index [BMI] 28.0-28.9, adult | CPT/HCPCS: 99212 ==

== ENCOUNTER 2025-07-28 11:05 | Outpatient (AMB) | payer MEDICARE, OTHER, SELFPAY ==
--- NOTE | 2025-07-28 11:11 | A.OFFPC_ITS ---
Vital Signs 07/28/25 11:16 Height 5 ft 8 in Weight 182 lb BMI 27.7 BP 118/70 Blood Pressure Location Lt brachial Position Sitting Pulse 68 Pulse Source Pulse Oximeter Temp 97.8 F Temp Source Temporal Artery Scan Pulse Oximetry (%) 94 Oxygen Delivery Method Room Air Intake Visit Reasons: 4 month f/u Pool Coordinator Required: No Accompanied by: Self / Same As Patient Allergies demerol Allergy (Mild, Uncoded 07/28/25 11:12) itching From DEMEROL Allergy (Unknown, Uncoded 07/28/25 11:12) ITCHINESS Medication List - Last Reconciled 07/28/25 by Jose Moody MD amitriptyline 25 mg PO BEDTIME aspirin 81 mg PO DAILY atorvastatin 80 mg PO DAILY blood sugar diagnostic (FreeStyle Lite Strips) As directed blood-glucose sensor ([employer] BiosciencesStyle Benita 3 Plus Sensor device) As directed blood-glucose,automatic maintainer,cont (FreeStyle Benita 3 [place]) As directed citalopram 10 mg PO DAILY coenzyme Q10 (H2Q CoQ10) 100 mg PO dicyclomine 10 mg PO DAILY empagliflozin (Jardiance) 25 mg PO DAILY 90 days ferrous sulfate 325 mg PO DAILY finasteride 5 mg PO DAILY furosemide 40 mg PO DAILY 90 days isosorbide mononitrate ER 120 mg PO DAILY metoprolol tartrate 100 mg PO BID 90 days zddcijfymtig-zzsovwhz-mlphag 1 tab PO DAILY mv,Ca,qjt-xjvx-DW-lycopene 8 mg iron- 200 mcg-600 mcg (Centrum Men) tabs PO pantoprazole 40 mg PO DAILY pregabalin 75 mg PO TID 30 days tamsulosin (Flomax) 0.4 mg PO DAILY tirzepatide (Mounjaro) 7.5 mg (0.5 mL) subcut QWEEK 90 days Tobacco use date assessed: 07/28/25 Fall risk assessment: No Falls in past year Last assessed Fall Risk: 07/28/25 Dental Screening Dental Screen Date: 07/28/25 Did you have a dental visit in the last 12 months?: Yes Did you have a dental problem in the last 6 months where you did not have access to dental care?: No HPI HPI Comments History of Present Illness Details History of Present Illness The patient is a 79 year old male presenting with follow-up for management of multiple chronic conditions and discussion of an incidental finding on a recent nuclear stress test. He has a history of type 2 diabetes mellitus, which is managed by an photovoltaic power systems engineer and his primary care physician. He has previously been on Trulicity and Ozempic, and is currently taking Mounjaro 7.5 mg and Jardiance 25 mg. His hemoglobin A1c was 6.2% in March. He checks his blood sugar daily with an average of 116 mg/dL. His father was diabetic and had a leg amputation. He has a history of coronary artery disease, congestive heart failure, and pulmonary hypertension. He is managed by a field enumerator, Dr. Torres. A recent nuclear scan, ordered by his field enumerator to rule out amyloidosis, was negative for that condition but showed an incidental finding in his stomach, possibly a gastric polyp. He also has stage 3B kidney disease and is followed by a forming machine upkeep mechanic, Dr. Estes. His blood pressure is well-controlled with an average systolic of 124 mmHg. He has a history of peripheral neuropathy in both his feet and hands, for which he takes amitriptyline and Lyrica 75 mg three times daily, taking two pills at night and one during the day. He reports this regimen is helping. He also has a history of hammer toes, which were surgically corrected, and now has a bunion on his big toe that causes rubbing and lesions when he walks extensively. About 10 years ago, he experienced double vision and was told he may have had a minor transient ischemic attack (TIA). He also reports some age-related memory forgetfulness. For weight management, his field enumerator recommended he lose 10-15 pounds. He is currently on Mounjaro 7.5 mg. He engages in some physical activity, including using a bicycle and light weights. Medical History: - Type 2 diabetes mellitus - Peripheral neuropathy - Coronary artery disease - Hypercholesterolemia - Mood disorder - History of transient ischemic attack ( TIA) approximately 10 years ago, presenting as double vision - Congestive heart failure - Benign prostatic hyperplasia - Stage 3B chronic kidney disease - Pulmonary hypertension - Bunion Surgical History: - Hammer toe surgery Medications: - Amitriptyline for neuropathic pain - Lyrica 75 mg three times a day for gopal ropathic pain - Alpha-lipoic acid (wdqj-sdz-veuczen) - Aspirin 81 mg for coronary artery dise ase - Atorvastatin 80 mg for cholesterol - Citalopram 10 mg for mood - Jardiance 25 mg for diabetes and conge stive heart failure - Mounjaro 7.5 mg for diabetes and weigh t loss - Finasteride 5 mg for prostate (recentl y stopped) - Furosemide 40 mg for heart condition - Isosorbide mononitrate 120 mg for hear t condition - Metoprolol tartrate 100 mg twice a day for heart condition - Tamsulosin for prostate Family History: - Father: Had diabetes and underwent a l eg amputation Diagnostic Results: - Tests and Diagnostics: - Nuclear stress test: Negative for amyl oidosis; incidental finding in the stomach suggestive of a gastric polyp - Labs: - Blood work (April): Good counts an d electrolytes - Hemoglobin A1c (March): 6.2% Social History - Substance Use: Denies alcohol use. - Exercise: Reports being very active. - His activities include using a bicycle , light weights, and going for long walks. - He has attended pulmonary classes to l earn breathing techniques and to slow his walking pace. - He reports difficulty walking uphill. - Travel: The patient frequently takes [employer] [facility] Medical History (Updated 07/28/25 @ 12:18 by Jose Moody MD) Bunion Congestive heart failure (CHF) Polyp of stomach and duodenum Diabetes mellitus HTN (hypertension) Surgical History History of colonoscopy (~12/12/17) Family History (Updated 07/28/25 @ 11:25 by Selina Whitaker MA) Father Heart attack Diabetes Mother Heart attack Lung cancer Social History Housing: Condominium Patient Tobacco Use Status: Never used Tobacco e-Cigarette/Vaping Use: Never Used service: No Current occupational status: retired Cognitive needs: No Hearing needs: No Vision needs: No Questionnaire PHQ-9 Over the last 2 weeks, how often have you been bothered by any of the following problems? 1. Little interest or pleasure in doing things: not at all 2. Feeling down, depressed, or hopeless: not at all 3. Trouble falling or staying asleep, or sleeping too much: not at all 4. Feeling tired or having little energy: not at all 5. Poor appetite or overeating: not at all 6. Feeling bad about yourself - or that you are a failure or have let yourself or your family down: not at all 7. Trouble concentrating on things, such as reading the newspaper or watching television: not at all 8. Moving or speaking so slowly that other people could have noticed. Or the opposite - being so fidgety or restless that you have been moving around a lot more than usual: not at all 9. Thoughts that you would be better off or of hurting yourself in some way: not at all Total score: 0 Depression Screening Interpretation: Negative Depression Screening Done: Yes Source: Developed by Drs. [place], Sandy June, Albino Orona and colleagues, with an educational noreen from [employer]. Thrive Questionnaire Date Thrive assessed: 07/28/25 I am a: Patient What is your living situation today?: I have a steady place to live Within the past 12 months, did the food you bought not last and you didn't have the money to get more?: Never true Within the past 12 months, did you worry whether your food would run out before you got money to buy more?: Never true Do you have trouble paying for medicines?: No Do you have trouble getting transportation to medical appointments?: No Do you have trouble paying your heating and electricity bill?: No Do you have trouble taking care of your child, family member or friend?: No Do you have trouble with day-to-day activities such as bathing, preparing meals, shopping, managing finances, etc.?: No Are you currently unemployed and looking for a job?: No Are you interested in more education?: No THRIVE Score: 0 AUDIT C Alcohol Use Questionnaire (AUDIT-C) 1. How often do you have a drink containing alcohol?: Never 3. How often do you have six or more drinks on one occasion?: Never Total Score: 0 MIREILLE-7 AMB Questionnaire MIREILLE-7 Date MIREILLE - 7 assessed: 07/28/25 Feeling nervous, anxious, or on edge: 0 = Not at all Not being able to stop or control worryin = Not at all Worrying too much about different things: 0 = Not at all Trouble relaxin = Not at all Being so restless that it is hard to sit still: 0 = Not at all Becoming easily annoyed or irritable: 0 = Not at all Feeling afraid as if something awful might happen: 0 = Not at all Total MIREILLE-7 score (0-4 normal; 5-9 mild; 10-14 moderate; 15-21 severe): 0 Source: Developed by Drs. [place], Sandy June, Albino Orona and colleagues, with an educational noreen from [employer]. Review of Systems Narrative Review of Systems - Neurological: Reports neuropathy in both feet and hands. - Reports memory impairment, described as forgetting a few things. - History of double vision. - Respiratory: Reports dyspnea on exertion, particularly when going up stairs fast or uphill. - Extremities: Reports that his feet rub together causing lesions when walking extensively. - Constitutional: Reports difficulty losing weight. - Gastrointestinal: Reports having a large stomach. - Denies symptoms from Mounjaro. All systems reviewed & are unremarkable except as reviewed in HPI and above Physical exam (Primary Care) Vital Signs: Last Vital Signs Temp 97.8 F 07/28/25 11:16 Pulse 68 07/28/25 11:16 BP 118/70 07/28/25 11:16 Pulse Ox 94 07/28/25 11:16 Oxygen Delivery Method Room Air 07/28/25 11:16 Care Plan Goal for BP management: [place] GOal Next steps: Continue medications BMI result Body Mass Index 27.7 Tobacco/Smoking Status: Tobacco use Status Tobacco use date assessed 07/28/25 07/28/25 11:13 Patient Tobacco Use Status Never used Tobacco 07/28/25 11:13 e-Cigarette/Vaping Use Never Used 07/28/25 11:13 PHQ-9: PHQ-9 Score PHQ-9: Total score 0 07/28/25 11:51 Depression Screening Interpretation: Negative Thrive Assessment: Date of Thrive Assessment Date Thrive assessed 07/28/25 07/28/25 11:13 Narrative Physical Exam General: +Alert and oriented, Well nourished, No acute distress. Eye: Pupils are equal, round and reactive to light, Intact accommodation, Extraocular movements are intact, Normal conjunctiva, Vision unchanged. HENT: Normocephalic, Atraumatic, Tympanic membranes are clear, Normal hearing, Oral mucosa is moist, No pharyngeal erythema, Ear canals patent. Respiratory: Lungs CTA bilaterally, No wheeze, Respirations are non-labored, Pulmonary fibrosis, Pulmonary hypertension noted. Cardiovascular: Regular rate, Regular rhythm, S1 auscultated, S2 auscultated, No murmur, Good pulses equal in all extremities, Normal peripheral perfusion, No edema, Congestive heart failure. Gastrointestinal: Soft, Non-tender, Non-distended, Normal bowel sounds, No organomegaly, Gastric polyps noted. Musculoskeletal: Normal range of motion, Normal strength, No tenderness, No swelling, No deformity, Normal gait, Bunion and hammer toes noted on right foot. Integumentary: Warm, Dry, [place], Intact. Neurologic: Alert, Oriented, Normal sensory, Normal motor function, No focal defects, Cranial Nerves II-XII are grossly intact, Normal deep tendon reflexes, History of double vision possibly due to minor TIA. Psychiatric: Cooperative, Appropriate mood & affect, Normal judgment. This encounter qualifies as a Level 5 established patient visit due to the high complexity of medical decision-making required. The patient has multiple chronic conditions with significant morbidity?including congestive heart failure, coronary artery disease, pulmonary hypertension, stage 3B chronic kidney disease, type 2 diabetes mellitus, and peripheral neuropathy?each requiring active management and medication coordination among multiple specialists. The visit involved reviewing and integrating results of a recent nuclear stress test with an incidental gastric finding requiring upcoming endoscopic evaluation, assessing risk?benefit of medication adjustment (declining Mounjaro dose escalation due to risk of overtreatment), and managing polypharmacy involving several high-risk cardiovascular, renal, and neuropathic agents. Additional complexity stems from the patient?s upcoming surgery and need for ongoing monitoring of weight loss, neuropathy, and CKD progression. The overall medical decision-making reflects high risk and complexity consistent with CPT 62739. Coding Level of Care Code Est Pt Level 5 (75231) Add On Problem Visit Only Diagnoses Polyp of stomach and duodenum K31.7 Type 2 diabetes mellitus with diabetic polyneuropathy, without long-term current use of insulin E11.42 Diabetes mellitus type: type 2 Diabetes mellitus fci insulin use: without rodent exterminator use Diabetes mellitus complication status: with neurologic complications Diabetes mellitus complication detail: with polyneuropathy Chronic congestive heart failure, unspecified heart failure type I50.9 Heart failure type: unspecified Heart failure chronicity: chronic Hypertension, unspecified type I10 Hypertension type: unspecified CKD (chronic kidney disease) stage 2, GFR 60-89 ml/min N18.2 Bunion M21.619 Assessment & Plan Assessment & Plan (1) Polyp of stomach and duodenum: Comment: - A recent nuclear scan showed a possible gastric polyp. - The patient has a follow-up endoscopy scheduled with Dr. Frausto next Saturday to investigate this finding. - An incidental finding was also noted in his colon, and a colonoscopy will be performed at the same time. - Will await biopsy results. Code(s): K31.7 - Polyp of stomach and duodenum Category: Medical (2) Diabetes mellitus: Comment: - The patient's diabetes is well-controlled with an [place] A1c of 6.2% and good daily glucose monitoring. - He is currently on Jardiance 25 mg and Mounjaro 7.5 mg. - The patient expressed a desire to increase the Mounjaro dose to 10 mg for further weight loss, but it was recommended to maintain the current dosage due to excellent glycemic control and to avoid potential side effects of dose escalation. Code(s): E11.9 - Type 2 diabetes mellitus without complications Category: Medical Qualifiers: Diabetes mellitus type: type 2 Diabetes mellitus fci insulin use: without fci use Diabetes mellitus complication status: with neurologic complications Diabetes mellitus complication detail: with polyneuropathy Qualified Code(s): E11.42 - Type 2 diabetes mellitus with diabetic polyneuropathy (3) Congestive heart failure (CHF): Comment: - The patient is followed by a field enumerator. - His blood pressure is well-controlled, which is beneficial for his heart function. - Jardiance, an SGLT2 inhibitor, provides dual benefit for his diabetes and heart failure. Code(s): I50.9 - Heart failure, unspecified Category: Medical Qualifiers: Heart failure type: unspecified Heart failure chronicity: chronic Qualified Code(s): I50.9 - Heart failure, unspecified (4) HTN (hypertension): Comment: - His blood pressure is well-controlled, which is beneficial for his heart function. - Blood pressure management is co-managed by his forming machine upkeep mechanic. Code(s): I10 - Essential (primary) hypertension Category: Medical Qualifiers: Hypertension type: unspecified Qualified Code(s): I10 - Essential (primary) hypertension (5) CKD (chronic kidney disease) stage 2, GFR 60-89 ml/min: Comment: - He is followed by a forming machine upkeep mechanic, Dr. Estes, who is also managing his blood pressure. - He recently stopped taking finasteride due to its effect on his blood pressure. Code(s): N18.2 - Chronic kidney disease, stage 2 (mild) Category: Medical (6) Bunion: Comment: - He experiences rubbing and lesions on his feet due to a bunion. - He is scheduled for a preoperative evaluation in October for a planned bunion shaving procedure on his right foot. - He will have a similar procedure on his left foot at a later date after the first one heals. Code(s): M21.619 - Bunion of unspecified foot Category: Medical Plan: Health Maintenance: - Colon Cancer Screening: The patient is scheduled for a colonoscopy to be performed concurrently with his upcoming endoscopy. - Weight Management: The patient's field enumerator recommended a 10-15 pound weight loss. - He was encouraged to continue his active lifestyle and to take long walks during his upcoming three-month trip to [place] to facilitate weight loss. - The patient was advised against increasing his Mounjaro dose at this time due to good glycemic control. Patient was informed and verbally consented to the use of an ambient scribe for clinic note documentation during this visit. Plan I reviewed the patient's multiple chronic conditions and recent diagnostic findings. We discussed the incidental finding on his nuclear scan, and I noted he has an endoscopy scheduled with Dr. Frausto next week to investigate; a colonoscopy will be performed at the same time. We discussed his type 2 diabetes management. I explained that because his sugars are extremely well-controlled with an A1c of 6.2%, I would not recommend increasing his Mounjaro dose from 7.5 mg to 10 mg as he requested. I advised that doing so could push his A1c too low and expose him to unnecessary side effects, as we are still learning about the long-term effects of these medications. I encouraged the patient to continue with his current level of physical activity, as it is working well for him. I suggested he use his upcoming three- month trip to [place] as an opportunity for long walks to aid in his weight loss efforts. We clarified the process for medication refills, explaining that most prescriptions are sent as a 90-day supply with one refill. I also explained that for a controlled substance like Lyrica, I cannot provide extra prescriptions as it is a liability and is traced. I confirmed his follow-up appointment in October for preoperative clearance for his planned foot surgery. Patient Instructions: - Proceed with your scheduled endoscopy and colonoscopy with Dr. Frausto next Saturday. - Do not increase your Mounjaro dose. Continue taking it at the current 7.5 mg dose. - Continue your current medications as prescribed for your heart, blood pressure, cholesterol, and nerve pain. - Continue to monitor your blood sugar and blood pressure at home. - Continue your current physical activities, such as using the bicycle and light weights. - While in [place], try to go for long walks. - Contact the pharmacy for refills. They will contact our office for authorization. Remember that Lyrica is a controlled substance and requires a new prescription request each time. - Keep your follow-up appointment in October for your pre-operative check-up for your foot surgery.
[2025-07-28 11:16] VITALS: BP 118/70; PULSE 68; TEMP 36.6; O2SAT 94; BMI 27.7
== END 2025-07-28 12:07 | disposition home or self-care (01) ==
LOC: HO.HMCHD 11:05
PROVIDERS: PCP Internal Medicine; Visit Provider Student in an Organized Health Care Education/Training Program
DX: I13.0 Hypertensive heart and chronic kidney disease with heart failure and stage 1 through stage 4 chronic kidney disease, or unspecified chronic kidney disease (principal); E11.42 Type 2 diabetes mellitus with diabetic polyneuropathy; I50.9 Heart failure, unspecified; N18.2 Chronic kidney disease, stage 2 (mild); K31.7 Polyp of stomach and duodenum; M21.611 Bunion of right foot

== ENCOUNTER → 2025-07-28 11:05 | Outpatient (BNVA) | payer MEDICARE, OTHER, SELFPAY | PROVIDERS: PCP Internal Medicine; Visit Provider Student in an Organized Health Care Education/Training Program | DX: E11.42 Type 2 diabetes mellitus with diabetic polyneuropathy (principal); I50.9 Heart failure, unspecified; K31.7 Polyp of stomach and duodenum; I10 Essential (primary) hypertension; N18.2 Chronic kidney disease, stage 2 (mild); M21.611 Bunion of right foot; Z13.31 Encounter for screening for depression; Z13.39 Encounter for screening examination for other mental health and behavioral disorders | CPT/HCPCS: 96127; 99212 ==

== ENCOUNTER 2025-08-02 09:15 | Outpatient (REF) | payer MEDICARE, OTHER, SELFPAY ==
[2025-08-02 09:38] LABS: MANUAL DIFF FLAG NO
[2025-08-02 10:26] LABS: Hematocrit 49.2 % (42.0-52.0); Hemoglobin 16.7 g/dl (14.0-18.0); Imm Gran Abs Auto 0.07 X10*3/uL (0.00-0.03); Imm Gran Pct Auto 1.1 % (0.0-0.4); Lymphocytes Absolute Auto 1.0 X10*3/uL (1.2-4.9); Mean Corpuscular HGB Conc 33.9 g/dl (31.0-36.0); Mean Corpuscular Hemoglobin 30.0 pg (27.0-33.0); Mean Corpuscular Volume 88.3 fL (80.0-98.0); NRBC Abs Auto 0.000 X10*3/uL (0.0-0.012); NRBC Pct Auto 0.0 /100WBC (0.0-0.2); Platelet Count 105 X10*3/uL (160-400); Red Blood Count 5.57 X10*6/uL (4.60-5.80); White Blood Count 6.6 X10*3/uL (4.8-10.8)
[2025-08-02 10:41] LABS: Alanine Aminotransferase 53 U/L (0-40); Albumin Level 3.7 g/dL (3.5-5.0); Alkaline Phosphatase 138 U/L (39-117); Anion Gap 11 (12-20); Aspartate Amino Transferase 32 U/L (5-37); Blood Urea Nitrogen 14 mg/dL (9-16); Calcium 8.2 mg/dL (8.4-10.2); Carbon Dioxide 28 mmol/L (22-29); Chloride 105 mmol/L (96-108); Estimated Glomerular Filt Rate 43; Potassium 3.7 mmol/L (3.3-5.1); Sodium 140 mmol/L (135-145); Total Protein 5.4 g/dL (6.5-8.0)
[2025-08-02 11:16] LABS: Appearance Urine Clear; Glucose Urine UA >=1000 mg/dL (Negative); PH 5.0 (5.0-9.0); Specific Gravity - Urine 1.020 (1.005-1.025); UMIC TRIGGER UA YES
== END 2025-08-02 09:16 | disposition home or self-care (01) ==
LOC: HO.LAB 09:15
PROVIDERS: PCP Student in an Organized Health Care Education/Training Program; Visit Provider Internal Medicine Hypertension Specialist
DX: N18.2 Chronic kidney disease, stage 2 (mild) (principal)
CPT/HCPCS: 36415; 80053; 81001; 81003; 85025; 85027

== ENCOUNTER 2025-08-03 06:46 | Day surgery (SDC) | payer MEDICARE, OTHER, SELFPAY ==
--- NOTE | 2025-07-30 10:39 | HO.ANESPROP2 ---
Documented by User: Amirah Jones NP 07/30/25 10:57 HPI - Anesthesia Eval Consult details Narrative: 79yo M for Upper Endoscopy Follows [facility] Cardiology for CAD s/p PCI, HFpEF, Ischemic CMP. Stable at 05/2025 office visit for 6 month f/u. Repeat NM Tumor SPECT ordered and complete (Findings are not suggestive of ATTR amyloidosis) Follows [facility] Pulmo for pulmo htn. Stable at 07/2024 office visit with routine 1 year f/u. Encouraged weight loss. Follows [facility] [place] Renal for CKD St 2. Last office visit 05/2025. Amlodipine stopped d/t hypotension. Anesthesia Pre-Procedure Meds Is the patient on any of the following meds?: GLP1/DPP4 and SGLT2 Inhib PMFSH Active Problems Active Problems: All Active Problems Bunion (Acute) Congestive heart failure (CHF) (Acute) Polyp of stomach and duodenum (Acute) Diabetes mellitus (Acute) Renal cyst (Acute) Obesity (Acute) Pulmonary fibrosis (Acute) HTN (hypertension) (Acute) CKD (chronic kidney disease) stage 2, GFR 60-89 ml/min (Acute) Past Medical History Medical History Polycythemia Pulmonary hypertension CKD (chronic kidney disease) JACQUELIN (obstructive sleep apnea) CAD (coronary artery disease) Bunion Congestive heart failure (CHF) Polyp of stomach and duodenum Diabetes mellitus HTN (hypertension) Family History Family History Father Heart attack Diabetes Mother Heart attack Lung cancer Surgical History Surgical History History of colonoscopy (~12/12/17) Social History Social History Housing: Condominium Patient Tobacco Use Status: Never used Tobacco e-Cigarette/Vaping Use: Never Used Advance Directives: No Advance Directives Information Provided: Yes service: No Current occupational status: retired Cognitive needs: No Hearing needs: No Vision needs: No Meds Allergies Allergy/AdvReac Type Severity Reaction Status Date / Time meperidine (From Demerol) Allergy Intermediate Itching Verified 08/03/25 07:31 Home Medications ?Medication ?Instructions ?Recorded ?Confirmed ?Last Taken ?Type citalopram 10 mg tablet 10 mg PO DAILY 06/19/23 07/30/25 Unknown History aspirin 81 mg tablet,delayed 81 mg PO DAILY 10/31/23 08/03/25 07/31/25 History release coenzyme Q10 200 mg/gram oral 100 mg PO DAILY 10/31/23 07/30/25 Unknown History powder (H2Q CoQ10) ferrous sulfate 325 mg (65 mg 325 mg PO DAILY 10/31/23 07/30/25 Unknown History iron) tablet ikgazsgsvdlp-uozskenf-npajtb tablet 1 tab PO DAILY 10/31/23 07/28/25 Unknown History blood sugar diagnostic (FreeStyle #10 ea 03/22/25 06/07/25 Unknown History Lite Strips) multivit,Ca,min-iron 8 mg-folic 1 tab PO DAILY 07/28/25 07/30/25 Unknown History acid 200 mcg-lycopene 600 mcg tablet (Centrum Men) Exam Pertinent Lab Results Pertinent Lab Results: Laboratory Tests 04/30/25 11:37 WBC 6.6 Hgb 16.7 Hct 48.5 Plt Count 119 L Sodium 140 Potassium 4.6 Chloride 104 Carbon Dioxide 28 BUN 19 H Creatinine 1.60 H Narrative Narrative: NM Tumor SPECT 06/2025 FINDINGS: Image quality is excellent. Cardiac uptake is absent (Grade 0). Ancillary findings: Bibasilar atelectasis. Trace bilateral pleural effusion. Round isodense focus with a rim of hypodensity, could be a gastric polyp or ingested material. Mild vascular calcification. Status post cholecystectomy. Mild coronary artery calcifications. IMPRESSION: Findings are not suggestive of ATTR amyloidosis. ECGECG 12-Lead ? 16:37:55 Please click on pdf link to open report ? Signed By: Linda Trujillo MD ? ECG 12-Lead ? 16:37:55 Ventricular Rate: 69 BPM QRS Duration: 70 ms Q-T Interval: 388 ms QTC Calculation(Bazett): 415 ms R [place]: 20 degrees T [place]: 34 degrees Sinus rhythm Low voltage QRS Abnormal ECG When compared with ECG of 03-NOV-2020 06:00, slight change in R wave progression consider lead misplacement Confirmed ? Signed By: Cassandra CARDENAS, Linda Valdez Stress Test NM Myocard Perf SPECT Multi ? 13:00:00 Summary 1. Myocardial perfusion imaging is normal without any fixed or reversible perfusion defect after exercise stress test. 2. LV function is normal with an E.F. of greater than 75 % at rest and 70 % with stress with normal wall motion and thickening. 3. EKG portion of the stress test is reported separately. Signatures _ _ ? Signed By: Tia Nuñez MD CPET (Cardiopulmonary Exercise Testing) ? 11:37:21 Please click on link to see image. ? CPET (Cardiopulmonary Exercise Testing) ? 11:37:21 Conclusion: Moderately impaired exercise capacity and mildly impaired aerobic capacity. The finding of RER (1.16) over 1.15 and low breathing reserve indicates a maximal exercise attempt. There is likely combined cardiac and pulmonary factors limiting exercise, with early anaerobic threshold and blunted heart rate response related to cardiac factors, and breathing reserve below 20% (VEmax above 80% of predicted MVV) and fall in O2 saturation with exercise consistent with pulmonary limitation to exercise. Note that there are differences in measured and predicted values from [employer] to those used in [employer] reports, with [employer] analysis of this study having work 68 kimbrough (43%), peak VO2 1.454 L/min (77%), 16.8 ml/kg/min (82%), VO2 at AT of 0.903 L/min, and VE/VCO2 slope of 28.0. Interpreting Physician: Pro Augustin M.D. EchoEchocardiogram - Complete ? 09:47:27 Summary 1) The LV systolic function is normal. The left ventricular ejection fraction is 60-65%. There are no regional wall motion abnormalities. 2) The left ventricular wall thickness is mildly increased. 3) The right ventricular size and function appears grossly normal. 4) No significant valvular abnormalities. 5) An accurate pulmonary artery pressure could not be obtained. Comparison Comparison is made to the report of the study of July 03, 2022. There is no significant change. Assessment and Plan Assessment Anesthesia Assessment: Chart Reviewed Documented by User: Mary Ragland MD 08/03/25 08:04 [facility] Past Medical History Medical History Polycythemia Pulmonary hypertension CKD (chronic kidney disease) JACQUELIN (obstructive sleep apnea) CAD (coronary artery disease) Bunion Congestive heart failure (CHF) Polyp of stomach and duodenum Diabetes mellitus HTN (hypertension) Family History Family History Father Heart attack Diabetes Mother Heart attack Lung cancer Surgical History Surgical History History of colonoscopy (~12/12/17) History of Problems with Anesthesia: No Social History Social History Housing: Condominium Patient Tobacco Use Status: Never used Tobacco e-Cigarette/Vaping Use: Never Used Advance Directives: No Advance Directives Information Provided: Yes service: No Current occupational status: retired Cognitive needs: No Hearing needs: No Vision needs: No Meds Allergies Allergy/AdvReac Type Severity Reaction Status Date / Time meperidine (From Demerol) Allergy Intermediate Itching Verified 08/03/25 07:31 Home Medications ?Medication ?Instructions ?Recorded ?Confirmed ?Last Taken ?Type citalopram 10 mg tablet 10 mg PO DAILY 06/19/23 07/30/25 Unknown History aspirin 81 mg tablet,delayed 81 mg PO DAILY 10/31/23 08/03/25 07/31/25 History release coenzyme Q10 200 mg/gram oral 100 mg PO DAILY 10/31/23 07/30/25 Unknown History powder (H2Q CoQ10) ferrous sulfate 325 mg (65 mg 325 mg PO DAILY 10/31/23 07/30/25 Unknown History iron) tablet fbujnckaapim-nwbdxvpu-crahum tablet 1 tab PO DAILY 10/31/23 07/28/25 Unknown History blood sugar diagnostic (FreeStyle #10 ea 03/22/25 06/07/25 Unknown History Lite Strips) multivit,Ca,min-iron 8 mg-folic 1 tab PO DAILY 07/28/25 07/30/25 Unknown History acid 200 mcg-lycopene 600 mcg tablet (Centrum Men) Exam Airway Mallampati Class: III TM Dist: >3cm Neck ROM: Full Loose/Missing/Broken Teeth: No Heart: RRR Lungs: CTA Assessment and Plan Assessment Anesthesia Assessment: Anesthesia Plan Discussed Final Anesthetic Review History of Problems with Anesthesia: No NPO: Yes ASA Class: III Final Preanesthetic Review: Meds/Allgs Chart Reviewed, Consent Obtained/Reviewed and Anes Risks/Benef Reviewed Patient Risk: Intermediate Procedure Risk: Intermediate Anesthetic Plan Anesthetic Plan: MAC: Disposition: Standard PACU
[2025-07-30 14:23] VITALS: BMI 27.8
[2025-08-03 07:30] LABS: Glucose, Whole Blood 169 mg/dL (60-115)
[2025-08-03 07:33] VITALS: BMI 27.6
--- NOTE | 2025-08-03 07:34 | MHC.SHP ---
Pre-Procedural Eval Section A - 24 Hr Update-Section A only Date of Service: 08/03/25 The patient is an INPATIENT: No Changes since office visit: No Cold of Flu in the past 2 weeks, No New Medical Problems, No Changes in Medication and No Patient answered all questions The patient has been examined within 24 hours of the surgical procedure. The History & Physical has been completed within 30 days and I have reviewed it.: Yes Section B - Complete if H&P > 30 days Chief Complaint: Abnormal findings on diagnostic imaging of other Allergies: Allergies Allergy/AdvReac Type Severity Reaction Status Date / Time meperidine (From Demerol) Allergy Intermediate Itching Verified 08/03/25 07:31 Plan I have reviewed the history and physical and performed a pertinent physical examination on my patient. No changes have occurred unless specified. Time Spent With Patient Time: Total time managing care of this patient today ____ minutes.
[2025-08-03 07:41] VITALS: BP 183/80; PULSE 68; RESP 18; TEMP 36.1; O2SAT 99
[2025-08-03] MEDS: Lactated Ringers 1,000 ML 50 ML IVCONT (07:50)
[2025-08-03 08:30] VITALS: BP 119/62; PULSE 68; RESP 18; TEMP 36.3; O2SAT 99
[2025-08-03 08:40] VITALS: BP 121/68; PULSE 71; RESP 20; O2SAT 96
[2025-08-03 08:50] VITALS: BP 133/73; PULSE 72; RESP 12; TEMP 36.6; O2SAT 95
--- NOTE | 2025-08-03 09:01 | OP_ITS ---
DATE OF SERVICE: 08/03/2025 SURGEON: Zurdo Frausto MD INDICATIONS: Abnormal MRI imaging of the stomach. PREOPERATIVE DIAGNOSIS: POSTOPERATIVE DIAGNOSIS: PROCEDURE PERFORMED: Upper endoscopy with biopsy. ESTIMATED BLOOD LOSS: COMPLICATIONS: ANESTHESIA: Medications; monitored anesthesia care. ASSISTANTS: SPECIMENS: DESCRIPTION OF PROCEDURE: A history and physical were performed. The risks and benefits of the procedure were explained to the patient and informed consent was obtained. The patient was placed in the left lateral decubitus position. The Olympus video gastroscope was introduced into the esophagus, stomach, and duodenum. Examination was performed. The scope was removed. He tolerated the procedure well and was taken to recovery area in stable condition. FINDINGS: 1. Esophagus: The esophagus was normal. 2. Stomach: The stomach showed multiple gastric polyps, some of which appeared inflamed and were approximately 1.5 to 2 cm in diameter. There was no active bleeding. Biopsies were obtained from multiple larger polyps. No sign of malignancy or abnormal ingested material was identified. The stomach was very nodular. Biopsies were obtained from the polyps as above. 3. Duodenum: The bulb and 2nd portion were normal. IMPRESSION: Gastric polyps. RECOMMENDATION: Follow up the biopsy results. MD JEAN PAUL Ruiz/CYNDEE / [id number]
== END 2025-08-03 09:39 | disposition home or self-care (01) ==
PROVIDERS: PCP Internal Medicine; Visit Provider Internal Medicine Gastroenterology
PROC: 0DJ08ZZ Inspection of Upper Intestinal Tract, Via Natural or Artificial Opening Endoscopic (ICD-10-PCS; CPT 43235; principal; 2025-08-03 08:10)
DX: R93.3 Abnormal findings on diagnostic imaging of other parts of digestive tract (principal); K31.7 Polyp of stomach and duodenum; E11.9 Type 2 diabetes mellitus without complications; K21.9 Gastro-esophageal reflux disease without esophagitis
CPT/HCPCS: 43239; 82947; 88305; 88313; 88342; J2003; J2704